=== PATIENT | female | born 2005 | race Caucasian/White ===

== ENCOUNTER 2025-05-24 09:24 | Emergency (ER) | payer MEDICAID, SELFPAY ==
[2025-05-24 09:25] VITALS: BP 146/82; PULSE 80; RESP 16; TEMP 36.7; O2SAT 99; BMI 24.6
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
[2025-05-24 11:02] LABS: Mucous, Urine 0 SEEN /hpf (<or=2+); Red Blood Cells-Urine 0 SEEN /hpf (0-5); Squamous Epithelial Cells - UA 0 SEEN /hpf (5-10)
[2025-05-24 11:07] LABS: Color, Urine Yellow (Yellow); Glucose, Dipstick Normal (Normal); Ketone-Dipstick Negative (Negative); Leukocyte Esterase-Dipstick Negative /ul (Negative); Nitrite-Dipstick Negative (Negative); Occult Blood-Urine 50 /ul (Negative); Protein-Dipstick 15 mg/dl (Negative); Specific Gravity, Urine 1.010 (1.002-1.030); Urine Bilirubin Dipstick Negative (Negative)
[2025-05-24 11:15] LABS: Internal QC Validated? YES +Cl - CLEAR BKGD; Pregnancy, Urine Negative Negative; Record Kit Lot#,Urine Preg 962302
[2025-05-24 11:25] VITALS: BP 124/79; PULSE 71; RESP 16; O2SAT 100
--- NOTE | 2025-05-24 11:39 | US_ITS ---
PROCEDURE: PELVIC (NON ) 05/24/2025 REASON FOR EXAM: PELVIC PAIN TECHNIQUE: PELVIC (NON ) COMPARISON: None FINDINGS: LMP: March 28, 2025. Measurements: Uterus: 6.2 cm x 4 cm x 3.1 cm with a volume of 40.87 mL Endometrial Thickness: 5.1 mm. Right Ovary: 2.8 cm x 2.7 cm x 2.1 cm with a volume of 8.38 mL. Left Ovary: 2.7 cm x 2.7 cm x 2.5 cm with a volume of 9.63 mL. Uterus: Normal size, myometrial echotexture, and contour. Endometrium: Unremarkable. Right ovary: Normal size and echotexture. Left ovary: Normal size and echotexture. Other: No large pelvic mass identified. US/Pelvic (Non ) IMPRESSION: NORMAL TRANSABDOMINAL PELVIC ULTRASOUND. Reading Location: [id number]
[2025-05-24 12:20] LABS: Hematocrit 34.6 % (37-47); Hemoglobin 11.0 g/dL (12.0-15.0); Immature Granulocytes Count 0.010 X10^3/uL (0.0-0.0); Mean Corp Hgb Conc 31.8 g/dL (32-36); Mean Corpuscular Volume 80.5 fL (81-99); Mean Platelet Vol. 8.8 fl (6.2-12.0); NRBC Flagged by Analyzer 0 % (0-5); Platelet Count 321 K/mm3 (150-450); RBC Distribution Width CV 15.6 % (11.6-14.6); RBC Distribution Width SD 45.6 fl (35.1-43.9); Red Blood Count 4.30 M/mm3 (4.2-5.4); White Blood Count 7.0 K/mm3 (4.4-11.0)
[2025-05-24 12:34] LABS: AST(SGOT) 19 U/L (<=31); Alanine Aminotransfer ALT/SGPT 7 U/L (<=34); Albumin, Serum 4.5 g/dL (3.5-5.0); Alkaline Phosphatase 37 U/L (35-104); Anion Gap 13 (5-15); BUN 10 mg/dL (4-19); BUN/Creat Ratio 16.1 RATIO (10-20); Calcium,Total 9.5 mg/dL (7.6-11.0); Carbon Dioxide 23.0 mmol/L (21.0-32.0); Chloride 104 mmol/L (98-108); Estimated Creatinine Clearance 124.07 ml/min (50-250); Globulin 3.7 g/dL (2.2-4.2); Glucose 91 mg/dL (70-99); Lipase 35 U/L (13-75); Potassium 3.3 mmol/L (3.3-5.1)
[2025-05-24 13:00] VITALS: BP 124/76; PULSE 66; RESP 18; O2SAT 97
[2025-05-24 14:10] VITALS: BP 130/82; PULSE 69; RESP 18; TEMP 36.7; O2SAT 98
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
--- NOTE | 2025-05-25 11:06 | CM.ED ---
Social [facility] plan home and needed a phone call to follow up on. Patient reportedly was attending an intake session at [facility] immediately following ED departure. SW called [facility] to clarify if patient attended an intake anywhere in their department. Reportedly, partient did not attend an intake counseling appointment or enter [facility]. SW called patient and spoke with patient (ph: [phone]). Patient stated being okay and being with Iliana, patient's friend currently. Patient stated Iliana is off work as well over the next two days, so patient reports having plenty of support over the next two days. Patient stated not attending the intake appointment at [facility], though states knowing patient needs to go due to wanting to try IOP there. SW reminded patient of need to call Crisis for help or return to ED if symptoms increase. Patient expressed understanding and denied further needs at this time. Leti Morales, COMPUTER SYSTEMS AUDITOR, PLASTIC SURGERY MANAGER
== END 2025-05-24 14:42 | disposition home or self-care (01) ==
PROVIDERS: Emergency Provider Emergency Medicine; Visit Provider Emergency Medicine
DX: R10.9 Unspecified abdominal pain (principal); D50.9 Iron deficiency anemia, unspecified; R10.2 Pelvic and perineal pain; N76.0 Acute vaginitis; N92.6 Irregular menstruation, unspecified; A74.9 Chlamydial infection, unspecified
CPT/HCPCS: 76856; 80053; 81001; 81025; 83690; 85025; 87210; 87491; 87591; 99282

== ENCOUNTER 2025-05-26 00:41 | Emergency (ER) | payer MEDICAID, SELFPAY ==
[2025-05-26 00:45] VITALS: BP 155/93; PULSE 76; RESP 18; TEMP 37.1; O2SAT 99; BMI 25.1
[2025-05-26] MEDS: Lidocaine 2% Viscous15 ML UDC 15 ML PO (01:26)
--- OUTSIDE RECORDS SUMMARY | 2025-05-26 01:31 | XMS RPT_ITS | CCD ---
Author Organization [facility] Inform ion Partnership [facility] Care Team Providers Care Fuel Buyer Name Role Phone Mariama Garcia Primary Care Provider Cassie Casanova Primary Care Provider [phone] Mariama Garcia Primary Care Provider Cassie Casanova Primary Care Provider [phone] Sumit Palacios Primary Care Provider SUMIT PALACIOS Primary Care UnavailWALDO Martin Attending Unavailable PHYSICIAN, NONE Primary Care Unavailable ELIZABETH MIKE DO Attending Unavailable Dr. Shy Lozano DO Emergency Provider Care Physician, No Primary Primary Care Provider Unavailable Shy Lozano Attending Unavailable Care Physician, No Primary Primary Care Unava ilable Allergies Allergy Classification Reported Allergen(s) Allergy Type Date of Onset Reaction(s) Facility (1 source) Latex Allergy to substance 05-24-2025 [facility] (1 source) Latex Drug allergy (disorder) 05-24-2025 [facility] Repository Medications Current Medications Medication Drug Class(es) Dates Sig (Normalized) Sig (Original) amphetamine aspartate 2.5 mg / amphetamine sulfate 2.5 mg / dextroamphetamine saccharate 2.5 mg / dextroamphetamine sulfate 2.5 mg oral tablet (8 sources) Central Nervous System Stimulant Start: 01-22-2022 amphetamine-dext roamphetamine (ADDERALL) 10 MG tablet Take in afternoon 0 01/22/2022 Active Start: 10-30-2021 take 1 capsule by [facility] once daily in the morning amphetamine-dextroamphetamine (ADDERALL XR) 20 MG extended release capsule Take 20 mg by mouth every morning. 0 10/30/2021 Active Start: 06-10-2021 End: 10-23-2021 take 1 tablet by mouth once amphetamine-dextroamphetamine (ADDERALL) 10 MG tablet take 1 tablet by mouth EVERY AFTERNOON 0 06/10/2021 10/23/2021 Discontinued (LIST CLEANUP) 12 hr dextromethorphan hydrobromide 30 mg / guaiFENesin 600 mg extended release oral tablet (1 source) Uncompetitive W-pxeisy-S-aspartate Receptor Antagonist, Sigma-1 Agonist Start: 06-26-2022 End: 07-03-2022 take 1 tablet by mouth twice daily dextromethorphan-guaiFENesin (MUCINEX DM) 30-600 mg per tablet Indications: Viral URI with cough Take 1 tablet by mouth twice daily for 7 days. 14 tablet 0 06/26/2022 07/03/2022 Active Comment on above: Take 1 tablet by hernandez th twice daily for 7 days. doxycycline monohydrate 100 mg oral capsule (1 source) Tetracycline-class Drug Start: 05-24-2025 take 1 capsule by mouth twice daily Doxycycline Monohydrate 100 mg capsule Active 100 mg PO TWICE A DAY 14 0 May 24, 2025 12:00am escitalopram 20 mg oral tablet (5 sources) Serotonin Reuptake Inhibitor Start: 09-26-2021 End: 10-23-2021 take 1 tablet by mouth once daily escitalopram (LEXAPRO) 20 MG tablet Take 1 tablet by mouth daily 30 tablet 0 09/26/2021 10/23/2021 Discontinued (LIST CLEANUP) famotidine 40 mg oral tablet (2 sources) Histamine-2 Receptor Antagonist Start: 02-01-2023 End: 02-21-2023 take 1 tablet by mouth once daily as needed for gastroe sophage al reflux disease famotidine (Pepcid) 40 MG tablet Take 1 tablet (40 mg) by mouth Nightly as needed for heartburn for up to 20 days. 30 tablet 0 02/01/2023 02/21/2023 Active ibuprofen 800 mg oral tablet (4 sources) Nonsteroidal Anti-inflammatory Drug End: 10-23-2021 take 1 tablet by mouth every six hours as needed for pain ibuprofen (ADVIL;MOTRIN) 800 MG tablet Take 800 mg by mouth every 6 hours as needed for Pain 0 10/23/2021 Discontinued (LIST CLEANUP) metroNIDAZOLE 500 mg oral tablet (1 source) Nitroimidazole Antimicrobial Start: 05-24-2025 take 1 tablet by mouth twice daily Metronidazole 500 mg tablet Active 500 mg PO TWICE A DAY 14 7 0 May 24, 2025 12:00am naproxen 500 mg oral tablet (2 sources) Nonsteroidal Anti-inflammatory Drug Start: 05-06-2022 take 1 tablet by mouth twice daily naproxen (NAPROSYN) 500 MG tablet Take 1 tablet by mouth 2 times daily 20 tablet 0 05/06/2022 Active nitrofurantoin, macrocrystals 25 mg / nitrofurantoin, monohydrate 75 mg oral capsule (4 sources) Nitrofuran Antibacterial Start: 05-02-2022 End: 05-07-2022 take 1 capsule by mouth twice daily nitrofurantoin monohydrate and macrocrystal (MACROBID) 100 mg capsule Indications: Nausea , Irregular menses , Leukocytes in urine , Urinary frequency Take 1 capsule by mouth twice daily for 5 days. 10 capsule 0 05/02/2022 05/07/2022 Active Comment on above: Take 1 capsule by [facility] twice daily for 5 days. Completed/Discontinued Medications Medication Drug Class(es) Dates Sig (Normalized) Sig (Original) aluminum hydroxide 40 mg/ml / magnesium hydroxide 40 mg/ml / simethicone 4 mg/ml oral suspension (2 sources) Start: 02-02-20 End: 02-02-20 aluminum & magnesium hydroxide-simethicone (Mylanta) 200-200-20 MG/5ML oral suspension 10 mL brompheniramine maleate 0.4 mg/ml / dextromethorphan hydrobromide 2 mg/ml / pseudoephedrine hydrochloride 6 mg/ml oral solution (1 source) alpha-Adrenergic Agonist, Uncompetitive U-iplzki-Q-aspartat e Receptor Antagonist, Sigma-1 Agonist Start: 06-26-20 End: 06-26-20 take 10 mL by mouth four times daily as needed Brompheniramine-Pseud oeph-DM (BROMFED DM) 2-30-10 mg/5 mL syrup Indications: Viral URI with cough , Pharyngitis, unspecified etiology Take 10 mL by mouth four times daily as needed. 118 mL 0 06/26/2022 06/26/2022 Discontinued (Course of therapy completed) Comment on above: Take 10 mL by mouth four times daily as needed. ergocalciferol 1.25 mg oral capsule (3 sources) Provitamin D2 Compound Start: 05-07-20 take 1 capsule by mouth every week ergocalciferol 50,000 unit capsule (VITAMIN D2, DRISDOL) Indications: vitamin D deficiency Take 1 capsule by mouth one time a week. Use as directed. 12 capsule 3 05/07/2022 Active Comment on above: Take 1 capsule by [facility] one time a week. Use as directed. fluticasone propionate 0.05 mg/actuat metered dose nasal spray (1 source) Corticosteroid Start: 06-26-20 take 1 spray(s) nasal route twice daily fluticasone (FLONASE ALLERGY RELIEF) 50 mcg/actuation nasal spray Indications: Viral URI with cough , Pharyngitis, unspecified etiology Use 1 Golden in each nostril twice daily. 1 Each 0 06/26/2022 Active Comment on above: Use 1 Golden in each nostril twice daily. glucagon (rdna) 1 mg injection (2 sources) Antihypoglycemic Agent Start: 02-01-20 End: 02-02-20 23 glucagon (human recombinant) injection 1 mg lidocaine hydrochloride 20 mg/ml mucous membrane topical solution (2 sources) Antiarrhythmic, Amide Local Anesthetic Start: 02-02-20 End: 02-02-20 23 lidocaine (Xylocaine) 2 % mouth solution 15 mL medroxyPROGESTERone (1 source) Progestin End: 05-02-20 medroxyprogesterone acetate (DEPO-PROVERA INTRAMUSC.) Inject intramuscularly. 0 05/02/2022 Discontinued Comment on above: Inject intramuscular ly. methylPREDNISolone (1 source) Corticosteroid Start: 06-26-20 methylPREDNISolone (MEDROL DOSE-PACK) 4 mg Dose-Pack Indications: Headache, unspecified headache type As Instructed per package 21 tablet 0 06/26/2022 Active Comment on above: As Instructed per pa ckage 1 ml morphine sulfate 4 mg/ml cartridge (1 source) Opioid Agonist Start: 06-16-20 End: 06-16-20 21 morphine injection 4 mg 2 ml ondansetron 2 mg/ml injection (1 source) Serotonin-3 Receptor Antagonist Start: 06-16-20 21 End: 06-16-20 ondansetron (ZOFRAN) injection 4 mg 50 ml sodium chloride 9 mg/ml injection (1 source) Start: 06-16-20 End: 06-16-20 0.9 % sodium chloride bolus Problems Problem Classification Problem Date Documented Da te Episodic/Chronic Abdominal pain (3 sources) Left lower quadrant pain; Translations: [Left lower quadrant pain] Onset: 02-02-2025 Episodic Administrative/social admission (1 source) Patient encounter status; Translations: [Persons encountering health services in other specified circumstances] Episodic Bacterial infection; unspecified site (1 source) Chlamydial infection; Translations: [Chlamydial infection, unspecified] 05-24-2025 Episodic Deficiency and other anemia (1 source) Microcytic anemia; Translations: [Iron deficiency anemia, unspecified] 05-24-2025 Episodic Genitourinary symptoms and ill-defined conditions (2 sources) Leukocytes in urine; Translations: [Other abnormal findings in urine] Episodic Headache; including migraine (1 source) Headache; Translations: [Headache, unspecified headache type] Episodic Inflammatory diseases of female pelvic organs (1 source) Bacterial vaginosis; Translations: [Acute vaginitis] 05-24-2025 Episodic Menstrual disorders (2 sources) Irregular periods; Translations: [Irregular menstruation, unspecified] Chronic Mood disorders (1 source) Depressive disorder; Translations: [Depression, unspecified depression type] Chronic Nausea and vomiting (1 source) Nausea; Translations: [Nausea] Episodic Nutritional deficiencies (1 source) Vitamin D deficiency; Translations: [Vitamin D deficiency, unspecified] Chronic Other injuries and conditions due to external causes (2 sources) Food lodged in esophagus; Translations: [Food in esophagus causing other injury, initial encounter] Episodic Other injuries and conditions due to external causes (2 sources) Food in esophagus causing other injury, initial encounter; Translations: [Food in esophagus causing other injury, initial encounter] Onset: 02-01-2023 Episodic Other non-traumatic joint disorders (2 sources) Mass of joint of right wrist; Translations: [Other specified joint disorders, right wrist] Episodic Other screening for suspected conditions (not mental disorders or infectious disease) (1 source) test negative; Translations: [Encounter for test, result negative] 05-24-2025 Episodic Other upper respiratory infections (2 sources) Viral upper respiratory tract infection; Translations: [Acute upper respiratory infection, unspecified] Episodic Ovarian cyst (1 source) Cyst of left ovary; Translations: [Unspecified ovarian cyst, left side] Episodic Residual codes; unclassified (1 source) Deliberate self-cutting; Translations: [Other problems related to lifestyle] Episodic Sprains and strains (1 source) Strain of neck muscle; Translations: [Strain of muscle, fascia and tendon at neck level, initial encounter] Episodic Suicide and intentional self-inflicted injury (1 source) Suicidal thoughts; Translations: [Suicidal ideations] Episodic Superficial injury; contusion (1 source) Right wrist contusion; Translations: [Contusion of right wrist, initial encounter] Episodic Results Test Name Value Interpretation Reference Range Facility Absolute lymphocyte countOrd ered By: Shy Lozano on 05-24-2025 Lymphocytes Auto (Unsp spec) [#/Vol] 1.72 10*3/uL 0.83-4.51 [facility] Absolute neutrophil countOrd ered By: Shy Lozano on 05-24-2025 Neutrophils (Bld) [#/Vol] 4.6 10*3/uL 2.0-7.7 [facility] Anion gap in Serum or Plasma Ordered By: Shy Lozano on 05-24-2025 Anion gap [Moles/Vol] 13 mmol/L 5-15 [facility] Automated lymphocyte count a s percentage of total leukocytesOrdered By: Shy Lozano on 05-24-2025 Lymphocytes/100 WBC Auto (Unsp spec) 24.5 % 19-41 [facility] BUN/creatinine ratioOrdered By: Shy Lozano on 05-24-2025 Urea nitrogen/Creatinine [Mass ratio] 16.1 mg/mg 10-20 [facility] Basophil percentageOrdered B y: Shy Lozano on 05-24-2025 Basophils/100 WBC (Bld) 0.9 % 0-1 [facility] Bilirubin Test strip Ql (U)O rdered By: Shy Lozano on 05-24-2025 Bilirubin Ql (U) Negative Negative [facility] Bilirubin, totalOrdered By: Shy Lozano on 05-24-2025 Bilirubin [Mass/Vol] 0.73 mg/dL 0.00-1.30 [facility] CBC W/Diff, Automatedon 07-2 Absolute Lymph 1.72 X10 3/uL Normal 0.83-4.51 [facility] Comment on above: Performed By: #### L 100.0100, L500.4050, L501.2450 #### [facility] [address] [place], [address] Absolute Neut 4.6 X10 3/uL Normal 2.0-7.7 [facility] Comment on above: Performed By: #### L 100.0100, L500.4050, L501.2450 #### [facility] [address] [place], [address] Basophils/100 WBC (Bld) 0.9 % Normal 0-1 [facility] Comment on above: Performed By: #### L 100.0100, L500.4050, L501.2450 #### [facility] [address] [place], [address] Eosinophils/100 WBC (Bld) 1.3 % Normal 0-5 [facility] Comment on above: Performed By: #### L 100.0100, L500.4050, L501.2450 #### [facility] [address] [place], [address] Erythrocyte distribution width (RBC) [Ratio] 15.6 % High 11.6-14.6 [facility] Comment on above: Performed By: #### L 100.0100, L500.4050, L501.2450 #### [facility] [address] [place], [address] Hematocrit (Bld) [Volume fraction] 34.6 % Low 37-47 [facility] Comment on above: Performed By: #### L 100.0100, L500.4050, L501.2450 #### [facility] [address] [place], [address] Hemoglobin (Bld) [Mass/Vol] 11.0 g/dL Low 12.0-15.0 [facility] Comment on above: Performed By: #### L 100.0100, L500.4050, L501.2450 #### [facility] [address] [place], [address] IG% 0.100 Normal 0.0-0.9 [facility] Comment on above: Result Comment: IG% - Immature Granulocytes (promyelocytes, myelocytes and metamyelocytes) > 1% indicates that a LEFT SHIFT is Present. Performed By: #### L 100.0100, L500.4050, L501.2450 #### [facility] [address] [place], [address] Lymphocytes/100 WBC (Bld) 24.5 % Normal 19-41 [facility] Comment on above: Performed By: #### L 100.0100, L500.4050, L501.2450 #### [facility] [address] [place], [address] MCH (RBC) [Entitic mass] 25.6 pg Low 27.0-32.0 [facility] Comment on above: Performed By: #### L 100.0100, L500.4050, L501.2450 #### [facility] [address] [place], [address] MCHC (RBC) [Mass/Vol] 31.8 g/dL Low 32-36 [facility] Comment on above: Performed By: #### L 100.0100, L500.4050, L501.2450 #### [facility] [address] [place], [address] MCV (RBC) [Entitic vol] 80.5 fL Low 81-99 [facility] Comment on above: Performed By: #### L 100.0100, L500.4050, L501.2450 #### [facility] [address] [place], [address] Monocytes/100 WBC (Bld) 8.3 % Normal 0-10 [facility] Comment on above: Performed By: #### L 100.0100, L500.4050, L501.2450 #### [facility] [address] [place], [address] Neutrophils/100 WBC (Bld) 64.9 % Normal 47-70 [facility] Comment on above: Performed By: #### L 100.0100, L500.4050, L501.2450 #### [facility] [address] [place], [address] Nucleated RBC (Bld) [#/Vol] 0 10*3/uL Normal 0-5 [facility] Comment on above: Performed By: #### L 100.0100, L500.4050, L501.2450 #### [facility] [address] [place], [address] Platelet mean volume (Bld) [Entitic vol] 8.8 fL Normal 6.2-12.0 [facility] Comment on above: Performed By: #### L 100.0100, L500.4050, L501.2450 #### [facility] [address] [place], [address] Platelets (Bld) [#/Vol] 321 10*3/uL Normal 150-450 [facility] Comment on above: Performed By: #### L 100.0100, L500.4050, L501.2450 #### [facility] [address] [place], [address] RBC (Bld) [#/Vol] 4.30 10*6/uL Normal 4.2-5.4 [facility] Comment on above: Performed By: #### L 100.0100, L500.4050, L501.2450 #### [facility] [address] [place], [address] RDW SD 45.6 fl High 35.1-43.9 [facility] Comment on above: Performed By: #### L 100.0100, L500.4050, L501.2450 #### [facility] [address] [place], [address] WBC (Bld) [#/Vol] 7.0 10*3/uL Normal 4.4-11.0 [facility] Comment on above: Performed By: #### L 100.0100, L500.4050, [id number] #### [facility] [address] [place], [address] Carbon dioxide, total [Moles /volume] in Central venous bloodOrdered By: Shy Lozano on 05-24-2025 CO2 [Moles/Vol] 23.0 mmol/L 21.0-32.0 [facility] Chloride assayOrdered By: Filemon Lozano on 05-24-2025 Chloride [Moles/Vol] 104 mmol/L 98-108 [facility] Comprehensive Metabolic Prof ilon 05-24-2025 Albumin [Mass/Vol] 4.5 g/dL Normal 3.5-5.0 [facility] Comment on above: Performed By: #### L 100.0100, L500.4050, L5.2450 #### [facility] [address] [place], [address] Albumin/Globulin [Mass ratio] 1.2 {ratio} Normal 0.9-2.4 [facility] Comment on above: Performed By: #### L 100.0100, L500.4050, L501.2450 #### [facility] [address] [place], [address] ALK PHOS 37 U/L Normal 35-104 [facility] Comment on above: Performed By: #### L 100.0100, L500.4050, L501.2450 #### [facility] [address] [place], [address] ALT [Catalytic activity/Vol] 7 U/L Normal <=34 [facility] Comment on above: Performed By: #### L 100.0100, L500.4050, L501.2450 #### [facility] [address] [place], [address] AST [Catalytic activity/Vol] 19 U/L Normal <=31 [facility] Comment on above: Performed By: #### L 100.0100, L500.4050, L501.2450 #### [facility] [address] [place], [address] Bilirubin [Mass/Vol] 0.73 mg/dL Normal 0.00-1.30 [facility] Comment on above: Performed By: #### L 100.0100, L500.4050, L501.2450 #### [facility] [address] [place], [address] BUN/CRE 16.1 RATIO Normal 10-20 [facility] Comment on above: Performed By: #### L 100.0100, L500.4050, L501.2450 #### [facility] [address] [place], [address] Calcium [Mass/Vol] 9.5 mg/dL Normal 7.6-11.0 [facility] Comment on above: Performed By: #### L 100.0100, L500.4050, L501.2450 #### [facility] [address] [place], [address] Chloride [Moles/Vol] 104 mmol/L Normal 98-108 [facility] Comment on above: Performed By: #### L 100.0100, L500.4050, L501.2450 #### [facility] [address] [place], [address] CO2 [Moles/Vol] 23.0 mmol/L Normal 21.0-32.0 [facility] Comment on above: Performed By: #### L 100.0100, L500.4050, L501.2450 #### [facility] [address] [place], [address] Creatinine [Mass/Vol] 0.64 mg/dL Low 0.70-1.20 [facility] Comment on above: Performed By: #### L 100.0100, L500.4050, L501.2450 #### [facility] [address] [place], [address] ECRCL 124.07 ml/min Normal 50-250 [facility] Comment on above: Performed By: #### L 100.0100, L500.4050, L501.2450 #### [facility] [address] [place], [address] GAP 13 Normal 5-15 [facility] Comment on above: Performed By: #### L 100.0100, L500.4050, L501.2450 #### [facility] [address] [place], [address] GFR/1.73 sq M.predicted among non-blacks MDRD (S/P/Bld) [Vol rate/Area] 128 mL/min/{1.73_m2} Normal >60 [facility] Comment on above: Result Comment: mL/m in/1.73m2 CKD-EPI Creatinine Equation (2020) Performed By: #### L 100.0100, L500.4050, L501.2450 #### [facility] [address] [place], [address] Globulin (S) [Mass/Vol] 3.7 g/dL Normal 2.2-4.2 [facility] Comment on above: Performed By: #### L 100.0100, L500.4050, L501.2450 #### [facility] [address] [place], [address] Glucose [Mass/Vol] 91 mg/dL Normal 70-99 [facility] Comment on above: Performed By: #### L 100.0100, L500.4050, L501.2450 #### [facility] [address] [place], [address] Potassium [Moles/Vol] 3.3 mmol/L Normal 3.3-5.1 [facility] Comment on above: Performed By: #### L 100.0100, L500.4050, L501.2450 #### [facility] [address] [place], [address] Sodium [Moles/Vol] 140 mmol/L Normal 133-145 [facility] Comment on above: Performed By: #### L 100.0100, L500.4050, L501.2450 #### [facility] [address] [place], [address] T PROT 8.1 g/dL Normal 5.9-8.4 [facility] Comment on above: Performed By: #### L 100.0100, L500.4050, L501.2450 #### [facility] [address] [place], [address] Urea nitrogen [Mass/Vol] 10 mg/dL Normal 4-19 [facility] Comment on above: Performed By: #### L 100.0100, L500.4050, L501.2450 #### [facility] [address] [place], [address] Emergency Department Summary on 05-24-2025 Emergency Department Summary [facility] Medical Records Department [address] [place] [address] Emergency Department Summary 05/24/25 MR#: [id number] Acct: [id number] Name: MATTIE RODRIGUEZ Rep #: [id number] : 2005 20 From: Shy Lozano DO PCP: Care Physician,No Primary Status:DEP ER Location: ED HPI History of Present Illness Chief Complaint: Abd Pain Informant: patient Narrative Narrative: Patient is a 20-year-old female no stated past medical history presenting with lower abdominal pain, vaginal spotting and abnormal menstrual cycle. Patient states her last menstrual period was the beginning of March. She is about 3 weeks late. She notes over the past week she has had intermittent spotting where it feels like her period about to stop and she has had some pink blood with wiping but then she will never actually have a menstrual cycle. Today of the blood was purple in color which alarmed her and prompted her to come to the emergency room. She also notes that she has been having abdominal pain for about a week. She states it is an intermittent lower abdominal twisting pain. It has not been progressing. States it happens a couple times a day. She has had some associated nausea, dizziness and feeling she is going to pass out at work for the past 3 weeks. She did have an episode of vomiting. She denies any fever or chills. She did take 2 home test but no line showed up for them both times (both control and the test line). She is notes she does have a history of ovarian cyst but states this feels differently. She denies any associated diarrhea. Denies any urinary symptoms such as hematuria, dysuria or frequency. Denies any history of abdominal surgeries. No other complaints or concerns at this time. Is not on any control. PFSH [facility] Home Medications ???Medication ???Instructions ???Recorded ???Last Taken ???Type doxycycline monohydrate 100 mg 100 mg PO BID #14 CAPSULES 5 Unknown Rx capsule metronidazole 500 mg tablet 500 mg PO BID 7 days #14 tabs 04/28 06/21 Unknown Rx Allergy/AdvReac Type Severity Reaction Status Date / Time latex Allergy Mild Rash Verified 05/24/25 09:25 Social History Smoking Status: Never smoker ROS ROS ED Constitutional Constitutional ED: Denies chills or fever(s) Gastrointestinal Gastrointestinal: Reports abdominal pain, nausea and vomiting; Denies diarrhea Genitourinary Genitourinary ED: Reports LMP (females 10-50) Details: Comment: (Beginning of March ) and other Details: Abnormal vaginal bleeding, denies abnormal vaginal discharge ; Denies dysuria or hematuria Musculoskeletal Musculoskeletal: Denies arthralgias or myalgias Neurologic Neurologic: Reports other Details: Lightheaded ; Denies weakness Psychiatric Psychiatric: Reports anxiety Hematologic/Lymphatic Hematologic/Lymphatic : Denies easy bleeding or easy bruising EXAM Physical Exam Const Vital Signs: 05/24/25 09:25 05/24/25 11:25 05/24/25 13:00 Temperature 98.1 F Temperature Source Oral Pulse Rate 80 71 66 Respiratory Rate 16 16 18 Blood Pressure 146/82 H 124/79 H 124/76 H Blood Pressure Mean 103 94 92 Pulse Ox 99 100 97 Oxygen Delivery Method Room Air Room Air Room Air Positive well nourished and well developed General Appearance ED: well developed and NAD HEENT Reports moist mucous membranes Neck supple Chest Wall inspection of chest normal and palpation of chest normal Resp normal respiratory effort and clear to auscultation bilaterally Cardio regular rate and regular rhythm GI normal to inspection, nondistended, normoactive bowel sounds Palpation: soft and tender suprapubic; Negative for guarding Narrative: Chaperoned external exam performed. Normal external genitalia. Blood-tinged thick vaginal discharge present. No clots. No cervical motion tenderness. Back/Spine no CVA tenderness General Back: Negative for CVA tenderness Extremity normal to inspection Neuro oriented x3 Sensorium / Orientation: alert Psych mental status grossly normal Mood Affect: anxious Skin no rashes or lesions noted and no wounds MDM MDM MDM Narrative Medical decision making narrative: Patient followed for abnormal menstrual cycle, vaginal spotting and pelvic discomfort. She appears nontoxic in no acute distress. Differential includes , ectopic , dysfunctional uterine bleeding, STI, pelvic inflammatory disease, tubo-ovarian abscess and urinary tract infection. Pelvic exam is not consistent with PID or tubo-ovarian abscess but she does have some abnormal thick blood-tinged discharge present. No cervical motion tenderness. Urine is negative. Urinalysis is not consistent with UTI. Her wet prep is p (more content not included)... Normal [facility] Eosinophil percentageOrdered By: Shy Lozano on 05-24-2025 Eosinophils/100 WBC (Bld) 1.3 % 0-5 [facility] Erythrocyte distribution wid th ratioOrdered By: Shy Lozano on 05-24-2025 Erythrocyte distribution width (RBC) [Ratio] 15.6 % High 11.6-14.6 [facility] Erythrocyte distribution wid th standard deviationOrdered By: Shy Lozano on 05-24-2025 Erythrocyte distribution width (RBC) [Ratio] 45.6 fl High 35.1-43.9 [facility] Glomerular filtration rate ( GFR) estimation/1.73 sq m using serum, plasma, or whole bOrdered By: Shy Lozano on 05-24-2025 GFR/1.73 sq M.predicted among non-blacks MDRD (S/P/Bld) [Vol rate/Area] 128 mL/min/{1.73_m2} >60 [facility] Comment on above: mL/min/1.73m2 CKD-EP I Creatinine Equation (2020) Hematocrit Auto (Bld) [Volum e fraction]Ordered By: Shy Lozano on 05-24-2025 Hematocrit (Bld) [Volume fraction] 34.6 % Low 37-47 [facility] Hemoglobin measurementOrdere d By: Shy Lozano on 05-24-2025 Hemoglobin (Bld) [Mass/Vol] 11.0 g/dL Low 12.0-15.0 [facility] Immature granulocytes/100 WB C Auto (Bld)Ordered By: Shy Lozano on 05-24-2025 Immature granulocytes/100 WBC (Bld) 0.100 % 0.0-0.9 [facility] Comment on above: IG% - Immature Granu locytes (promyelocytes, myelocytes and metamyelocytes) > 1% indicates that a LEFT SHIFT is Present. Ketones Test strip Ql (U)Ord ered By: Shy Lozano on 05-24-2025 Ketones Ql (U) Negative Negative [facility] - Chemistry and C hemistry - challengeOrdered By: Shy Lozano on 05-24-2025 AST [Catalytic activity/Vol] 19 U/L <32 [facility] Lipaseon 05-24-2025 Lipase [Catalytic activity/Vol] 35 U/L Normal 13-75 [facility] Comment on above: Result Comment: Plea se note: LIPASE revised reference range effective 23. New Lipase methodology. Expected to produce lower values than the previous assay method. NEW Reference Range: 13 - 75 U/L Performed By: #### L 100.0100, L500.4050, L501.2450 #### [facility] [address] [place], [place], [address] Lipase measurementOrdered By : Shy Lozano on 05-24-2025 Lipase [Catalytic activity/Vol] 35 U/L 13-75 [facility] Comment on above: Please note:LIPASE r evised reference range effective 23. New Lipase methodology. Expected to produce lower values than the previous assay method. NEW Reference Range: 13 - 75 U/L M8200.2203on 05-24-2025 M8200.2203 Pending Chlamydia Trachomatis PCR POSITIVE for Chlamydia trachomatisA N. gonorrhoeae PCR Negative for N. gonorrhoeae Normal [facility] Comment on above: Performed By: #### M 8200.2203 #### [facility] [address] [place], [address] MCV (mean corpuscular volume ) determinationOrdered By: Shy Lozano on 05-24-2025 MCV (RBC) [Entitic vol] 80.5 fL Low 81-99 [facility] Mean corpuscular hemoglobin (MCH) determinationOrdered By: Shy Lozano on 05-24-2025 MCH (RBC) [Entitic mass] 25.6 pg Low 27.0-32.0 [facility] Mean corpuscular hemoglobin concentration (MCHC) determinationOrdered By: Shy Lozano on 05-24-2025 MCHC (RBC) [Mass/Vol] 31.8 g/dL Low 32-36 [facility] Mean platelet volume determi nationOrdered By: Shy Lozano on 05-24-2025 Platelet mean volume (Bld) [Entitic vol] 8.8 fL 6.2-12.0 [facility] Microscopic analysis of urin e for red blood cells (RBC)Ordered By: Shy Lozano on 05-24-2025 Microscopic analysis of urine for red blood cells (RBC) 0 SEEN /hpf 0-5 [facility] Monocyte percentageOrdered B y: Shy Lozano on 05-24-2025 Monocytes/100 WBC (Bld) 8.3 % 0-10 [facility] Mucus LM Ql (Urine sed)Order ed By: Shy Lozano on 05-24-2025 Mucus Ql (Urine sed) 0 SEEN /hpf [facility] Neutrophil percentageOrdered By: Shy Lozano on 05-24-2025 Neutrophils/100 WBC (Bld) 64.9 % 47-70 [facility] Nitrite Test strip Ql (U)Ord ered By: Shy Lozano on 05-24-2025 Nitrite Ql (U) Negative Negative [facility] Nucleated red blood cell per centageOrdered By: Shy Lozano on 05-24-2025 Nucleated RBC/100 WBC (Bld) [Ratio] 0 % 0-5 [facility] Pelvic (Non )on 04-28 Pelvic (Non ) [facility] Imaging Services [address] [place] [id number] Pelvic (Non ) MR#: [id number] Acct: [id number] Name: MATTIE RODRIGUEZ Rep #: [id number] : 2005 F 20 From: Roamrio jackson MD PCP: Care Physician,No Primary Status: REG ER Study: Pelvic (Non ) Date of Exam: 05/24/25 Exam# [id number] Ordering Dr: Shy Lozano DO PROCEDURE: PELVIC (NON ) 05/24/2025 REASON FOR EXAM: PELVIC PAIN TECHNIQUE: PELVIC (NON ) COMPARISON: None FINDINGS: LMP: March 28, 2025. Measurements: Uterus: 6.2 cm x 4 cm x 3.1 cm with a volume of 40.87 mL Endometrial Thickness: 5.1 mm. Right Ovary: 2.8 cm x 2.7 cm x 2.1 cm with a volume of 8.38 mL. Left Ovary: 2.7 cm x 2.7 cm x 2.5 cm with a volume of 9.63 mL. Uterus: Normal size, myometrial echotexture, and contour. Endometrium: Unremarkable. Right ovary: Normal size and echotexture. Left ovary: Normal size and echotexture. Other: No large pelvic mass identified. US/Pelvic (Non ) IMPRESSION: NORMAL TRANSABDOMINAL PELVIC ULTRASOUND. Reading Location: [id number] CC: Dr. Shy Lozano, DO; No Primary Care Physician Financial Compliance Officer: Signed Normal [facility] Platelet countOrdered By: Filemon Lozano on 05-24-2025 Platelets (Bld) [#/Vol] 321 10*3/uL 150-450 [facility] Potassium measurement (mass/ volume)Ordered By: Shy Lozano on 05-24-2025 Potassium (Unsp spec) [Mass/Vol] 3.3 mmol/L 3.3-5.1 [facility] ,Urineon 05-24-2025 Beta HCG ( test) Ql (U) Negative Normal [facility] Comment on above: Result Comment: Very dilute urine specimens, as indicated by a low specific gravity, may not contain used equipment sales representative levels of hCG. If is still suspected, a first morning urine specimen should be collected 48 hours later and tested. Performed By: #### L 400.0001, L400.7600 #### [facility] [address] [place], [place], [id number] Protein Test strip Ql (U)Ord ered By: Shy Lozano on 05-24-2025 Protein Ql (U) 15 mg/dl High Negative [facility] RBC Auto (Bld) [#/Vol]Ordere d By: Shy Lozano on 05-24-2025 RBC (Bld) [#/Vol] 4.30 10*6/uL 4.2-5.4 [facility] Serum creatinine measurement (mass/volume)Ordered By: Shy Lozano on 05-24-2025 Creatinine [Mass/Vol] 0.64 mg/dL Low 0.70-1.20 [facility] Serum globulin measurementOr dered By: Shy Lozano on 05-24-2025 Globulin (S) [Mass/Vol] 3.7 g/dL 2.2-4.2 [facility] Serum glucose measurement (m ass/volume)Ordered By: Shy Lozano on 05-24-2025 Glucose [Mass/Vol] 91 mg/dL 70-99 [facility] Serum or plasma alanine talamantes otransferase (ALT) measurementOrdered By: Shy Lozano on 05-24-2025 ALT [Catalytic activity/Vol] 7 U/L <35 [facility] Serum or plasma albumin chalo urement (mass/volume)Ordered By: Shy Lozano on 05-24-2025 Albumin [Mass/Vol] 4.5 g/dL 3.5-5.0 [facility] Serum or plasma albumin/glob ulin mass ratioOrdered By: Shy Lozano on 05-24-2025 Albumin/Globulin [Mass ratio] 1.2 {ratio} 0.9-2.4 [facility] Serum or plasma alkaline melanie sphatase measurementOrdered By: Shy Lozano on 05-24-2025 ALP [Catalytic activity/Vol] 37 U/L 35-104 [facility] Serum or plasma calcium chalo urement (mass/volume)Ordered By: Shy Lozano on 05-24-2025 Calcium [Mass/Vol] 9.5 mg/dL 7.6-11.0 [facility] Serum or plasma urea nitroge n measurement (mass/volume)Ordered By: Shy Lozano on 05-24-2025 Urea nitrogen [Mass/Vol] 10 mg/dL 4-19 [facility] Sodium levelOrdered By: Darya Lozano on 05-24-2025 Sodium [Moles/Vol] 140 mmol/L 133-145 [facility] Squamous epithelial cells de tection in urine sediment by light microscopyOrdered By: Shy Lozano on 05-24-2025 Epithelial cells.squamous LM Ql (Urine sed) 0 SEEN /hpf 5-10 [facility] Total proteinOrdered By: Desi Lozano on 05-24-2025 Protein [Mass/Vol] 8.1 g/dL 5.9-8.4 [facility] Trichomonas vaginalis detect ion by wet preparationOrdered By: Shy Lozano on 05-24-2025 T. vaginalis Wet prep Ql (Unsp spec) [facility] Urinalysis, Completeon 05-24 BACTERIA 0 SEEN Normal None Seen [facility] Comment on above: Order Comment: SUNIL CTOR TO SPECIFY Performed By: #### L 400.0001, L400.7600 #### [facility] [address] [place], [address] EPI,SQUAMOUS 0 SEEN Normal 5-10 [facility] Comment on above: Order Comment: SUNIL CTOR TO SPECIFY Performed By: #### L 400.0001, L400.7600 #### [facility] [address] [place], [address] Mucus Ql (Urine sed) 0 SEEN Normal [facility] Comment on above: Order Comment: SUNIL CTOR TO SPECIFY Performed By: #### L 400.0001, L400.7600 #### [facility] [address] [place], [address] RBC 0 SEEN Normal 0-5 [facility] Comment on above: Order Comment: SUNIL CTOR TO SPECIFY Performed By: #### L 400.0001, L400.7600 #### [facility] [address] [place], [address] WBC 0 SEEN Normal 0-5 [facility] Comment on above: Order Comment: SUNIL CTOR TO SPECIFY Performed By: #### L 400.0001, L400.7600 #### [facility] [address] [place], [address] Urine clarityOrdered By: Desi Lozano on 05-24-2025 Clarity (U) Clear Clear [facility] Urine color determinationOrd ered By: Shy Lozano on 05-24-2025 Color (U) Yellow Yellow [facility] Urine glucose detectionOrder ed By: Shy Lozano on 05-24-2025 Glucose Ql (U) Normal mg/dl Normal [facility] Urine leukocyte esterase det ection by dipstickOrdered By: Shy Lozano on 05-24-2025 Leukocyte esterase Test strip Ql (U) Negative Negative [facility] Urine pHOrdered By: Shy baum on 05-24-2025 pH (U) 7.0 [pH] 5.0 - 8.0 [facility] Urine testOrdered By: Shy Lozano on 05-24-2025 HCG ( test) Ql (U) Negative [facility] Comment on above: Very dilute urine sp ecimens, as indicated by a low specificgravity, may not contain used equipment sales representative levels of hCG. If is still suspected, a first morning urinespecimen should be collected 48 hours later and tested. Urine sediment bacteria coun t by microscopy (number/high power field)Ordered By: Shy Lozano on 05-24-2025 Bacteria LM.HPF (Urine sed) [#/Area] 0 /[HPF] None Seen [facility] Urine specific gravity measu rementOrdered By: Shy Lozano on 05-24-2025 Specific gravity (U) [Rel density] 1.010 1.002-1.030 [facility] Urine urobilinogen measureme ntOrdered By: Shy Lozano on 05-24-2025 Urobilinogen Ql (U) Normal mg/dl Normal [facility] Wet Prep Trichamonason 05-24 WP CLUE CELLS NOTED Motile Trichomonas NONE SEEN WBC 5-10 Normal [facility] Comment on above: Performed By: #### M 100.0500 #### [facility] [address] [place] [address], [address] White blood cell (WBC) count Ordered By: Shy Lozano on 05-24-2025 WBC (Bld) [#/Vol] 7.0 10*3/uL 4.4-11.0 [facility] White blood cell countOrdere d By: Shy Lozano on 05-24-2025 White blood cell count 0 SEEN /hpf 0-5 [facility] .Auto Diffon 02-02-2025 Basophil, Absolute 0.1 10 3/mcL Normal 0.0-0.3 [facility] Comment on above: Performed By: #### A SYDNIE, ADIFF, GFR, CBC, BMP, MDW #### [address] [address] Basophils/100 WBC (Bld) 0.7 % Normal 0.0-2.5 [facility] Comment on above: Performed By: #### A SYDNIE, ADIFF, GFR, CBC, BMP, MDW #### [address] [address] Eosinophil, Absolute 0.3 10 3/mcL Normal 0.0-0.7 [facility] Comment on above: Performed By: #### A SYDNIE, ADIFF, GFR, CBC, BMP, MDW #### [address] [address] Eosinophils/100 WBC (Bld) 3.6 % Normal 0.0-6.0 Comment on above: Performed By: #### A SYDNIE, ADIFF, GFR, CBC, BMP, MDW #### [address] [address] Lymphocyte, Absolute 2.8 10 3/mcL Normal 0.9-4.3 [facility] Comment on above: Performed By: #### A SYDNIE, ADIFF, GFR, CBC, BMP, MDW #### [address] [address] Lymphocytes/100 WBC (Bld) 33.0 % Normal 20.0-40.0 Comment on above: Performed By: #### A SYDNIE, ADIFF, GFR, CBC, BMP, MDW #### [address] [address] Monocyte, Absolute 0.6 10 3/mcL Normal 0.1-1.4 [facility] Comment on above: Performed By: #### A SYDNIE, ADIFF, GFR, CBC, BMP, MDW #### [address] [address] Monocytes/100 WBC (Bld) 7.7 % Normal 2.0-13.0 [facility] Comment on above: Performed By: #### A SYDNIE, ADIFF, GFR, CBC, BMP, MDW #### [address] [address] Neutrophils/100 WBC (Bld) 55.0 % Normal 50.0-75.0 Comment on above: Performed By: #### A SYDNIE, ADIFF, GFR, CBC, BMP, MDW #### [address] [address] .GFRon 02-02-2025 Estimated Glomerular Filtration Rate 115 ml/min/1.73sqm Normal Comment on above: Result Comment: Stages of Chronic Kidney Disease (CKD) Stage Description eGFR(ml/min/1.73 sq.m.) CKD 1 Normal kidney function or >=90 normal kindney function with possible kidney damage (ex. Proteinuria) CKD 2 Kidney damage with mild loss 60-89 of kidney function CKD 3a Mild to moderate loss of kidney 45-59 function CKD 3b Moderate to severe loss of 30-44 of kindey function CKD 4 Severe loss of kidney function 15-29 CKD 5 Kidney failure <15 Note: (go live 2024) the eGFR calculation was updated to the 2020 CKD-EPI creatinine equation without a race factor to calculate the eGFR results. Performed By: #### A SYDNIE, ADIFF, GFR, CBC, BMP, MDW #### [address] [address] .MDWon 02-02-2025 Monocyte Distribution Width 15.48 Normal 0.00-20.00 Comment on above: Result Comment: For ED adult patients suspected of sepsis, MDW<=20.0 does not rule out sepsis or risk of sepsis Performed By: #### A SYDNIE, ADIFF, GFR, CBC, BMP, MDW #### [address] [address] .NEUABSon 02-02-2025 Neutrophil, Absolute 4.6 10 3/mcL Normal 2.3-8.1 [facility] Comment on above: Performed By: #### A SYDNIE, ADIFF, GFR, CBC, BMP, MDW #### [address] [place] [address] .Urinalysis Microscopic (AO) on 02-02-2025 UA Bacteria Trace Abnormal Comment on above: Performed By: #### U AMICAO, UA, PREGU #### [address] [address] UA RBC 0-5 Abnormal None Seen Comment on above: Performed By: #### U AMICAO, UA, PREGU #### [address] [address] UA Squam Epithelial 10-15 Abnormal None Seen [facility] Comment on above: Performed By: #### U AMICAO, UA, PREGU #### [address] [address] UA WBC 10-15 Abnormal None Seen Comment on above: Performed By: #### U AMICAO, UA, PREGU #### [address] [address] BMPon 02-02-2025 BUN/Creatinine Ratio 20 ratio Normal 7-27 [facility] Comment on above: Performed By: #### A SYDNIE, ADIFF, GFR, CBC, KALEN MORA #### [address] [address] Calcium [Mass/Vol] 9.0 mg/dL Normal 8.4-10.2 [facility] Comment on above: Performed By: #### A SYDNIE, ADIFF, GFR, CBC, KALEN MORA #### [address] [address] Chloride [Moles/Vol] 101 mmol/L Normal 98-107 [facility] Comment on above: Performed By: #### A SYDNIE, ADIFF, GFR, CBC, KALEN MORA #### [address] [address] CO2 [Moles/Vol] 27 mmol/L Normal 22-29 Comment on above: Performed By: #### A SYDNIE, ADIFF, GFR, CBC, KALEN MORA #### [address] [address] Creatinine [Mass/Vol] 0.75 mg/dL Normal 0.55-1.02 [facility] Comment on above: Result Comment: Test ing performed on Siemens Dimension EXL analyzer using a modified kinetic Rajani technique. Performed By: #### A SYDNIE, ADIFF, GFR, CBC, KALEN MORA #### [address] [address] Electrolyte Balance 9.0 mEq/L Normal 4.0-15.0 [facility] Comment on above: Performed By: #### A SYDNIE, ADIFF, GFR, CBC, KALEN MORA #### [address] [address] Glucose [Mass/Vol] 92 mg/dL Normal 70-105 [facility] Comment on above: Performed By: #### A SYDNIE, ADIFF, GFR, CBC, KALEN MORA #### [address] [address] Potassium [Moles/Vol] 3.4 mmol/L Low 3.5-5.1 [facility] Comment on above: Performed By: #### A SYDNIE, ADIFF, GFR, CBCMORGAN MDW #### [address] [address] Sodium [Moles/Vol] 137 mmol/L Normal 136-145 [facility] Comment on above: Performed By: #### A SYDNIE, ADIFF, GFR, CBC, KALEN MORA #### [address] [address] Urea nitrogen [Mass/Vol] 15 mg/dL Normal 7-18 Comment on above: Performed By: #### A SYDNIE, ADIFF, GFR, CBC, KALEN MORA #### [address] [address] CBCon 02-02-2025 Erythrocyte distribution width (RBC) [Ratio] 17.5 % High 11.5-15.5 Comment on above: Performed By: #### A SYDNIE, ADIFF, GFR, CBC, BMP, KALEN #### [address] [address] Hematocrit (Bld) [Volume fraction] 31.5 % Low 34.0-46.0 Comment on above: Performed By: #### A SYDNIE, ADIFF, GFR, CBC, BMP, KALEN #### [address] [address] Hgb 10.3 G/dL Low 12.0-16.0 Comment on above: Performed By: #### A SYDNIE, ADIFF, GFR, CBC, BMP, KALEN #### [address] [address] MCH (RBC) [Entitic mass] 25.2 pg Low 27.0-33.0 Comment on above: Performed By: #### A SYDNIE, ADIFF, GFR, CBC, MORGAN, KALEN #### [address] [address] MCHC 32.7 G/dL Normal 32.0-36.0 Comment on above: Performed By: #### A SYDNIE, ADIFF, GFR, CBC, BMP, KALEN #### [address] [address] MCV (RBC) [Entitic vol] 77.2 fL Low 80.0-99.0 [facility] Comment on above: Performed By: #### A SYDNIE, ADIFF, GFR, CBC, MORGAN, KALEN #### [address] [address] Platelet 361 10 3/mcL Normal 150-450 Comment on above: Performed By: #### A SYDNIE, ADIFF, GFR, CBC, BMP, KALEN #### [address] [address] Platelet mean volume (Bld) [Entitic vol] 6.4 fL Low 6.6-10.5 Comment on above: Performed By: #### A SYDNIE, ADIFF, GFR, CBC, BMP, MDW #### [facility] [address] [place], [place] [address] RBC 4.08 10 6/mcL Low 4.10-5.30 Comment on above: Performed By: #### A SYDNIE, ADIFF, GFR, CBC, BMP, MDW #### [facility] [address] [place], [place] [address] WBC 8.4 10 3/mcL Normal 4.5-10.8 Comment on above: Performed By: #### A SYDNIE, ADIFF, GFR, CBC, BMP, MDW #### [facility] [address] [place], [place] [address] CT ABD/PELVIS W/ IV CONTRAST ONLYon 02-02-2025 CT ABD/PELVIS W/ IV CONTRAST ONLY ORIGINAL EXAMINATION: CT OF THE ABDOMEN AND PELVIS WITH CONTRAST 02/02/2025 4:38 am TECHNIQUE: CT of the abdomen and pelvis was performed with the administration of intravenous contrast. Multiplanar reformatted images are provided for review. Automated exposure control, iterative reconstruction, and/or weight based adjustment of the mA/kV was utilized to reduce the radiation dose to as low as reasonably achievable. COMPARISON: None. HISTORY: ORDERING SYSTEM PROVIDED HISTORY: Reason for Exam: pain FINDINGS: Lower Chest: No acute findings. Organs: The liver, biliary tree, pancreas, spleen, adrenal glands, and kidneys show no sign of abnormality. GI/Bowel: There is no intestinal obstruction or inflammation. The appendix is normal. There is no free intraperitoneal air or abnormal fluid collection the abdomen. Pelvis: Urinary bladder is partly distended and has a normal appearance. Uterus and adnexal structures are unremarkable. There is small amount of free fluid the pelvic cul-de-sac that is within normal limits. Peritoneum/Retroperit oneum: There is no retroperitoneal lymph node enlargement. Abdominal aorta and inferior vena cava are normal. Bones/Soft Tissues: No acute findings. IMPRESSION: No acute abdominal or pelvic abnormality. Interpreted by: Ash Martines MD Preliminary Report By: Ash Martines MD Electronically signed By Ash Martines MD Dictated Date: 02/02/2025 4:39:46 AM Prelim Date: 02/02/2025 4:43:42 AM Sign Date: 02/02/2025 4:43:42 AM Ordering Provider: ELIZABETH MIKE Normal PREGUon 02-02-2025 HCG ( test) Ql (U) Negative Normal Comment on above: Performed By: #### U AMICAO, UA, PREGU #### [place] [address] test (u) int Not detected Invalid Interpretation Code Comment on above: Performed By: #### U AMICAO, UA, PREGU #### [address] [address] UAon 02-02-2025 Color (U) Yellow Normal Comment on above: Performed By: #### U AMICAO, UA, PREGU #### [place] [address] Glucose (U) [Mass/Vol] Negative Normal Negative [facility] Comment on above: Performed By: #### U AMICAO, UA, PREGU #### [address] [address] Ketones Ql (U) Negative Normal Negative Comment on above: Performed By: #### U AMICAO, UA, PREGU #### [address] [address] UA Appear Clear Normal Clear Comment on above: Performed By: #### U AMICAO, UA, PREGU #### [address] [address] UA Blood Negative Normal Negative Comment on above: Performed By: #### U AMICAO, UA, PREGU #### [address] [address] UA Leuk Est Trace Abnormal Negative Comment on above: Performed By: #### U AMICAO, UA, PREGU #### [place] [address] UA Nitrite Negative Normal Negative Comment on above: Performed By: #### U AMICAO, UA, PREGU #### [place] [address] UA pH 6.0 Normal 5.0 - 8.0 Comment on above: Performed By: #### U AMICAO, UA, PREGU #### [place] [address] UA Protein Trace Normal Negative Comment on above: Performed By: #### U AMICAO, UA, PREGU #### [place] [address] UA Spec Grav >=1.030 Abnormal 1.015-1.025 Comment on above: Performed By: #### U AMICAO, UA, PREGU #### [place] [address] UA Specimen Type Not Given Normal Comment on above: Performed By: #### U AMICAO, UA, PREGU #### [place] [address] UA Urobilinogen 0.2 E.U./dL Normal 0.2-1.0 Comment on above: Performed By: #### U AMICAO, UA, PREGU #### [place] [address] Urobilinogen (U) [Mass/Vol] Negative Normal Negative Comment on above: Performed By: #### U AMICAO, UA, PREGU #### [place] [address] ALLIED HEALTHon 03-09-2024 [facility] HNO ID: [id number] Author: YESSICA HANNON RT(R) Service: ? Author Type: Technologist Type: Allied Health Filed: 03/09/2024 16:24 Note Text: Radiology Service Progress Note PATIENT NAME: Mattie Rodriguez DATE OF SERVICE: March 09, 2024 TIME: 4:23 PM PATIENT IDENTITY VERIFICATION COMPLETED USING TWO (2) IDENTIFIERS: Name and Date of confirmed by patient verbally. FALL SCREENING: Has the patient had 2 falls in the last year or 1 fall with injury or currently using an Ambulatory Assistive Device (Walker, Cane, Wheelchair, Crutches, etc.)? Emergency Room Patient: Screened in ED PATIENT GENDER DATA: Female. status: : No status: NO. PATIENT RELEVANT IMPLANT DATA REVIEWED: Not Applicable PATIENT PRESENTS WITH AN IMPLANTABLE OR ATTACHED SUPERVISOR TRAIN OPERATIONS: No RADIOLOGY DEPARTMENT: General X-ray: Exam(s) Completed: Spine X-Ray(s): Lumbar AP / LAT / L5-S1 PERIPHERAL IV DATA: Not applicable SIGNED BY: RT Kevin(R) March 09, 2024 4:[address] [facility] ED NOTEon 03-09-2024 ED NOTE HNO ID: [id number] Author: CANDIDA LEE RN Service: ? Author Type: Registered Nurse Type: ED Notes Filed: 03/09/2024 17:12 Note Text: Pt given discharge instructions, pt questions answered and pt denies any further questions at time of discharge. Pt ambulates out of dept with a steady gait. 3 rx sent to pharmacy Pt has a ride home Work note given [facility] ED NOTE HNO ID: [id number] Author: CANDIDA LEE RN Service: ? Author Type: Registered Nurse Type: ED Notes Filed: 03/09/2024 14:51 Note Text: Patient informed: the name of medication, why we are giving it, possible side effects, what they may expect to feel, and was offered a chance to ask questions, prior to the administration of toradol Normal [facility] ED NOTE HNO ID: [id number] Author: CANDIDA LEE RN Service: ? Author Type: Registered Nurse Type: ED Notes Filed: 03/09/2024 14:40 Note Text: Dr sands at bedside for exam Normal [facility] ED NOTE HNO ID: [id number] Author: CANDIDA LEE RN Service: ? Author Type: Registered Nurse Type: ED Notes Filed: 03/09/2024 14:35 Note Text: Pt c/o lower back pain, worse on left side. Pain radiates down left leg. No known injury, pt woke up with pain a few days ago Normal [facility] ED PROV NOTEon 03-09-2024 ED PROV NOTE HNO ID: [id number] Author: GRECIA SANDS MD Service: Emergency Medicine Author Type: Physician Type: ED Provider Notes Filed: 03/09/2024 16:47 Note Text: ED Provider Note Patient Name: Mattie Rodriguez : 2005 SERVICE DATE: 03/09/24 History Patient presents with: Back Pain Mattie Rodriguez is a 19 year old female with history of no chronic medical problems who presents with lower back pain no known injury . Patient is without red flags. - Symptoms began 3 days prior to arrival. Onset was gradual. - Severity: moderate - Timing: constant - Quality: dull - Pain is exacerbated by movement. Pain radiates to left thigh. - Pain is not exacerbated by deep breath. - Symptoms are associated with sciatica. - Symptoms are not associated with bowel/bladder incontinence, chills, and fever. - Improved by nothing. 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 Gradual onset pain lumbar back rating down the left leg. History of abnormal UA about a month or 2 ago she said she had white cells and red cells in her urine. Normal menses last period 3 weeks ago. History reviewed. No pertinent past medical history. History reviewed. No pertinent surgical history. No family history on file. Social History Tobacco Use - Smoking status: Every Day Types: Cigarettes - Smokeless tobacco: Never Vaping Use - Vaping Use: current everyday user Substance and Sexual Activity - Alcohol use: Yes Comment: socially - Drug use: Yes Types: Marijuana Comment: daily - Sexual activity: Not on file ALLERGIES No Known Allergies Review of Systems Constitutional: Negative for chills and fever. Gastrointestinal: Positive for nausea. Negative for abdominal pain and vomiting. Genitourinary: Negative for dysuria, flank pain, frequency, menstrual problem, vaginal bleeding and vaginal discharge. Musculoskeletal: Positive for back pain. Negative for myalgias. Allergic/Immunologic: Negative for environmental allergies, food allergies and immunocompromised state. Physical Exam Vitals [03/09/24 1435] BP Pulse Temp Temp src Resp SpO2 Weight Height 134/86 66 (!) 35.9 ?C (96.6 ?F) Temporal Art 18 98 % 68 kg (150 lb) 1.651 m (5' 5) Physical Exam Vitals and nursing note reviewed. Constitutional: General: She is not in acute distress. Appearance: Normal appearance. She is not ill-appearing, toxic-appearing or diaphoretic. HENT: Head: Normocephalic and atraumatic. Pulmonary: Effort: Pulmonary effort is normal. No respiratory distress. Musculoskeletal: General: Tenderness present. No swelling. Comments: Bilateral LS junction tenderness with decreased range of motion secondary to discomfort. Straight leg examination positive on the left side Skin: General: Skin is warm and dry. Capillary Refill: Capillary refill takes less than 2 seconds. Findings: No rash. Neurological: General: No focal deficit present. Mental Status: She is alert and oriented to person, place, and time. Motor: No weakness. Gait: Gait normal. Deep Tendon Reflexes: Reflexes normal. Diagnostic Testing ED Labs Ordered and Reviewed - No data to display Procedures ED Course / Clinical Impression Clinical Impressions as of 03/09/24 1647 Lumbar back pain with radiculopathy affecting left lower extremity MDM / Disposition / Plan No acute abnormalities on urinalysis there is a little bit of contamination but no signs of any pyelonephritis. Patient does not appear clinically ill and pain does seem mostly mechanical she was given Toradol but did not have adequate pain relief so I gave her an additional p.o. Percocet and did check plain film x-ray. No acute abnormalities on x-ray she did develop some nausea with the pain medication so given Zofran. Recommend primary care follow-up she may benefit from physical therapy may need further evaluation. No indication for transfer or admission Differential Diagnoses - Lumbar back pain with radiculitis is more likely for the following reason(s): suggested by HANDP -Herpes Zoster Less likely because:no rash on exam Additional complaint based differentials considered: herpes zoster Management Radiology Reports XR LUMBAR GENERAL 3V AP/LAT/L5-S1 Final Result IMPRESSION: No radiographic evidence of acute osseous abnormalities. If symptom persists and further imaging evaluation is clinically warranted, follow-up MRI lumbar spine may be obtained. Financial Compliance Officer: ERIC Transcribe Date/Time: Mar 09 2024 4:24P Dictated by : JIN HARDWICK MD This examination was interpreted and the report reviewed and electronically signed by: JIN HARDWICK MD on Mar 09 2024 4:27PM EST Meds Given During Visit ED Medication Administration from 03/09/2024 1429 to 03/09/2024 1644 Date/Time Order Dose Route Action 03/09/2024 1450 EDT keTORolac 30 mg injection (Toradol) 30 mg INTRAMUSCULAR Give (more content not included)... Normal [facility] HCG Preg Ur Qlon 03-09-2024 HCG ( test) Ql (U) Negative Normal Negative [facility] Comment on above: Order Comment: Speci krish Type: URINE SPECIMEN Ordering Facility: [facility] Address: [address] [place], [place] [id number] Result Comment: This test is intended to aid in the early detection of . Very dilute urine samples, as indicated by a low specific gravity, may not contain used equipment sales representative levels of hCG. This test detects intact hCG only. This test does not reliably detect hCG degradation products, including free-beta subunit and beta-core fragment. Therefore, this test may show reduced reactivity in urine after 8 weeks gestation. A number of conditions other than , including trophoblastic disease and certain non-trophoblastic neoplasms cause elevated levels of hCG. As with any assay employing mouse antibodies, the possibility exists for interference by human anti-mouse antibodies (HAMA) in the specimen. The test provides a presumptive diagnosis for . Performed By: #### 2 106-3 #### [facility] CLIA [id number] [address] [place] [address] [place] Urinalysis complete panel (U )on 03-09-2024 Bacteria LM.HPF (Urine sed) [#/Area] Few Abnormal None Seen [facility] Comment on above: Order Comment: Sandra rutherford Type: URINE SPECIMEN Ordering Facility: [facility] Address: [address] [place], [place] [id number] Result Comment: Inte rpret results with caution, urine volume is less than optimal. Performed By: #### 2 4356-8 #### [facility] CLIA [id number] [address] [place] [address] [place] Bilirubin Ql (U) Negative Normal Negative [facility] Comment on above: Order Comment: Sandra rutherford Type: URINE SPECIMEN Ordering Facility: [facility] Address: [address] [place] [address] Result Comment: Inte rpret results with caution, urine volume is less than optimal. Performed By: #### 2 4356-8 #### [facility] CLIA [id number] [address] [place] [address] [facility] Clarity (Unsp spec) Slightly Cloudy Abnormal Clear [facility] Comment on above: Order Comment: Speci men Type: URINE SPECIMEN Ordering Facility: [facility] Address: [address] [place] [address] Result Comment: Inte rpret results with caution, urine volume is less than optimal. Performed By: #### 2 4356-8 #### [facility] CLIA [id number] [address] [place] [address] [facility] Color (U) Yellow Normal Yellow [facility] Comment on above: Order Comment: Speci men Type: URINE SPECIMEN Ordering Facility: [facility] Address: [address] [place] [address] Result Comment: Inte rpret results with caution, urine volume is less than optimal. Performed By: #### 2 4356-8 #### [facility] CLIA [id number] [address] [place] [address] [facility] Epithelial cells LM.HPF (Urine sed) [#/Area] Few Normal [facility] Comment on above: Order Comment: Speci men Type: URINE SPECIMEN Ordering Facility: [facility] Address: [address] [place] [address] Result Comment: Inte rpret results with caution, urine volume is less than optimal. Performed By: #### 2 4356-8 #### [facility] CLIA [id number] [address] [place] [address] [place] Glucose Test strip (U) [Mass/Vol] Negative Normal Negative [facility] Comment on above: Order Comment: Speci men Type: URINE SPECIMEN Ordering Facility: [facility] Address: [address] [place] [address] Result Comment: Inte rpret results with caution, urine volume is less than optimal. Performed By: #### 2 4356-8 #### [facility] CLIA [id number] [address] [place] [address] [facility] Hemoglobin Ql (U) Negative Normal Negative [facility] Comment on above: Order Comment: Speci men Type: URINE SPECIMEN Ordering Facility: [facility] Address: [address] [place] [address] Result Comment: Inte rpret results with caution, urine volume is less than optimal. Performed By: #### 2 4356-8 #### [facility] CLIA [id number] [address] [place] [address] [facility] [place] Ketones Ql (U) Negative Normal Negative [facility] Comment on above: Order Comment: Speci men Type: URINE SPECIMEN Ordering Facility: [facility] Address: [address] [place] [address] Result Comment: Inte rpret results with caution, urine volume is less than optimal. Performed By: #### 2 4356-8 #### [facility] CLIA [id number] [address] [place] [address] [facility] Leukocyte esterase Test strip Ql (U) Negative Normal Negative [facility] Comment on above: Order Comment: Speci men Type: URINE SPECIMEN Ordering Facility: [facility] Address: [address] [place] [address] Result Comment: Inte rpret results with caution, urine volume is less than optimal. Performed By: #### 2 4356-8 #### [facility] CLIA [id number] [address] [place] [address] [place] Nitrite Ql (U) Negative Normal Negative [facility] Comment on above: Order Comment: Speci men Type: URINE SPECIMEN Ordering Facility: [facility] Address: [address] [place] [address] Result Comment: Inte rpret results with caution, urine volume is less than optimal. Performed By: #### 2 4356-8 #### [facility] CLIA [id number] [address] [place] [address] [place] pH (U) 7.0 [pH] Normal 5.0-8.0 [facility] Comment on above: Order Comment: Speci men Type: URINE SPECIMEN Ordering Facility: [facility] Address: [address] [place] [address] Result Comment: Inte rpret results with caution, urine volume is less than optimal. Performed By: #### 2 4356-8 #### [facility] CLIA [id number] [address] [place] [address] STATES [facility] Protein (U) [Mass/Vol] Trace Abnormal Negative [facility] Comment on above: Order Comment: Speci men Type: URINE SPECIMEN Ordering [facility]: [facility] Address: [address] [place] [address] Result Comment: Inte rpret results with caution, urine volume is less than optimal. Performed By: #### 2 4356-8 #### [facility] CLIA [id number] [address] [place] [address] [place] [facility] RBC LM.HPF (Urine sed) [#/Area] 0-3 /HPF Normal 0-3 /HPF [facility] Comment on above: Order Comment: Speci men Type: URINE SPECIMEN Ordering [facility]: [facility] Address: [address] [place] [address] Result Comment: Inte rpret results with caution, urine volume is less than optimal. Performed By: #### 2 4356-8 #### [facility] CLIA [id number] [address] [place] [address] STATES [facility] Specific gravity (U) [Rel density] 1.025 Normal 1.005-1.030 [facility] Comment on above: Order Comment: Speci men Type: URINE SPECIMEN Ordering [facility]: [facility] Address: [address] [place] [address] Result Comment: Inte rpret results with caution, urine volume is less than optimal. Performed By: #### 2 4356-8 #### [facility] CLIA [id number] [address] [place] [address] [facility] Urobilinogen Ql (U) 1.0 EU/dL Normal 0.2-1.0 EU/dL [facility] Comment on above: Order Comment: Speci men Type: URINE SPECIMEN Ordering Facility: [facility] Address: [address] [place] [address] Result Comment: Inte rpret results with caution, urine volume is less than optimal. Performed By: #### 2 4356-8 #### [facility] CLIA [id number] [address] [place] [address] WBC LM.HPF (Urine sed) [#/Area] 6-10 /HPF Abnormal 0-5 /HPF [facility] Comment on above: Order Comment: Speci men Type: URINE SPECIMEN Ordering [facility]: [facility] Address: [address] [place] [address] Result Comment: Inte rpret results with caution, urine volume is less than optimal. Performed By: #### 2 4356-8 #### [facility] CLIA [id number] [address] [place] [address] XR LUMBAR 3V AP/LAT/L5-S1on 03-09-2024 XR LUMBAR 3V AP/LAT/L5-S1 * * *Final Report* * * DATE OF EXAM: Mar 09 2024 4:22PM LDX 5228 - XR LUMBAR 3V AP/LAT/L5-S1 / PROCEDURE REASON: Back pain * * * * Physician Interpretation * * * * EXAMINATION: XR LUMBAR 3V AP/LAT/L5-S1 Clinical History: Back pain Comparison: None RESULT: The lumbar vertebral body heights are within normal limits. No evidence of significant spondylolisthesis. Unremarkable radiographic appearance of the sacroiliac joints. IMPRESSION: No radiographic evidence of acute osseous abnormalities. If symptom persists and further imaging evaluation is clinically warranted, follow-up MRI lumbar spine may be obtained. Financial Compliance Officer: PSCB Transcribe Date/Time: Mar 09 2024 4:24P Dictated by : JIN HARDWICK MD This examination was interpreted and the report reviewed and electronically signed by: JIN HARDWICK MD on Mar 09 2024 4:27PM EST [id number] Normal [facility] ED Nursing Noteon 02-01-2023 ED Nursing Note Pt arrived to ED wit h family member. Pt reports having a food bolus of mac and cheese and peterson bits stuck in throat since 2230. Pt vomited one time around 2300 but it did not relieve the symptoms. Pt able to speak in full sentences throughout triage and answer questions appropriately. Normal [facility] ED Provider Noteon ED Provider Note EMERGENCY DEPARTMENT ENCOUNTER Pt Name: Mattie Rodriguez Birthdate 2005 Date of evaluation: 01/31/2023 ED Provider: Waldo Miguel DO CHIEF COMPLAINT Chief Complaint Patient presents with Food Bolus in Throat Food Bolus Stuck in Throat: Pt eating mac and cheese with peterson bits; food bolus stuck around 2230 tonight. HISTORY OF PRESENT ILLNESS (Location/Symptom, Timing/Onset, Context/Setting, Quality, Duration, Modifying Factors, Severity) Note limiting factors. I wore appropriate PPE for the entirety of this encounter. HPI Mattie Rodriguez is a 18 y.o. female who presents to the emergency department concerned that she has macaroni and cheese stuck in her esophagus. States she was eating dinner around 10 PM when she felt sensation of foreign body in her esophagus. States is a upper mid chest discomfort. States she vomited once. Has never had this happen before. No history of gastritis or reflux disease. Nursing Notes were reviewed. REVIEW OF SYSTEMS 14 systems reviewed and otherwise acutely negative except as in the [place]. PAST MEDICAL HISTORY Past Medical History: Diagnosis Date ADHD Anxiety Depression Ovarian cyst SURGICAL HISTORY No past surgical history on file. CURRENT MEDICATIONS Discharge Medication List as of 02/01/2023 2:03 AM ALLERGIES Patient has no known allergies. FAMILY HISTORY No family history on file. SOCIAL HISTORY Social History Socioeconomic History Marital status: Single Tobacco Use Smoking status: Every Day Smokeless tobacco: Never Substance and Sexual Activity Alcohol use: Yes Drug use: Yes Types: Marijuana SCREENINGS Marifer Coma Scale Best Eye Response: Spontaneous Best Verbal Response: Oriented Best Motor Response: Follows commands Blanchard Coma Scale Score: 15 PHYSICAL EXAM ED Triage Vitals [01/31/23 2317] Temp Heart Rate Resp BP 36.8 ?C (98.2 ?F) 79 16 (!) 154/93 SpO2 Temp Source Heart Rate Source Patient Position 100 % Temporal Monitor -- BP Location FiO2 (%) -- -- CONSTITUTIONAL: AOx4, no apparent distress, appears stated age HEAD: normocephalic, atraumatic EYES: PERRL, EOMI ENT: moist mucous membranes, uvula midline NECK: supple, symmetric BACK: symmetric LUNGS: clear to auscultation bilaterally CARDIOVASCULAR: regular rate and rhythm, no murmurs, rubs or gallops ABDOMEN: soft, non-tender, non-distended with normal active bowel sounds : deferred NEUROLOGIC: MAEx4, no focal sensory or motor deficits MUSCULOSKELETAL: no clubbing, cyanosis or edema SKIN: no exposed rash DIAGNOSTIC RESULTS Procedures/EKG: EKG was reviewed by myself. Physician EKG interpretation can be found in [facility] RADIOLOGY (Per Emergency Physician): Interpretation per the Radiologist below, if available at the time of this note: No orders to display ED BEDSIDE ULTRASOUND: Performed by ED Physician - none LABS: Labs Reviewed - No data to display All other labs were within normal range or not returned as of this dictation. EMERGENCY DEPARTMENT COURSE and DIFFERENTIAL DIAGNOSIS/MDM: Vitals: Vitals: 01/31/23 2317 BP: (!) 154/93 Pulse: 79 Resp: 16 Temp: 36.8 ?C (98.2 ?F) TempSrc: Temporal SpO2: 100% Weight: 77.1 kg (170 lb) EMERGENCY DEPARTMENT COURSE and DIFFERENTIAL DIAGNOSIS/MDM: Vitals: Vitals: 01/31/23 2317 BP: (!) 154/93 Pulse: 79 Resp: 16 Temp: 36.8 ?C (98.2 ?F) TempSrc: Temporal SpO2: 100% Weight: 77.1 kg (170 lb) The patient presented with a chief complaint of concern for impacted food bolus, was eating macaroni and cheese prior to arrival. Patient vomited once. The differential diagnosis associated with this patient's presentation includes gastritis, gastroenteritis, impacted food bolus. Our workup consisted of ordering/reviewing IV glucagon was administered. Approximately 30 minutes later, the patient was given a carbonated beverage. Patient is tolerating a carbonated beverage however still has the same discomfort in her upper chest. We will continue to assess.. Patient was able to tolerate the full can of eliezer warner for which she states it feels like she was able to pass the full bolus in her stomach. Has no further sensation of stuck food. Patient has no history of GERD or gastritis or esophagitis. Start the patient on Pepcid. Recommend outpatient PCP and GI follow-up. All questions answered but okay to be discharged. Diagnoses as of 02/01/23 0235 Food impaction of esophagus, initial encounter Diagnostic tests considered but not performed: External records reviewed: Diagnostics interpreted by me: Discussions with other clinicians: Chronic conditions impacting care: Social determinants of health affecting care: ED Medications managed: Medications glucagon (human recombinant) injection 1 mg (1 mg IntraVENous Given 02/01/23 0029) aluminum & magnesium hydroxide-simethicone (Mylanta) 200-200-20 MG/5ML oral suspension 10 mL (10 mL O (more content not included)... [facility] MTATIE RODRIGUEZ ([id number]) 1 F Date Time Provider Department 06/27/22 AMOS WRIGHT During your visit today, we recorded the following information about you: Amos Wright PA-C 06/27/2022 7:23 AM Signed Please call the patient and inform them that- Please be aware that your COVID-19 and influenza test is negative. Please continue the plan of care as discussed at your clinic visit. Follow up with your primary care physician for any new or persisting fever or worsening or changing symptoms. Please refrain from work/school and isolate yourself until - -At least 24 hours have passed since last fever without the use of fever-reducing medications SCARLETT Flores Ma 06/27/2022 7:37 AM Signed Attempted to reach the patient your call did not got through, please try your call again. If patient calls in please read providers message and update contact information. Amos Wright PA-C 06/27/2022 8:01 AM Signed Letter sent. Amos Wright PA-C Allergies As of Date: 06/27/2022 (No Known Allergies) Date Reviewed: 06/26/2022 Reviewed by: Marge Higgins APRN.CNP - Fully Assessed Reason for Visit: Results [95] Prescriptions as of 06/27/2022 - fluticasone (FLONASE ALLERGY RELIEF) 50 mcg/actuation nasal spray Use 1 Golden in each nostril twice daily. - methylPREDNISolone (MEDROL DOSE-PACK) 4 mg Dose-Pack As Instructed per package - dextromethorphan-guai FENesin (MUCINEX DM) 30-600 mg per tablet Take 1 tablet by mouth twice daily for 7 days. - ergocalciferol 50,000 unit capsule (VITAMIN D2, DRISDOL) Take 1 capsule by mouth one time a week. Use as directed. Problem List As Of Date: 06/27/2022 (None) Letter Text Encounter Status:Closed by AMOS WRIGHT on 06/27/22 [facility] Chidi 06-26-2022 [facility] Office Visit (RONNY ) MATTIE RODRIGUEZ ([id number]) 1 F Date Time Provider Department 06/26/22 10:50 AM MARGE HIGGINS During your visit today, we recorded the following information about you: Temperature Pulse Blood pressure Weight 97.4 degrees 68/minute 114/70 83.9 kg Height 1.676 m Marge Higgins APRN.CNP 06/26/2022 11:15 AM Signed This note was created using [employer]. Subjective Mattie Rodriguez is a 17 year old female. HPI by patient: Mattie Rodriguez is a 17 year old female presenting to the office with the complaint of viral symptoms. Started approximately 3 days ago, Saturday. Associated symptoms include sore throat, cough, headache, feeling warm with chills, sinus congestion, fatigue, body aches, and nausea. Denies vomiting, diarrhea, and shortness of breath. Vaccinated for influenza: unsure. Covid Immunization Dates Postponed - COVID-19 VACCINE (1) Postponed until 05/04/2023 05/04/2022 Postponed until 05/04/2023 by Kenneth Salazar PA-C (Declined at this time) Personal history of Covid: unsure. Flu/RSV contacts: none. Strep contacts: none. Sick contacts: none. Covid + contacts: none. Travel in the last 14 days: none. Smoking history/second hand smoke: none. OTC ibuprofen. No antibiotic use in the last 60 days. ALLERGIES No Known Allergies No family history on file. Social History Tobacco Use Smoking status: Never Smokeless tobacco: Never Vaping Use Vaping Use: current everyday user Alcohol use: Yes Comment: socially Drug use: Yes Types: Marijuana Comment: daily Active Ambulatory Problems No Active Ambulatory Problems Resolved Ambulatory Problems No Resolved Ambulatory Problems No Additional Past Medical History Review of Systems Constitutional: Positive for chills and fatigue. Fever: felt warm. HENT: Positive for congestion and sore throat. Negative for ear pain. Eyes: Negative. Respiratory: Positive for cough. Cardiovascular: Negative. Gastrointestinal: Positive for nausea. Negative for diarrhea and vomiting. Endocrine: Negative. Genitourinary: Negative. Musculoskeletal: Negative. Skin: Negative. Neurological: Positive for headaches. Hematological: Negative. Objective BP 114/70 Pulse 68 Temp 36.3 ?C (97.4 ?F) (Temporal) Ht 167.6 cm (5' 5.98) Wt 83.9 kg (185 lb) LMP 05/13/2022 BMI 29.87 kg/m? Physical Exam Vitals reviewed. Constitutional: General: She is not in acute distress. Appearance: She is not ill-appearing, toxic-appearing or diaphoretic. HENT: Head: Normocephalic and atraumatic. Right Ear: Tympanic membrane, ear canal and external ear normal. Left Ear: Tympanic membrane, ear canal and external ear normal. Nose: Rhinorrhea present. Right Sinus: No maxillary sinus tenderness or frontal sinus tenderness. Left Sinus: No maxillary sinus tenderness or frontal sinus tenderness. Mouth/Throat: Mouth: Mucous membranes are moist. Pharynx: Oropharynx is clear. No oropharyngeal exudate or posterior oropharyngeal erythema. Cardiovascular: Rate and Rhythm: Normal rate and regular rhythm. Pulmonary: Effort: Pulmonary effort is normal. Breath sounds: Normal breath sounds. Lymphadenopathy: Head: Right side of head: No submandibular or tonsillar adenopathy. Left side of head: No submandibular or tonsillar adenopathy. Cervical: Cervical adenopathy present. Right cervical: Superficial cervical adenopathy present. Left cervical: Superficial cervical adenopathy present. Psychiatric: Behavior: Behavior is cooperative. Assessment and Plan (J06.9) Viral URI with cough (primary encounter diagnosis) Plan: COVID WITH FLUA+B, ROUTINE, Brompheniramine-Pseud oeph-DM (BROMFED DM) 2-30-10 mg/5 mL syrup, fluticasone (FLONASE ALLERGY RELIEF) 50 mcg/actuation nasal spray (J02.9) Pharyngitis, unspecified etiology Plan: COVID WITH FLUA+B, ROUTINE, Brompheniramine-Pseud oeph-DM (BROMFED DM) 2-30-10 mg/5 mL syrup, fluticasone (FLONASE ALLERGY RELIEF) 50 mcg/actuation nasal spray (R51.9) Headache, unspecified headache type Plan: COVID WITH FLUA+B, ROUTINE, methylPREDNISolone (MEDROL DOSE-PACK) 4 mg Dose-Pack Education on viral vs bacterial infections. Most viral infections will last 10 days, sometimes 14. It is possible to have back to back viral infections. An antibiotic will not treat a virus. -Negative strep culture in office. -Covid test for rule out, results in 48 hours, isolation in the interim. Result to mychart. -Drink lots of fluids and get plenty of rest. Gargle with salt water 3 times/day. -Vaporizers, cool mist humidifiers, warm showers, and warm fluids help open respiratory and sinus passages. Clean humidifiers daily. -OTC tylenol as directed on the bottle. Medrol dose for migraine/headache. No ibuprofen or other nsaids, like Excedrin, while taking steroids. -Saline nasal spray as neede (more content not included)... Normal [facility] Influenza virus A and B RNA and SARS-CoV-2 (COVID-19) N gene panel HYUN+probe (Resp)on 06-26-2022 FLUAV RNA HYUN+probe Ql (Unsp spec) Negative Normal Negative for Influenza A by RT-PCR [facility] Comment on above: Order Comment: Sandra rutherford Type: BLOOD SPECIMEN [facility] Address: [address] [place] [address] Performed By: #### 2 4331-1, 2132-06, 81906-4 #### [facility] CLIA [id number] [address] [place] [address] [place] FLUBV RNA HYUN+probe Ql (Unsp spec) Negative Normal Negative for Influenza B by RT-PCR [facility] Comment on above: Order Comment: Speci krish Type: BLOOD SPECIMEN [facility] Address: [address] [place] [address] Performed By: #### 2 4331-1, 2132-06, #### [facility] CLIA [id number] [address] [place] [address] [place] SARS-CoV-2 (COVID-19) RNA HYUN+probe Ql (Resp) SARS-CoV-2 (Agent of COVID-19) Not Detected by RT-PCR or equivalent method. Normal Not Detected [facility] Comment on above: Order Comment: Sandra rutherford Type: BLOOD SPECIMEN [facility] Address: [address] [place] [address] Result Comment: maylin s [id number] [employer] (AVRIL)_EUA This test was developed and its performance characteristics determined by [facility] [place]. This test has been authorized by FDA under an Emergency Use Authorization (EUA). This test has been validated in accordance with the FDA's Guidance Document Policy for Diagnostics Testing in Laboratories Certified to Perform High Complexity Testing under CLIA prior to Emergency use Authorization for Coronavirus Disease 2019 during the Public Health Emergency issued on December 26, 2019. Test performed by [facility], [facility] [place], [address] [place] [address]. Performed By: #### 2 4331-1, 2132-06, 74214-9 #### [facility] CLIA [id number] [address] [place] [address] [place] [address] [place] STREP A MOLECULAR (POC)on Procedural Control Valid [facility] Strep A (POCT) Negative Negative [facility] Progress Noteon 06-20-2022 [employer] Authentication Interface Message Text Patient ID: Mattie Rodriguez is a 17 y.o. female. Her chief complaint(s) include: ADHD Follow-up Assessment 1. Anxiety 2. Attention deficit hyperactivity disorder (ADHD), predominantly inattentive type Plan Mattie was seen today for adhd follow-up. Diagnoses and all orders for this visit: Anxiety - hydrOXYzine (ATARAX) 10 MG tablet; Take 1 Tablet (10 mg) by mouth every 6 hours as needed for Itching for up to 30 days - escitalopram (LEXAPRO) 20 MG tablet; Take 1 Tablet (20 mg) by mouth daily for 30 days Attention deficit hyperactivity disorder (ADHD), predominantly inattentive type - continue Adderall 20 XR in AM, with Adderall 10 mg (not XR) in the afternoon Discussed substance abuse issues and patient's increased risk based on genetics. Recheck in 4-6 months. Discussed transitioning to adult MD when graduates high school in the spring No follow-ups on file. Subjective HPI Comments: Here for ADD and anxiety recheck. 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 Feels like meds are working well. Went through a stretch of living away from home and drinking alcohol daily for a month. Has moved back home and is staying sober. Pt reports feeling much better now than during her drinking days. Pt aware that her biologic dad is an alcoholic and that substance abuse seems to have a genetic component. She is accompanied by her mother. Independent history obtained from mother. ADHD Follow-upSide effects have included decreased appetite. The patient is in 12th grade. Her school performance includes: adjusting adequately. Primary Care Review of Systems Objective Vital Signs 06/20/22 1802 BP: 124/66 Pulse: 88 Resp: 20 Weight: 75.8 kg There is no height or weight on file to calculate BMI. Physical Exam Constitutional: She appears well. She is active. No distress. HENT: Head: Atraumatic. Ears: Right Ear: Tympanic membrane normal. Left Ear: Tympanic membrane normal. Mouth/Throat: Mucous membranes are moist. Eyes: Conjunctivae are normal. Neck: Neck supple. Thyroid normal. Cardiovascular: Normal rate and regular rhythm. Heart murmur not heard. Pulmonary/Chest: Breath sounds normal. There is normal air entry. Musculoskeletal: Cervical back: Neck supple. Neurological: She is alert. She has normal strength. She exhibits normal muscle tone. Gait normal. Vitals reviewed: Blood pressure 124/66, pulse 88, resp. rate 20, weight 75.8 kg. Normal [facility] 05-10-2022 CNPN Telephone ([place]) MATTIE RODRIGUEZ ([id number]) 1 F Date Time Provider Department 05/10/22 KENNETH SALAZAR During your visit today, we recorded the following information about you: Kenneth Salazar PA-C 05/10/2022 8:11 AM Signed ----- Message from Kenneth Salazar PA-C sent at 05/07/2022 8:03 AM EDT ----- Let patient know: Vitamin D is somewhat low, will send supplement to pharmacy. Hepatitis C antibody was positive, but confirmation test was negative. This means she was exposed to the hepatitis C virus, but must have cleared the virus naturally. She DOES NOT currently have hepatitis C. HIV negative. B12 is fine. A1C (3 month glucose average) is good. CBC/CMP are good. HDL (good cholesterol) is a little low. This can be helped with exercise, smoking cessation, and healthy weight loss. Keep appointment with Dr. Carlson for follow-up. Kayli August 05/10/2022 8:22 AM Signed Left message for patient to return call. Kayli Padron RN 05/10/2022 1:59 PM Signed Patient notified of results and provider's instructions. Patient verbalizes understanding. Anay Padron RN Allergies As of Date: 05/10/2022 (No Known Allergies) Date Reviewed: 05/04/2022 Reviewed by: Kenneth Salazar PA-C - Fully Assessed Reason for Visit: Results [95] Prescriptions as of 05/10/2022 - ergocalciferol 50,000 unit capsule (VITAMIN D2, DRISDOL) Take 1 capsule by mouth one time a week. Use as directed. Problem List As Of Date: 05/10/2022 (None) Encounter Status:Closed by KENNETH SALAZAR on 05/10/22 Normal [facility] CR Spine Cervical 2 or 3 Shirae issa 05-06-2022 CR Spine Cervical 2 or 3 Views Patient Name: MATTIE RODRIGUEZ Diagnostic Radiology ACCESSION EXAM DATE/TIME PROCEDURE ORDERING PROVIDER [id number] 05/06/2022 18:05 EDT CR Spine Cervical 2 or 3 MD GENO, PIETRO Views CPT code 94291 Reason For Exam (CR Spine Cervical 2 or 3 Views) Injury Report CERVICAL SPINE SERIES CLINICAL INDICATION: Neck pain AP, lateral, and odontoid views of the cervical spine were obtained. COMPARISON: None. FINDINGS: The alignment of the cervical spine is normal. Straightening of the normal cervical lordosis is noted. No fractures are seen. There is no prevertebral soft tissue swelling. The dens and lateral masses of the C1 vertebral body appear normal on the odontoid view. IMPRESSION: No evidence of fracture or dislocation of the cervical spine. Report Dictated on Final Dictating Physician: MD FRIEND JONATHAN R Signed Date and Time: 05/06/2022 7:04 pm Signed by: MD FRIEND JONATHAN R Transcribed Date and Time: 05/06/2022 7:05 Normal [facility] CR Wrist Complete 3 Views Ri chica 05-06-2022 CR Wrist Complete 3 Views Right Patient Name: MATTIE RODRIGUEZ Diagnostic Radiology ACCESSION EXAM DATE/TIME PROCEDURE ORDERING PROVIDER [id number] 05/06/2022 18:05 EDT CR Wrist Complete 3 MD OLEARY JESSE Views Right CPT code 33365 Reason For Exam (CR Wrist Complete 3 Views Right) Injury Report RIGHT WRIST CLINICAL INDICATION: Pain AP, lateral, and oblique plain film views of the right wrist were obtained. COMPARISON: 08/29/2017 FINDINGS: No fracture or dislocation of the right wrist is identified. There is no abnormal soft tissue swelling or radiopaque foreign body seen. IMPRESSION: No fracture or dislocation of the right wrist is identified. Report Dictated on Final Dictating Physician: MD FRIEND JONATHAN R Signed Date and Time: 05/06/2022 6:15 pm Signed by: MD FRIEND JONATHAN R Transcribed Date and Time: 05/06/2022 6:17 Normal [facility] No Panel Informationon 05-06 Radiology Study observation (narrative) [facility] Work Phone: XR CERVICAL SPINE (2-3 VIEWS )on 05-06-2022 Patient Name: MATTIE RODRIGUEZ Diagnostic Radiology ACCESSION EXAM DATE/TIME PROCEDURE ORDERING PROVIDER [id number] 05/06/2022 18:05 EDT CR Spine Cervical 2 or 3 MD OLEARY JESSE Views CPT code 28264 Reason For Exam (CR Spine Cervical 2 or 3 Views) Injury Report CERVICAL SPINE SERIES CLINICAL INDICATION: Neck pain AP, lateral, and odontoid views of the cervical spine were obtained. COMPARISON: None. FINDINGS: The alignment of the cervical spine is normal. Straightening of the normal cervical lordosis is noted. No fractures are seen. There is no prevertebral soft tissue swelling. The dens and lateral masses of the C1 vertebral body appear normal on the odontoid view. IMPRESSION: No evidence of fracture or dislocation of the cervical spine. Report Dictated on --- Final --- Dictating Physician: MD FRIEND JONATHAN R Signed Date and Time: 05/06/2022 7:04 pm Signed by: MD FRIEND JONATHAN R Transcribed Date and Time: 05/06/2022 7:05 [facility] Benjamin Friend MD - 05/06/2022 Patient Name: MATTIE RODRIGUEZ Diagnostic Radiology ACCESSION EXAM DATE/TIME PROCEDURE ORDERING PROVIDER [id number] 05/06/2022 18:05 EDT CR Spine Cervical 2 or 3 MD OLEARY JESSE Views CPT code 38744 Reason For Exam (CR Spine Cervical 2 or 3 Views) Injury Report CERVICAL SPINE SERIES CLINICAL INDICATION: Neck pain AP, lateral, and odontoid views of the cervical spine were obtained. COMPARISON: None. FINDINGS: The alignment of the cervical spine is normal. Straightening of the normal cervical lordosis is noted. No fractures are seen. There is no prevertebral soft tissue swelling. The dens and lateral masses of the C1 vertebral body appear normal on the odontoid view. IMPRESSION: No evidence of fracture or dislocation of the cervical spine. Report Dictated on Workstation: [employer] --- Final --- Dictating Physician: MD FRIEND JONATHAN R Signed Date and Time: 05/06/2022 7:04 pm Signed by: MD FRIEND JONATHAN R Transcribed Date and Time: 05/06/2022 7:05 [facility] Work Phone: [facility] Work Phone: XR WRIST RIGHT 3 VWon 2021 Patient Name: MATTIE RODRIGUEZ Diagnostic Radiology ACCESSION EXAM DATE/TIME PROCEDURE ORDERING PROVIDER [id number] 05/06/2022 18:05 EDT CR Wrist Complete 3 MD OLEARY JESSE Views Right CPT code 63746 Reason For Exam (CR Wrist Complete 3 Views Right) Injury Report RIGHT WRIST CLINICAL INDICATION: Pain AP, lateral, and oblique plain film views of the right wrist were obtained. COMPARISON: 08/29/2017 FINDINGS: No fracture or dislocation of the right wrist is identified. There is no abnormal soft tissue swelling or radiopaque foreign body seen. IMPRESSION: No fracture or dislocation of the right wrist is identified. Report Dictated on --- Final --- Dictating Physician: MD FRIEND JONATHAN R Signed Date and Time: 05/06/2022 6:15 pm Signed by: MD FRIEND JONATHAN R Transcribed Date and Time: 05/06/2022 6:17 [facility] Benjamin Friend MD - 05/06/2022 Patient Name: MATTIE RODRIGUEZ Diagnostic Radiology ACCESSION EXAM DATE/TIME PROCEDURE ORDERING PROVIDER [id number] 05/06/2022 18:05 EDT CR Wrist Complete 3 MD GENO, PIETRO Views Right CPT code 57560 Reason For Exam (CR Wrist Complete 3 Views Right) Injury Report RIGHT WRIST CLINICAL INDICATION: Pain AP, lateral, and oblique plain film views of the right wrist were obtained. COMPARISON: 08/29/2017 FINDINGS: No fracture or dislocation of the right wrist is identified. There is no abnormal soft tissue swelling or radiopaque foreign body seen. IMPRESSION: No fracture or dislocation of the right wrist is identified. Report Dictated on --- Final --- Dictating Physician: MD FRIEND JONATHAN R Signed Date and Time: 05/06/2022 6:15 pm Signed by: MD FRIEND JONATHAN R Transcribed Date and Time: 05/06/2022 6:17 [facility] Work Phone: XR WRIST RIGHT 3 VWOrdered B y: Benjamin Friend on 05-06-2022 [facility] Work Phone: 25(OH)D3 [facility] 2021 25-hydroxyvitamin D3 [Mass/Vol] 21.3 ng/mL Low 31.0-80.0 [facility] Comment on above: Order Comment: Speci men Type: BLOOD SPECIMEN [facility] Address: [address] [place] [id number] Result Comment: Clas sification of 25 OH Vitamin D status: Deficiency/Insufficiency: < or = 30 ng/ml. Sufficiency/Optimal Levels: 31-80 ng/mL Toxicity: > 100 ng/mL. Test performed by chemiluminescent immunoassay. Performed By: #### 2 4331-1, 2132-06, #### [facility] CLIA [id number] [address] [place] [address] [place] CBC W Auto Differential pane l (Bld)on 05-04-2022 Basophils (Bld) [#/Vol] 0.04 10*3/uL Normal <0.11 [facility] Comment on above: Order Comment: Speci men Type: BLOOD SPECIMEN [facility] Address: [address] [place] [address] Performed By: #### 2 4331-1, 2132-06, #### [facility] CLIA [id number] [address] [place] [address] [place] Basophils/100 WBC (Bld) 0.5 % Normal [facility] Comment on above: Order Comment: Speci men Type: BLOOD SPECIMEN [facility] Address: [address] [place] [address] Performed By: #### 2 4331-1, 2132-06, #### [facility] CLIA [id number] [address] [place] [address] [place] Differential cell count method Nom (Bld) Auto Normal [facility] Comment on above: Order Comment: Speci men Type: BLOOD SPECIMEN [facility] Address: [address] [place] [address] Performed By: #### 2 4331-1, 2132-06, #### [facility] CLIA [id number] [address] [place] [address] [place] Eosinophils (Bld) [#/Vol] 0.22 10*3/uL Normal <0.46 [facility] Comment on above: Order Comment: Speci men Type: BLOOD SPECIMEN [facility] Address: [address] [place], [place] [address] Performed By: #### 2 4331-1, 2132-06, #### [facility] CLIA [id number] [address] [place] [address] [place] Eosinophils/100 WBC (Bld) 2.8 % Normal [facility] Comment on above: Order Comment: Speci men Type: BLOOD SPECIMEN [facility] Address: [address] [place] [address] Performed By: #### 2 4331-1, 2132-06, #### [facility] CLIA [id number] [address] [place] [address] [place] Erythrocyte distribution width (RBC) [Ratio] 13.8 % Normal 11.5-15.0 [facility] Comment on above: Order Comment: Speci men Type: BLOOD SPECIMEN [facility] Address: [address] [place], [place] [address] Performed By: #### 2 4331-1, 2132-06, #### [facility] CLIA [id number] [address] [place] [address] [place] Hematocrit (Bld) [Volume fraction] 42.3 % Normal 36.0-46.0 [facility] Comment on above: Order Comment: Speci men Type: BLOOD SPECIMEN [facility] Address: [address] [place], [place] [address] Performed By: #### 2 4331-1, 2132-06, #### [facility] CLIA [id number] [address] [place] [address] [place] Hemoglobin (Bld) [Mass/Vol] 13.1 g/dL Normal 11.5-15.5 [facility] Comment on above: Order Comment: Speci men Type: BLOOD SPECIMEN [facility] Address: [address] [place], [place] [address] Performed By: #### 2 4331-1, 2132-06, #### [facility] CLIA [id number] [address] [place] [address] [place] IMMATURE GRAN % 0.3 % Normal [facility] Comment on above: Order Comment: Speci men Type: BLOOD SPECIMEN [facility] Address: [address] [place], [place] [address] Performed By: #### 2 4331-1, 2132-06, #### [facility] CLIA [id number] [address] [place] [address] [place] IMMATURE GRAN ABS <0.03 Normal <0.10 [facility] Comment on above: Order Comment: Speci men Type: BLOOD SPECIMEN [facility] Address: [address] [place] [address] Performed By: #### 2 4331-1, 2132-06, #### [facility] CLIA [id number] [address] [place] [address] [place] Lymphocytes (Bld) [#/Vol] 2.08 10*3/uL Normal 1.00-4.00 [facility] Comment on above: Order Comment: Speci men Type: BLOOD SPECIMEN [facility] Address: [address] [place], [place] [address] Performed By: #### 2 4331-1, 2132-06, #### [facility] CLIA [id number] [address] [place] [address] [place] Lymphocytes/100 WBC (Bld) 26.9 % Normal [facility] Comment on above: Order Comment: Speci men Type: BLOOD SPECIMEN [facility] Address: [address] [place], [place] [address] Performed By: #### 2 4331-1, 2132-06, #### [facility] CLIA [id number] [address] [place] [address] [place] MCH (RBC) [Entitic mass] 27.0 pg Normal 26.0-34.0 [facility] Comment on above: Order Comment: Speci men Type: BLOOD SPECIMEN [facility] Address: [address] [place], [place] [address] Performed By: #### 2 4331-1, 2132-06, #### [facility] CLIA [id number] [address] [place] [address] [place] MCHC (RBC) [Mass/Vol] 31.0 g/dL Normal 30.5-36.0 [facility] Comment on above: Order Comment: Speci men Type: BLOOD SPECIMEN Order[facility] Address: [address] [place], [place] [id number] Performed By: #### 2 433-, 2132-06, #### [facility] CLIA [id number] [address] [place] [address] [place] MCV (RBC) [Entitic vol] 87.2 fL Normal 80.0-100.0 [facility] Comment on above: Order Comment: Speci men Type: BLOOD SPECIMEN [facility] Address: [address] [place], [place] [id number] Performed By: #### 2 4331-1, 2132-06, #### [facility] CLIA [id number] [address] [place] [address] [place] Monocytes (Bld) [#/Vol] 0.78 10*3/uL Normal <0.87 [facility] Comment on above: Order Comment: Speci men Type: BLOOD SPECIMEN [facility] Address: [address] [place], [place] [id number] Performed By: #### 2 4331-1, 2132-06, #### [facility] CLIA [id number] [address] [place] [address] [place] Monocytes/100 WBC (Bld) 10.1 % Normal [facility] Comment on above: Order Comment: Speci men Type: BLOOD SPECIMEN [facility] Address: [address] [place], [place] [address] Performed By: #### 2 4331-1, 2132-06, #### [facility] CLIA [id number] [address] [place] [address] [place] Neutrophils (Bld) [#/Vol] 4.59 10*3/uL Normal 1.45-7.50 [facility] Comment on above: Order Comment: Speci men Type: BLOOD SPECIMEN [facility] Address: [address] [place], [place] [id number] Performed By: #### 2 433-, 2132-06, #### [facility] CLIA [id number] [address] [place] [address] [place] Neutrophils/100 WBC (Bld) 59.4 % Normal [facility] Comment on above: Order Comment: Speci men Type: BLOOD SPECIMEN Order[facility] Address: [address] [place] [address] Performed By: #### 2 433-1, 2132-06, #### [facility] CLIA [id number] [address] [place], [place] [id number] [place] Nucleated RBC (Bld) [#/Vol] 10*3/uL Normal <0.01 [facility] Comment on above: Order Comment: Speci men Type: BLOOD SPECIMEN [facility] Address: [address] [place] [address] Performed By: #### 2 4331-1, 2132-06, #### [facility] CLIA [id number] [address] [place] [address] [place] Nucleated RBC/100 WBC (Bld) [Ratio] 0.0 /100 WBC Normal [facility] Comment on above: Order Comment: Speci men Type: BLOOD SPECIMEN [facility] Address: [address] [place] [address] Performed By: #### 2 4331-1, 2132-06, #### [facility] CLIA [id number] [address] [place] [address] [place] Platelet mean volume (Bld) [Entitic vol] 9.6 fL Normal 9.0-12.7 [facility] Comment on above: Order Comment: Speci men Type: BLOOD SPECIMEN [facility] Address: [address] [place], [place] [phone] Performed By: #### 2 433-, 2132-06, #### [facility] CLIA [id number] [address] [place] [address] [place] Platelets (Bld) [#/Vol] 374 10*3/uL Normal 150-400 [facility] Comment on above: Order Comment: Speci men Type: BLOOD SPECIMEN [facility] Address: [address] [place] [address] Performed By: #### 2 433-1, 2132-06, #### [facility] CLIA [id number] [address] [place], [place] [address] [place] RBC (Bld) [#/Vol] 4.85 10*6/uL Normal 3.90-5.20 [facility] Comment on above: Order Comment: Speci men Type: BLOOD SPECIMEN [facility] Address: [address] [place] [address] Performed By: #### 2 433-1, 2132-06, #### [facility] CLIA [id number] [address] [place] [address] [place] WBC (Bld) [#/Vol] 7.73 10*3/uL Normal 3.70-11.00 [facility] Comment on above: Order Comment: Speci men Type: BLOOD SPECIMEN [facility] Address: [address] [place] [address] [place] [address] Performed By: #### 2 4331-1, 2132-06, #### [facility] CLIA [id number] [address] [place] [address] [place] CNOVon 05-04-2022 CNOV Office Visit ([facility]WADS ) MATTIE RODRIGUEZ ([id number]) 1 F Date Time Provider Department 05/04/22 4:00 PM KENNETH SALAZAR BRAD During your visit today, we recorded the following information about you: Temperature Pulse Blood pressure Weight 97.1 degrees 70/minute 118/68 82 kg Height Last Period 1.676 m 04/15/22 Kenneth Salazar PA-C 05/04/2022 5:01 PM Signed [facility] Mattie Rodriguez is a 17 year old female presents today to [facility]. She was previously seen by [facility]. She is accompanied today by her mother and nephew. Recently seen at [facility] 05/02/22 for urinary frequency and intermittent nausea. Urine dip with glucose, hemoglobin, protein, urobilinogen, and leukocytes. Treated for UTI (did not start antibiotic yet), culture resulted mixed rhianna. FSBS at this visit was 84. HCG negative. She is still having urinary frequency x1 week. No dysuria. No hematuria. No abdominal pain. No constipation or diarrhea. She has intermittent nausea without vomiting. Regularly drinks alcohol at night but doesn't eat or drink much otherwise. Has had some intermittent increased thirst recently. No known family history of DM, but doesn't know history on dad's side. Mattie smokes nicotine (vapes) constantly and smokes marijuana daily. No other drug use. Alcohol daily recently as well with friends as noted above. Mattie reports feeling down about herself for several months. She was previously seeing a counselor in high school and through [facility], but hasn't seen them in a while. She has been prescribed Lexapro and Atarax PRN in the past but doesn't really take them. Denies SI/HI at this time, denies any thoughts of self-harm. She doesn't feel comfortable talking about the issues she has, but would be willing to consider establishing with a new counselor/psychiatris t. Immunizations: - up to date on childhood immunizations per mother, who is at visit - Flu: 08/18/2013 - COVID: no, not interested - HPV: 09/13/15, 02/16/16, 06/12/16 -TDaP: 06/01/2015 Women's Health: - LMP: irregular, unsure of date. Has been off DepoProvera injections x19 months but cycles never regulated. - hx of ovarian cyst with reupture - follows with OBGYN and had recent negative STI testing 06/2021 - Pap: few months ago Diet: Doesn't eat much, especially the last few months. Nothing besides water today (4pm). States she doesn't have much of an appetite typically. Exercise: Active hiking and rock climbing with friends, no formal exercise. Eye Exam: Just there a few months ago. Has glasses but doesn't wear them Dentist: not regularly Review of Systems: Review of Systems Constitutional: Positive for appetite change. Negative for chills, fatigue and fever. HENT: Negative for congestion, rhinorrhea and sore throat. Respiratory: Negative for cough and shortness of breath. Cardiovascular: Negative for chest pain. Gastrointestinal: Positive for nausea. Negative for abdominal pain, blood in stool, constipation, diarrhea and vomiting. Genitourinary: Positive for frequency. Negative for decreased urine volume, difficulty urinating, dysuria, hematuria, pelvic pain, urgency, vaginal bleeding and vaginal discharge. Musculoskeletal: Negative for joint swelling and neck pain. Skin: Negative for rash. Allergic/Immunologic: Negative for immunocompromised state. Neurological: Negative for dizziness, weakness and light-headedness. Hematological: Does not bruise/bleed easily. Psychiatric/Behaviora l: Negative for agitation, behavioral problems and confusion. History Reviewed: No past medical history on file. No past surgical history on file. No family history on file. Social History Tobacco Use - Smoking status: Never Smoker - Smokeless tobacco: Never Used Substance Use Topics - Alcohol use: Not on file - Drug use: Not on file ALLERGIES No Known Allergies Current Outpatient Medications Medication Sig - nitrofurantoin monohydrate and macrocrystal (MACROBID) 100 mg capsule Take 1 capsule by mouth twice daily for 5 days. (Patient not taking: Reported on 05/04/2022 ) Physical Exam: Physical Exam Vitals and nursing note reviewed. Constitutional: General: She is awake. She is not in acute distress. Appearance: Normal appearance. She is well-developed and well-groomed. She is not ill-appearing, toxic-appearing or diaphoretic. HENT: Head: Normocephalic and atraumatic. Right Ear: Tympanic membrane, ear canal and external ear normal. No drainage, swelling or tenderness. No middle ear effusion. There is no impacted cerumen. No foreign body. Tympanic membrane is not injected, scarred, perforated, erythematous, retracted or bulging. Left Ear: Tympanic membrane, ear canal and external ear normal. No drainage, swelling or tenderness. No middle ear effusion. The (more content not included)... [facility]N [facility] (RONNY) MATTIE RODRIGUEZ ([id number]) 1 F Date Time Provider Department 05/04/22 FLORA WHEELER During your visit today, we recorded the following information about you: Flora Wheeler PA-C 05/04/2022 11:08 AM Signed Left message with patient's mother asking patient to return call. If patient's symptoms are improving, she can continue to take antibiotics as prescribed. If symptoms are not improving, please have her come in for a nurse visit to provide another urine sample. Kayli August 05/04/2022 4:17 PM Signed Patient notified of results. Verbalized understanding with no further questions or concerns. Kayli August Allergies As of Date: 05/04/2022 (No Known Allergies) Date Reviewed: 05/04/2022 Reviewed by: Kayli August - Fully Assessed Reason for Visit: Results [95] Prescriptions as of 05/04/2022 - nitrofurantoin monohydrate and macrocrystal (MACROBID) 100 mg capsule Take 1 capsule by mouth twice daily for 5 days. Problem List As Of Date: 05/04/2022 (None) Encounter Status:Closed by FLORA WHEELER on 05/04/22 Normal [facility] Comprehensive metabolic 2000 panelon 05-04-2022 Albumin [Mass/Vol] 4.5 g/dL Normal 3.9-4.[address] [facility] Comment on above: Order Comment: Sandra rutherford Type: BLOOD SPECIMEN [facility] Address: [address] [place] [phone] Performed By: #### 2 433-1, 2132-06, #### [facility] CLIA [id number] [address] [place] [address] [place] ALP [Catalytic activity/Vol] 56 U/L Normal 34-123 [facility] Comment on above: Order Comment: Speci krish Type: BLOOD SPECIMEN [facility] Address: [address] [place] [phone] Performed By: #### 2 4331-1, 2132-06, #### [facility] CLIA [id number] [address] [place] [address] [place] ALT [Catalytic activity/Vol] 15 U/L Normal 7-38 [facility] Comment on above: Order Comment: Speci men Type: BLOOD SPECIMEN [facility] Address: [address] [place] [phone] Performed By: #### 2 4331-1, 2132-06, #### [facility] CLIA [id number] [address] [place] [address] [place] Anion gap [Moles/Vol] 12 mmol/L Normal 9-18 [facility] Comment on above: Order Comment: Speci men Type: BLOOD SPECIMEN [facility] Address: [address] [place], [place] [phone] Performed By: #### 2 4331-1, 2132-06, #### [facility] CLIA [id number] [address] [place] [address] [place] AST [Catalytic activity/Vol] 28 U/L Normal 13-35 [facility] Comment on above: Order Comment: Speci men Type: BLOOD SPECIMEN [facility] Address: [address] [place], [place] [phone] Performed By: #### 2 4331-1, 2132-06, #### [facility] CLIA [id number] [address] [place] [address] [place] Bilirubin [Mass/Vol] 0.5 mg/dL Normal 0.2-1.3 [facility] Comment on above: Order Comment: Speci men Type: BLOOD SPECIMEN [facility] Address: [address] [place] [phone] Performed By: #### 2 4331-1, 2132-06, #### [facility] CLIA [id number] [address] [place], [place] [address] [place] Calcium [Mass/Vol] 9.6 mg/dL Normal 8.5-10.[address] [facility] Comment on above: Order Comment: Speci men Type: BLOOD SPECIMEN [facility] Address: [address] [place] [phone] Performed By: #### 2 4331-1, 2132-06, #### [facility] CLIA [id number] [address] [place] [address] [place] Chloride [Moles/Vol] 102 mmol/L Normal 97-105 [facility] Comment on above: Order Comment: Speci men Type: BLOOD SPECIMEN [facility] Address: [address] [place], [place] [phone] Performed By: #### 2 4331-1, 2132-06, #### [facility] CLIA [id number] [address] [place] [address] [place] CO2 [Moles/Vol] 24 mmol/L Normal 22-30 [facility] Comment on above: Order Comment: Speci men Type: BLOOD SPECIMEN [facility] Address: [address] [place], [place] [phone] Performed By: #### 2 4331-1, 2132-06, #### [facility] CLIA [id number] [address] [place] [address] [place] Creatinine [Mass/Vol] 0.70 mg/dL Normal 0.58-0.96 [facility] Comment on above: Order Comment: Speci men Type: BLOOD SPECIMEN [facility] Address: [address] [place] [phone] Performed By: #### 2 4331-1, 2132-06, #### [facility] CLIA [id number] [address] [place], [place] [address] [place] ESTIMATED GLOMERULAR FILTRATION RATE 128 mL/min/1.73m??? Normal >=60 [facility] Comment on above: Order Comment: Sandra rutherford Type: BLOOD SPECIMEN [facility] Address: [address] [place] [phone] Result Comment: Magdalena mated Glomerular Filtration Rate (eGFR) is calculated using the 2020 CKD-EPI creatinine equation. This equation utilizes serum creatinine, sex, and age as parameters. The creatinine assay has traceable calibration to isotope dilution-mass spectrometry. Refer to KDIGO guidelines for clinical interpretation. In patients with unstable renal function, e.g. those with acute kidney injury, the eGFR may not accurately reflect actual GFR. Performed By: #### 2 4331-1, 2132-06, #### [facility] CLIA [id number] [address] [place] [address] [place] Glucose [Mass/Vol] 79 mg/dL Normal 74-[address] [facility] Comment on above: Order Comment: Sandra rutherford Type: BLOOD SPECIMEN [facility] Address: [address] [place] [phone] Result Comment: The [place] Diabetes Association (ADA) provides guidance for cutoff values for fasting glucose and random glucose. The ADA defines fasting as no caloric intake for at least 8 hours. Fasting plasma glucose results between 100 to 125 mg/dL indicate increased risk for diabetes (prediabetes). Fasting plasma glucose results greater than or equal to 126 mg/dL meet the criteria for diagnosis of diabetes. In the absence of unequivocal hyperglycemia, results should be confirmed by repeat testing. In a patient with classic symptoms of hyperglycemia or hyperglycemic crisis, random plasma glucose results greater than or equal to 200 mg/dL meet the criteria for diagnosis of diabetes. Reference: Standards of Medical Care in Diabetes 2016, [place] Diabetes Association. Diabetes Care. 2016.39(Suppl 1). Performed By: #### 2 4331-1, 2132-06, #### [facility] CLIA [id number] [address] [place] [address] [place] Potassium [Moles/Vol] 4.1 mmol/L Normal 3.7-5.1 [facility] Comment on above: Order Comment: Sandra rutherford Type: BLOOD SPECIMEN [facility] Address: [address] [place], [place] [phone] Performed By: #### 2 4331-1, 2132-06, #### [facility] CLIA [id number] [address] [place] [address] [place] Protein [Mass/Vol] 7.6 g/dL Normal 6.3-8.[address] [facility] Comment on above: Order Comment: Speci men Type: BLOOD SPECIMEN [facility] Address: [address] [place], [place] [phone] Performed By: #### 2 4331-1, 2132-06, #### [facility] CLIA [id number] [address] [place] [address] [place] Sodium [Moles/Vol] 138 mmol/L Normal 136-[address] [facility] Comment on above: Order Comment: Speci men Type: BLOOD SPECIMEN [facility] Address: [address] [place], [place] [phone] Performed By: #### 2 4331-1, 2132-06, #### [facility] CLIA [id number] [address] [place] [address] [place] Urea nitrogen [Mass/Vol] 13 mg/dL Normal 7-21 [facility] Comment on above: Order Comment: Speci men Type: BLOOD SPECIMEN [facility] Address: [address] [place], [place] [phone] Performed By: #### 2 4331-1, 2132-06, #### [facility] CLIA [id number] [address] [place] [address] [place] HCV Ab Ser Qlon 05-04-2022 HCV Ab Ql (S) Positive Abnormal Negative [facility] Comment on above: Order Comment: Speci men Type: BLOOD SPECIMEN [facility] Address: [address] [place] [phone] Result Comment: Conf irmation with Hepatitis C RNA has been ordered and charged. Performed By: #### 1 6128-1, 21501-2 #### [facility] CLIA [id number] [address] [place] [address] [place] HCV RNA SerPl HYUN+probe-[facility] on 05-04-2022 HCV RNA HYUN+probe Qn Not detected Normal HCV RNA not detected by PCR. [facility] Comment on above: Order Comment: Speci men Type: BLOOD SPECIMEN [facility] Address: [address] [place], [place] [phone] Performed By: #### 1 6128-1, 77675-9 #### [facility] CLIA [id number] [address] [place] [address] [place] HIV 1+2 Ab IA Qlon 2 HIV 1 and 2 Ab IA.rapid Nom Normal [facility] Comment on above: Order Comment: Speci men Type: BLOOD SPECIMEN [facility] Address: [address] [place] [address] Result Comment: Test not indicated. Performed By: #### 2 4331-1, 2132-06, #### [facility] CLIA [id number] [address] [place] [address] [place] HIV 1+2 Ab+HIV1 p24 Ag IA Ql Non-Reactive Normal Nonreactive [facility] Comment on above: Order Comment: Speci men Type: BLOOD SPECIMEN [facility] Address: [address] [place] [phone] Performed By: #### 2 4331-1, 2132-06, #### [facility] CLIA [id number] [address] [place] [address] [place] HIVINT Normal [facility] Comment on above: Order Comment: Speci men Type: BLOOD SPECIMEN [facility] Address: [address] [place], [place] [phone] Result Comment: No e vidence of HIV-1 or HIV-2 infection. Should recent infection be suspected, repeat testing may be considered 2-3 weeks after this draw. [place] Rev. Code 3701.243(E): This information has been disclosed to you from confidential records protected from disclosure by state law. ???You shall make no further disclosure of this information without the specific, written, and informed release of the individual to whom it pertains or as otherwise permitted by state law. A general authorization for the release of medical or other information is not sufficient for the purpose of the release of HIV test results or diagnoses. Performed By: #### 2 4331-1, 2132-06, #### [facility] CLIA [id number] [address] [place] [address] [place] [facility] HbA1c (Bld)on 05-04-2022 Average glucose Estimated from glycated hemoglobin (Bld) [Mass/Vol] 100 mg/dL Normal [facility] Comment on above: Order Comment: Sandra rutherford Type: BLOOD SPECIMEN [facility] Address: [address] [place], [place] [phone] Result Comment: eAG: (Estimated average glucose) is a calculated value from HgbA1c and is used equipment sales representative of the average blood glucose level in the last 2-3 month period. Performed By: #### 2 4331-1, 2132-06, 28711-7 #### [facility] CLIA [id number] [address] [place] [address] [place] HbA1c (Bld) [Mass fraction] 5.1 % Normal 4.3-5.6 [facility] Comment on above: Order Comment: Emilyi men Type: BLOOD SPECIMEN [facility] Address: [address] [place] [phone] Result Comment: [place] Diabetes Association guidelines indicate that patients with HgbA1c in the range 5.7-6.4% are at increased risk for development of diabetes, and intervention by lifestyle modification may be beneficial. HgbA1c greater or equal to 6.5% is considered diagnostic of diabetes. Performed By: #### 2 4331-1, 2132-06, #### [facility] CLIA [id number] [address] [place] [address] OF [facility] Lipid 1996 panelon 2 Cholesterol [Mass/Vol] 155 mg/dL Normal <170 [facility] Comment on above: Order Comment: Speci men Type: BLOOD SPECIMEN [facility] Address: [address] [place] [address] Result Comment: <170 mg/dL, Acceptable 170-199 mg/dL, Borderline high >199 mg/dL, High Performed By: #### 2 4331-1, 2132-06, #### [facility] CLIA [id number] [address] [place] [address] Cholesterol in HDL [Mass/Vol] 37 mg/dL Low >45 [facility] Comment on above: Order Comment: Speci men Type: BLOOD SPECIMEN [facility] Address: [address] [place], [place] [phone] Result Comment: >45 mg/dL, Acceptable 40-45 mg/dL, Borderline <40 mg/dL, Low Performed By: #### 2 4331-1, 2132-06, #### [facility] CLIA [id number] [address] [place] [address] [place] Cholesterol in LDL [Mass/Vol] 100 mg/dL Normal <110 [facility] Comment on above: Order Comment: Speci men Type: BLOOD SPECIMEN [facility] Address: [address] [place] [phone] Result Comment: <110 mg/dL, Acceptable 110-129 mg/dL, Borderline high >129 mg/dL, High Performed By: #### 2 4331-1, 2132-06, #### [facility] CLIA [id number] [address] [place] [address] [facility] OF [place] Cholesterol in LDL/Cholesterol in HDL [Mass ratio] 2.70 {ratio} High <2.42 [facility] Comment on above: Order Comment: Sandra rutherford Type: BLOOD SPECIMEN [facility] Address: [address] [place] [address] Result Comment: Refena jorge: 1. Expert Panel on Integrated Guidelines for Cardiovascular Health and Risk Reduction in Children and Adolescents: National Heart, Lung and Blood [place]. Pediatrics. 2011: 128(Suppl 5):K081-469. Performed By: #### 2 4331-1, 2132-06, #### [facility] CLIA [id number] [address] [place] [address] [place] Cholesterol in VLDL [Mass/Vol] 18 mg/dL High <18 [facility] Comment on above: Order Comment: Sandra rutherford Type: BLOOD SPECIMEN [facility] Address: [address] [place] [address] Performed By: #### 2 4331-1, 2132-06, #### [facility] CLIA [id number] [address] [place] [address] [place] Cholesterol non HDL [Mass/Vol] 118 mg/dL Normal <120 [facility] Comment on above: Order Comment: Sandra rutherford Type: BLOOD SPECIMEN [facility] Address: [address] [place], [place] [phone] Result Comment: <120 mg/dL, Acceptable 120-144 mg/dL, Borderline high >144 mg/dL, High Performed By: #### 2 4331-1, 2132-06, #### [facility] CLIA [id number] [address] [place] [address] [place] Cholesterol.total/Daniela sterol in HDL [Mass ratio] 4.19 {ratio} High <3.76 [facility] Comment on above: Order Comment: Sandra rutherford Type: BLOOD SPECIMEN [facility] Address: [address] [place], [place] [phone] Performed By: #### 2 4331-1, 2132-06, #### [facility] CLIA [id number] [address] [place] [address] [place] FASTING TIME 0 hrs Normal [facility] Comment on above: Order Comment: Speci men Type: BLOOD SPECIMEN [facility] Address: [address] [place], [place] [phone] Performed By: #### 2 4331-1, 2132-06, #### [facility] CLIA [id number] [address] [place] [address] [place] Triglyceride [Mass/Vol] 88 mg/dL Normal <90 [facility] Comment on above: Order Comment: Speci men Type: BLOOD SPECIMEN [facility] Address: [address] [place], [place] [phone] Result Comment: <90 mg/dL, Acceptable 90-129 mg/dL, Borderline high >129 mg/dL, High Performed By: #### 2 4331-1, 2132-06, #### [facility] CLIA [id number] [address] [place] [address] [place] Vit B12 [facility] Cobalamin (Vitamin B12) [Mass/Vol] 402 pg/mL Normal 232-1,245 [facility] Comment on above: Order Comment: Speci men Type: BLOOD SPECIMEN [facility]ing [facility] Address: [address] [place], [place] [id number] Performed By: #### 2 4331-1, 2132-06, #### [facility] CLIA [id number] [address] [place] [address] [place] Bacteria Ur Culton 2 Bacteria identified Cx Nom (U) ORGANISM ID: 1 50,000-<100,000 CFU/ml Mixed microbiota No further workup. Mixed microbiota can be due to???urine???contamin ation with skin bacteria at time of collection or presence of a long-term urinary catheter. If a new culture is needed, please consider re-education of the patient on proper midstream collection technique or straight catheterization for???urine???collect ion. Normal [facility] Comment on above: Performed By: #### 2 4331-1, 2132-9, 92631-7 #### [facility] CLIA [id number] [address] [place] [address] OF [facility] CNOVon 05-02-2022 CNOV Office Visit (RILEYWA ) MATTIE RODRIGUEZ ([id number]) 1 F Date Time Provider Department 05/02/22 2:55 PM AMOS WRIGHT During your visit today, we recorded the following information about you: Temperature Pulse Respiration Blood pressure 98 degrees 84/minute 16/minute 125/84 Weight Height 80.2 kg 1.676 m Katherine Perez MA 05/02/2022 3:07 PM Signed Patient presents with: Nausea Work Note Amos Wright PA-C 05/02/2022 7:36 PM Addendum 05/02/2022 Patient presents with: Nausea Work Note SUBJECTIVE: This is a 17 year old female that is here for a return to work letter. She initially stated that she came in for a work excuse letter. She and a friend (whom she works with) missed a day of work 7 days ago, and her work requires her to have a return to work letter. She states she missed work due to nausea, which has resolved. Then she states nausea actually has not resolved, and has been off and on daily x 7 days. She had a negative test at home yesterday. She is not on BC. She has irregular menses, and so, does not know when her LMP was. She then states she has had off and on STACY and urine frequency. I'm urinating constantly. Though she states she eats and drinks little due to decreased appetite. She denies dysuria or other UTI symptoms. No vaginal complaints. No diarrhea, abdominal pain, back pain, fever, chills, sweats, or other sick symptoms. . No sinus symptoms, cough, or rash. Denies fever, chills, sweats, or fatigue. Patient denies wheezing, shortness of breath, increased WOB, or chest pain. No other URI symptoms. No other sick symptoms. Pain on scale of 0-10 with 0 being no pain and 10 being greatest pain: 0 Nothing makes the symptoms better. Nothing makes them worse. Self-treatment:. none The severity is mild and the symptoms are not improving. The patient did not have a similar problem in the last 3 months. The patient did not take any antibiotics in the last 3 months. Barriers to learning: none. Reviewed meds, OTCs, herbals or supplements. Reviewed allergies, medications, social history, and past medical history. No past medical history on file. ALLERGIES Patient has no known allergies. MEDICATIONS No current outpatient medications on file. No current facility-administered medications for this visit. Medications and allergies reviewed by this provider. SOCIAL HISTORY Social History Tobacco Use - Smoking status: Never Smoker - Smokeless tobacco: Never Used Substance Use Topics - Alcohol use: Not on file - Drug use: Not on file REVIEW OF SYSTEMS Review of Systems ROS: constitutional-neg, HENT-neg, Eyes- neg, heart-neg, respiratory-neg, GI- nasuea, -neg, skin-neg, lymph-neg, MSK- neg, All systems neg except as noted above in HPI. OBJECTIVE: BP 125/84 Pulse 84 Temp 36.7 ?C (98 ?F) (Oral) Resp 16 Ht 167.6 cm (5' 6) Wt 80.2 kg (176 lb 12.8 oz) SpO2 99% BMI 28.54 kg/m? . Vital signs reviewed by this provider. Physical Exam Vitals reviewed. Constitutional: General: She is not in acute distress. Appearance: Normal appearance. She is normal weight. She is not ill-appearing, toxic-appearing or diaphoretic. HENT: Head: Normocephalic and atraumatic. No right periorbital erythema or left periorbital erythema. Eyes: General: Lids are normal. Conjunctiva/sclera: Conjunctivae normal. Pupils: Pupils are equal, round, and reactive to light. Cardiovascular: Rate and Rhythm: Normal rate and regular rhythm. Heart sounds: Normal heart sounds. Pulmonary: Effort: Pulmonary effort is normal. Breath sounds: Normal breath sounds and air entry. Abdominal: General: Abdomen is flat. Bowel sounds are normal. Palpations: Abdomen is soft. Tenderness: There is no abdominal tenderness. There is no right CVA tenderness, left CVA tenderness, guarding or rebound. Negative signs include Rowe's sign, McBurney's sign, psoas sign and obturator sign. Lymphadenopathy: Cervical: No cervical adenopathy. Skin: General: Skin is warm. Findings: No rash. Neurological: General: No focal deficit present. Mental Status: She is alert and oriented to person, place, and time. Psychiatric: Behavior: Behavior is cooperative. ASSESSMENT/PLAN: 1. Nausea - ICD9: 787.02, ICD10: R11.0 (primary diagnosis) 2. Irregular menses - ICD9: 626.4, ICD10: N92.6 x1 week No other sick symptoms Unable to urinate here in the clinic for further work up. Sent home with Urine collection supplies and instructed to come back in a sample by 6:30 tonight for testing. She VU - HCG QUAL UR B/O- Not performed. Could not urinate - UA DIP, URINE (POC)- Not performed. Could not urinate - Negative home test yesterday - Advised PCP or CORE MAKER follow up Call your TRAVELING CLERK Encourage fluids, rest. Fallon foods Tylenol and Motrin If you (more content not included)... Normal [facility] HCG QUAL UR B/Oon 05-02-2022 status Negative neg - pos [facility] Quality Check Yes [facility] - Chemistry and C hemistry - challengeon 05-02-2022 Glucose [Mass/Vol] 84 mg/dL 65 - 100 mg/dL [facility] UA DIP, URINE (POC)on 2021 BILIRUBIN UA (POCT) Small Abnormal Negative [facility] CLARITY UA (POCT) Clear [facility] COLOR UA (POCT) Dark yellow [facility] GLUCOSE UA (POCT) 100 mg/dL Abnormal Negative mg/dL [facility] HEMOGLOBIN/BLOOD UA (POCT) Large Abnormal Negative [facility] KETONE UA (POCT) Trace Negative mg/dL [facility] LEUKOCYTES UA (POCT) Trace Abnormal Negative [facility] NITRITE UA (POCT) Negative Negative [facility] PH UA (POCT) 6.0 4.5 - 8.0 [facility] Protein Ql (U) >=300 Abnormal Negative mg/dL [facility] SPECIFIC GRAVITY UA (POCT) >=1.030 1.005 - 1.030 [facility] UROBILINOGEN UA (POCT) 2.0 E.U./dL Abnormal Manuela l E.U./dL [facility] hCG Quantitativeon 2 hCG Quantitative < 2 Normal [facility] Comment on above: Result Comment: Fema les < 5 Values in should double every 2 to 3 days for the first 6 weeks.Elevated concentrations of human chorionic gonadotropin (hCG) measured in the first trimester of are observed in normal , but may serve as an indication of chorionic carcinoma, hydatiform mole, or multiple .Decreasing hCG concentrations indicate threatened or missed , recent termination of , ectopic , gestosis or intrauterine . Amy- and postmenopausal females may have detectable hCG concentrations (< or = to 14 mIU/mL) due to pituitary production of hCG. Serum follicle-stimulating hormone measurement may aid in ruling-out in this population. Cutoffs of greater than 20 to 45 mIU/mL have been suggested and are method dependent. False-elevations (called phantom human chorionic gonadotropin: hCG) may occur with patients who have human antianimal or heterophilic antibodies. Some specimens may not dilute linearly due to abnormal forms of hCG. Elevated hCG concentrations not associated with are found in patients with other diseases such as tumors of the germ cells, ovaries, bladder, pancreas, stomach, lungs, and liver. This test is not intended to detect or monitor tumors or gestational trophoblastic disease. Performed By: #### Q WNT5 #### [facility] [address] [place] [address] Progress Noteon 11-27-2021 [employer]ionics Technician Authentication Interface Message Text Patient ID: Mattie Rodriguez is a 16 y.o. female. Her chief complaint(s) include: 16 YEAR WELL CHILD (Med check also) Assessment 1. Routine general medical examination at a health care facility 2. Depressive disorder 3. Attention deficit disorder, unspecified hyperactivity presence Plan Mattie was seen today for 16 year well child. Diagnoses and all orders for this visit: Routine general medical examination at a health care facility - PHQ9 Assessment With Score Depressive disorder Attention deficit disorder, unspecified hyperactivity presence Return in about 1 year (around 11/27/2022) for well check. Mattie Rodriguez is a 16 y.o. female patient. PHQ9 Assessment With Score Performed by: Mariama Garcia APRN-CNP Authorized by: Mariama Garcia APRN-CNP PHQ-9 See PHQ9 Flowsheet Feeling down, depressed, irritable or hopeless: Several days Little interest or pleasure in doing things: Several days Trouble falling or staying sleep, or sleeping too much: Several days Poor appetite, weight loss, or overeating: Several days Feeling tired or having little energy: Several days Feeling bad about yourself - or feeling that you are a failure, or have let yourself or your family down: Several days Trouble concentrating on things, like school work, reading or watching TV: Several days Moving or speaking so slowly that other people could have noticed. Or the opposite - being so fidgety or restless that you were moving around a lot more than usual: Not at all Thoughts that you would be better off , or of hurting yourself in some way: Not at all In the past year have you felt depressed or sad most days, even if you felt OK sometimes?: Yes If you are experiencing any of the problems on this form, how difficult have these problems made it for you to do your work, take care of things at home or get along with other people?: Somewhat difficult Has there been a time in the past month when you have had serious thoughts about ending your life?: No Have you ever, in your whole life, tried to kill yourself or made a suicide attempt?: No PHQ-9 Total Score: 7 Electronically signed by: CHELITA Haque Subjective HPI Comments: Here for well exam and med check. Is on adderall 20mg xr and lexapro 20mg daily, both are working well. 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 Sees CORE MAKER for cysts. Is going back to get her graduation degree. She is unaccompanied. No ct tech was used. 16 YEAR WELL CHILD Home: Mattie eats meals with family and has an adult to turn to for help. Education: Mattie is in the work force. Eating: Mattie eats regular meals including fruits and vegetables. Activities & Sports: Mattie has friends and has a job. Drugs: Mattie does vape. Safety: Mattie uses seat belt. Sex: The patient has a sexual partner. The patient is interested in males. The patient has had sex. Typically, the patient uses condoms as current contraceptive method. Menstruation Last Menstrual period: cannot remember Menstruation: irregular periods Output Urine and Stool Pattern: Urine and Stool Pattern: Normal stool pattern, normal urine pattern. Stool Consistency: soft Sleep Hours of sleep at a time: 6 Screenings Previous Vaccine Reactions: No. Life events information was reviewed-no referral needed Hearing Vision Concerns: Patient wears glasses or contact lenses. The caregiver has no concerns about the patient's hearing. The caregiver has no concerns about the patient's vision. Primary Care Review of Systems Objective Vital Signs 11/27/21 1037 BP: 130/74 Pulse: 88 Resp: 16 Weight: 86.1 kg Height: 165 cm HC: 20 cm (7.87) Body mass index is 31.62 kg/m . Physical Exam Nursing note reviewed. Constitutional: She appears well. She is active. No distress. HENT: Head: Atraumatic. Ears: Right Ear: Tympanic membrane and external ear normal. Left Ear: Tympanic membrane and external ear normal. Nose: Nose normal. Mouth/Throat: Mucous membranes are moist. Dentition is normal. Oropharynx is clear. Eyes: Conjunctivae and EOM are normal. No strabismus. Pupils are equal, round, and reactive to light. Neck: Neck supple. Thyroid normal. Cardiovascular: Normal rate, regular rhythm, S1 normal and S2 normal. Pulses are palpable. Heart murmur not heard. Pulmonary/Chest: Breath sounds normal. No respiratory distress. Exhibits no deformity. Robert stage (breast) is 5. Abdominal: Soft. Bowel sounds are normal. She exhibits no distension and no mass. There is no hepatosplenomegaly. There is no abdominal tenderness. Genitourinary: Robert stage (genital) is 5. Musculoskeletal: Cervical back: Normal range of motion and neck supple. Lumbar back: No scoliosis. General: Normal range of motion. Neurological: She is alert. She has normal strength. She exhibits normal muscle tone. Gait normal. Skin: Skin is warm. Skin is not pale. F (more content not included)... Normal [facility] CULTURE URINEon 10-24-2021 CULTURE URINE CULTURE URINE --> Status: F Normal urogenital rhianna present. Normal [facility] [employer] [facility] Comment on above: Performed By: #### C /UR ####[employer] [address] [place] [address] Add On Lab Teston 10-23-2021 Add On Accepted [facility] Comment on above: Specimen available & acceptable for analysis. Test Performed by [facility], [address] , [address] LAB [facility] Add on test from HISon 10-23 Add on test from HIS Accepted Normal [facility] [employer] [facility] Comment on above: Result Comment: Spec imen available & acceptable for analysis. Performed By: #### A DDON #### [facility] [employer] [facility] [address] [place] [address] Complete Urinalysison 2020 Appearance (U) Clear Normal Clear [facility] Comment on above: Result Comment: . Performed By: #### C UA2, HCGUR ####[facility] [employer] [address] [place] [address] Bilirubin,Urine Negative Normal Negative [facility] Comment on above: Result Comment: . Performed By: #### C UA2, HCGUR ####[facility] [employer] [place] [address] Color (U) LIGHT YELLOW Normal Lt. Yellow [facility] Comment on above: Result Comment: . Performed By: #### C UA2, HCGUR ####[facility] [employer] [address] [place] [address] Glucose Ql (U) Normal Normal Normal (<70) [facility] Comment on above: Result Comment: . Performed By: #### C UA2, HCGUR ####[facility] [place] [address] Ketone,Urine Negative Normal Negative [facility] Comment on above: Result Comment: . Performed By: #### C UA2, HCGUR ####[facility] [place] [address] Leukocytes,Urine Negative Normal Negative [facility] Comment on above: Result Comment: . Performed By: #### C UA2, HCGUR ####[place] [address] [place] [address] Nitrites,Urine Negative Normal Negative [facility] Comment on above: Result Comment: . Performed By: #### C UA2, HCGUR ####[facility] [place] [address] Occult Blood,Urine Negative Normal Negative [facility] Comment on above: Result Comment: . Performed By: #### C UA2, HCGUR ####[address] [address] pH,Urine 6.0 Normal 5.0-8.0 [facility] Comment on above: Result Comment: . Performed By: #### C UA2, HCGUR ####[facility] [place] [address] Specific [place],Urine 1.022 Normal 1.005 - 1.030 [facility] Comment on above: Result Comment: . Performed By: #### C UA2, HCGUR ####[place] [address] [place] [address] Total Protein,Urine Negative Normal Negative [facility] Comment on above: Result Comment: . Performed By: #### C UA2, HCGUR ####[place] [address] [place] [address] Urobilinogen,Urine Normal Normal Normal (0-1) [facility] Comment on above: Result Comment: . Performed By: #### C UA2, HCGUR ####[place] [address] [place] [address] HCG,Urine Qualon 10-23-2021 Beta HCG ( test) Ql (U) Negative Normal Negative [facility] Comment on above: Result Comment: Plea se note: Very dilute urine specimens, as indicated by a low specific gravity, may not contain used equipment sales representative levels of hCG. If is still suspected, a first morning urine specimen should be collected 48 hours later and tested. is the most common reason for HCG in urine, although choriocarcinoma, hydatidiform mole, and certain nontropho- blastic malignancies also result in detectable urinary HCG levels. Sensitivity = 20mIU/mL. Performed By: #### C UA2, HCGUR ####[facility] [place] [address] , Urineon Beta HCG ( test) Ql (U) Negative Negative NA [facility] Comment on above: Please note: Very di lute urine specimens, as indicated by a low specific gravity, may not contain used equipment sales representative levels of hCG. If is still suspected, a first morning urine specimen should be collected 48 hours later and tested. is the most common reason for HCG in urine, although choriocarcinoma, hydatidiform mole, and certain nontropho- blastic malignancies also result in detectable urinary HCG levels. Sensitivity = 20mIU/mL. Test Performed by [facility], [address] , [place], [place] [id number] [place] [address] LAB [facility] Urinalysison 10-23-2021 Appearance (U) Clear Clear NA [facility] Comment on above: . Bilirubin Urine Negative Negative mg/dL [facility] Comment on above: . Color (U) LIGHT YELLOW Lt. Yellow NA [facility] Comment on above: . Glucose, Ur Normal Normal (<70) mg/dL [facility] Comment on above: . Ketones Ql (U) Negative Negative mg/dL [facility] Comment on above: . LEUKOCYTES, UA Negative Negative Ivan/uL [facility] Comment on above: . Nitrite, Urine Negative Negative NA [facility] Comment on above: . Occult Blood,Urine Negative Negative mg/dL [facility] Comment on above: . pH (U) 6.0 [pH] [facility] Comment on above: . Specific [place], Urine 1.022 S [facility] Comment on above: . Total Protein, Urine Negative Negativ e mg/dL [facility] Comment on above: . Urobilinogen, Urine Normal Normal ( 0-1) mg/dL [facility] Comment on above: . Test Performed by [facility], [address] , [place], [place] [address] [facility] ED Provider Noteon ED Provider Note - Attestation signed by Denzel Garcia DO at 09/27/2021 8:15 AM This patient was seen independently by the advanced practice provider. I was available during the visit for consultation if needed, however, I was not directly involved in the care of this patient and did not evaluate them. [facility] ED eMERGENCY dEPARTMENT eNCOUnter Pt Name: Mattie Rodriguez Birthdate 2005 Date of evaluation: 09/26/2021 Provider: NIKI Block CNP I have evaluated this patient on my own, per my scope of practice with an attending physician available for consultation. CHIEF COMPLAINT Chief Complaint Patient presents with ? Suicidal has not been eating, making herself throw up, 3-4 weeks, feels very depressed - grandfather , has been cutting herself on her thighs. has been cutting herself for a while. states she is supposed to take lexapro. denies specific plan in place to harm herself. HISTORY OF PRESENT ILLNESS (Location/Symptom, Timing/Onset,Context/ Setting, Quality, Duration, Modifying Factors, Severity) Note limiting factors. HPI Mattie Rodriguez is a 16 y.o. female who presents to the emergency department with depression. Patient has a history of anxiety she supposed be taking Lexapro her grandfather on the fourth of this month, since then she has been not eating, when she eats she is been forcing herself to throw up allegedly. She states she is been doing this because she does not like her body image but had no history of this prior to her grandfather passing away. She also cut her thigh yesterday with a knife, she states frankly she does not know why she did it but she adamantly denies that she is suicidal or wants to kill her self. Nursing Notes were reviewed. REVIEW OF SYSTEMS (2+ for4; 10+ for level 5) Review of Systems Constitutional: Negative for activity change, appetite change, chills and fever. HENT: Negative for congestion, ear discharge, ear pain, hearing loss, postnasal drip, rhinorrhea and sore throat. Eyes: Negative for discharge and redness. Respiratory: Negative for chest tightness and shortness of breath. Cardiovascular: Negative for chest pain and palpitations. Gastrointestinal: Negative for abdominal pain, blood in stool, diarrhea, nausea and vomiting. Genitourinary: Negative for dysuria. Musculoskeletal: Negative for arthralgias and myalgias. Skin: Negative for color change. Neurological: Negative for dizziness, light-headedness and headaches. Psychiatric/Behaviora l: Positive for self-injury and suicidal ideas. Negative for agitation, confusion, decreased concentration and hallucinations. All other systems reviewed and are negative. PAST MEDICAL HISTORY Past Medical History: Diagnosis Date ? ADHD ? Anxiety ? Depression ? Ovarian cyst SURGICALHISTORY History reviewed. No pertinent surgical history. CURRENT MEDICATIONS Previous Medications AMPHETAMINE-DEXTROAMP HETAMINE (ADDERALL) 10 MG TABLET take 1 tablet by mouth EVERY AFTERNOON ESCITALOPRAM (LEXAPRO) 20 MG TABLET Take 20 mg by mouth daily IBUPROFEN (ADVIL;MOTRIN) 800 MG TABLET Take 800 mg by mouth every 6 hours as needed for Pain Patient has no known allergies. FAMILY HISTORY History reviewed. No pertinent family history. SOCIAL HISTORY Social History Socioeconomic History ? Marital status: Single Spouse name: None ? Number of children: None ? Years of education: None ? Highest education level: None Occupational History ? None Tobacco Use ? Smoking status: Current Every Day Smoker ? Smokeless tobacco: Never Used Vaping Use ? Vaping Use: Every day Substance and Sexual Activity ? Alcohol use: Not Currently ? Drug use: Yes Types: Marijuana (Justice) ? Sexual activity: None Other Topics Concern ? None Social History Narrative ? None Social Determinants of Health Financial Resource Strain: ? Difficulty of Paying Living Expenses: Not on file Food Insecurity: ? Worried About Running Out of Food in the Last Year: Not on file ? Ran Out of Food in the Last Year: Not on file Transportation Needs: ? Lack of Transportation (Medical): Not on file ? Lack of Transportation (Non-Medical): Not on file Physical Activity: ? Days of Exercise per Week: Not on file ? Minutes of Exercise per Session: Not on file Stress: ? Feeling of Stress : Not on file Social Connections: ? Frequency of Communication with Friends and Family: Not on file ? Frequency of Social Gatherings with Friends and Family: Not on file ? Attends Pentecostal Services: Not on file ? Active Member of Clubs or Organizations: Not on file ? Attends Club or Organization Meetings: Not on file ? Marital Status: Not on file Intimate Partner Violence: ? Fear of Current or Ex-Partner: Not on (more content not included)... Normal [facility] MRI UPPER EXTREMITY RIGHT W JT WO CONTRASTOrdered By: Richard Jimenez on 08-07-2021 Patient Name: MATTIE RODRIGUEZ Magnetic Resonance Imaging ACCESSION EXAM DATE/TIME PROCEDURE ORDERING PROVIDER [id number] 08/07/2021 09:20 EDT MRI Up Ext Joint w/o MD JIMENEZ MICHAEL Contrast Right JOY CPT code 71165 Reason For Exam (MRI Up Ext Joint w/o Contrast Right) mass of joint right wrist Report Examination: MRI right wrist Clinical Indication: mass of joint right wrist Comparison: Ultrasound 07/11/2021 Findings: Multiplanar multisequence MRI images were obtained through the right wrist without intravenous gadolinium contrast. Cutaneous markers were placed proximal and distal to the area of perceived palpable abnormality along the volar aspect of the wrist. There is no suspicious soft tissue or osseous mass in the region of interest. There is small but normal-appearing subcutaneous vessel. There is some slight lobular subcutaneous fat also present but normal in signal. There is no discrete lipoma. No definite pulmonary is longus tendon thickening or nodularity in the region of interest. Two slight nodularities noted on comparison ultrasound are not grossly visualized by noncontrast MRI. Visualized ligaments and tendons appear intact. Small perforating vessel noted along the dorsal aspect of the capitate. No wrist joint effusion. No ligament/tendon tear or significant arthropathy. No tendon tenosynovitis. Median nerve and carpal tunnel demonstrate no abnormality. No gross abnormality seen along Guyon's canal. There is no subcutaneous inflammation. Impression: No suspicious soft tissue or osseous lesions in the region of interest. The questionable soft tissue nodularities noted on ultrasound are not visualized by noncontrast MRI. Magnetic Resonance Imaging Report Report Dictated on --- Final --- Dictating Physician: MD FLORES ANTHONY J Signed Date and Time: 08/07/2021 10:39 am Signed by: MD FLORES ANTHONY J Transcribed Date and Time: 08/07/2021 10:40 [facility] Work Phone: Nicolas, [facility] Incoming Radiology Results From [facility] - 08/07/2021 10:40 AM EDT Patient Name: MATTIE RODRIGUEZ Magnetic Resonance Imaging ACCESSION EXAM DATE/TIME PROCEDURE ORDERING PROVIDER [id number] 08/07/2021 09:20 EDT MRI Up Ext Joint w/o MD JIMENEZ MICHAEL Contrast Right JOY CPT code 03272 Reason For Exam (MRI Up Ext Joint w/o Contrast Right) mass of joint right wrist Report Examination: MRI right wrist Clinical Indication: mass of joint right wrist Comparison: Ultrasound 07/11/2021 Findings: Multiplanar multisequence MRI images were obtained through the right wrist without intravenous gadolinium contrast. Cutaneous markers were placed proximal and distal to the area of perceived palpable abnormality along the volar aspect of the wrist. There is no suspicious soft tissue or osseous mass in the region of interest. There is small but normal-appearing subcutaneous vessel. There is some slight lobular subcutaneous fat also present but normal in signal. There is no discrete lipoma. No definite pulmonary is longus tendon thickening or nodularity in the region of interest. Two slight nodularities noted on comparison ultrasound are not grossly visualized by noncontrast MRI. Visualized ligaments and tendons appear intact. Small perforating vessel noted along the dorsal aspect of the capitate. No wrist joint effusion. No ligament/tendon tear or significant arthropathy. No tendon tenosynovitis. Median nerve and carpal tunnel demonstrate no abnormality. No gross abnormality seen along Guyon's canal. There is no subcutaneous inflammation. Impression: No suspicious soft tissue or osseous lesions in the region of interest. The questionable soft tissue nodularities noted on ultrasound are not visualized by noncontrast MRI. Magnetic Resonance Imaging Report Report Dictated on --- Final --- Dictating Physician: MD FLORES ANTHONY J Signed Date and Time: 08/07/2021 10:39 am Signed by: MD FLORES ANTHONY J Transcribed Date and Time: 08/07/2021 10:40 [facility] Work Phone: [facility] Work Phone: MRI Up Ext Joint w/o Contras t [place] 08-07-2021 MRI Up Ext Joint w/o Contrast Right Patient Name: MATTIE RODRIGUEZ Magnetic Resonance Imaging ACCESSION EXAM DATE/TIME PROCEDURE ORDERING PROVIDER [id number] 08/07/2021 09:20 EDT MRI Up Ext Joint w/o MD JIMENEZ MICHAEL Contrast Right JOY CPT code 93047 Reason For Exam (MRI Up Ext Joint w/o Contrast Right) mass of joint right wrist Report Examination: MRI right wrist Clinical Indication: mass of joint right wrist Comparison: Ultrasound 07/11/2021 Findings: Multiplanar multisequence MRI images were obtained through the right wrist without intravenous gadolinium contrast. Cutaneous markers were placed proximal and distal to the area of perceived palpable abnormality along the volar aspect of the wrist. There is no suspicious soft tissue or osseous mass in the region of interest. There is small but normal-appearing subcutaneous vessel. There is some slight lobular subcutaneous fat also present but normal in signal. There is no discrete lipoma. No definite pulmonary is longus tendon thickening or nodularity in the region of interest. Two slight nodularities noted on comparison ultrasound are not grossly visualized by noncontrast MRI. Visualized ligaments and tendons appear intact. Small perforating vessel noted along the dorsal aspect of the capitate. No wrist joint effusion. No ligament/tendon tear or significant arthropathy. No tendon tenosynovitis. Median nerve and carpal tunnel demonstrate no abnormality. No gross abnormality seen along Guyon's canal. There is no subcutaneous inflammation. Impression: No suspicious soft tissue or osseous lesions in the region of interest. The questionable soft tissue nodularities noted on ultrasound are not visualized by noncontrast MRI. Magnetic Resonance Imaging Report Report Dictated on Final Dictating Physician: MD FLORES ANTHONY J Signed Date and Time: 08/07/2021 10:39 am Signed by: MD FLORES ANTHONY J Transcribed Date and Time: 08/07/2021 10:40 Normal [facility] US EXTREMITY NON VASCULAR CO MPLETEOrdered By: Richard Jimenez on 07-11-2021 Patient Name: MATTIE RODRIGUEZ Ultrasound ACCESSION EXAM DATE/TIME PROCEDURE ORDERING PROVIDER [id number] 07/11/2021 11:29 EDT US Extremity Katerina JIMENEZ MD, MICHAEL Vascular Complete JOY CPT code 67319 Reason For Exam (US Extremity Non Vascular Complete) MULTIPLE MASSES ON RIGHT UPPER EXT Report Indication: Multiple masses associated with right wrist. No comparison. FINDINGS: Focused ultrasound in the region of patient's symptoms was performed. There are two hypoechoic lesions, probably arising within deep subcutaneous tissues or adjacent structures, 4 mm x 5 mm x 3 mm and 3 mm x 3 mm x 2 mm, approximately in line with the ring finger. No associated calcification or fluid collection. IMPRESSION: There are two subcentimeter soft tissue masses on the volar side of the right wrist corresponding to the patient's symptoms. The etiology is uncertain; the broad differential includes tumor or tumor-like conditions. Consider follow-up or further evaluation depending on the clinical symptoms. Report Dictated on --- Final --- Dictating Physician: MD ABEL JOHN Signed Date and Time: 07/11/2021 11:36 am Signed by: MD ABEL JOHN Transcribed Date and Time: 07/11/2021 11:37 [facility] Work Phone: Nicolas, [facility] Incoming Radiology Results From [facility] - 07/11/2021 11:37 AM EDT Patient Name: MATTIE RODRIGUEZ Ultrasound ACCESSION EXAM DATE/TIME PROCEDURE ORDERING PROVIDER [id number] 07/11/2021 11:29 EDT US Extremity Katerina JIMENEZ MD, MICHAEL Vascular Complete JOY CPT code 47720 Reason For Exam (US Extremity Non Vascular Complete) MULTIPLE MASSES ON RIGHT UPPER EXT Report Indication: Multiple masses associated with right wrist. No comparison. FINDINGS: Focused ultrasound in the region of patient's symptoms was performed. There are two hypoechoic lesions, probably arising within deep subcutaneous tissues or adjacent structures, 4 mm x 5 mm x 3 mm and 3 mm x 3 mm x 2 mm, approximately in line with the ring finger. No associated calcification or fluid collection. IMPRESSION: There are two subcentimeter soft tissue masses on the volar side of the right wrist corresponding to the patient's symptoms. The etiology is uncertain; the broad differential includes tumor or tumor-like conditions. Consider follow-up or further evaluation depending on the clinical symptoms. Report Dictated on --- Final --- Dictating Physician: MD ABEL JOHN Signed Date and Time: 07/11/2021 11:36 am Signed by: MD ABEL JOHN Transcribed Date and Time: 07/11/2021 11:37 [facility] Work Phone: US Extremity Non Vascular Co mpleteon 07-11-2021 US Extremity Non Vascular Complete Patient Name: MATTIE RODRIGUEZ Ultrasound ACCESSION EXAM DATE/TIME PROCEDURE ORDERING PROVIDER [id number] 07/11/2021 11:29 EDT US Extremity Katerina JIMENEZ MD, MICHAEL Vascular Bere JOY CPT code 55793 Reason For Exam (US Extremity Non Vascular Complete) MULTIPLE MASSES ON RIGHT UPPER EXT Report Indication: Multiple masses associated with right wrist. No comparison. FINDINGS: Focused ultrasound in the region of patient's symptoms was performed. There are two hypoechoic lesions, probably arising within deep subcutaneous tissues or adjacent structures, 4 mm x 5 mm x 3 mm and 3 mm x 3 mm x 2 mm, approximately in line with the ring finger. No associated calcification or fluid collection. IMPRESSION: There are two subcentimeter soft tissue masses on the volar side of the right wrist corresponding to the patient's symptoms. The etiology is uncertain; the broad differential includes tumor or tumor-like conditions. Consider follow-up or further evaluation depending on the clinical symptoms. Report Dictated on Final Dictating Physician: MD ABEL JOHN Signed Date and Time: 07/11/2021 11:36 am Signed by: MD ABEL JOHN Transcribed Date and Time: 07/11/2021 11:37 [address] [facility] [address] Abdomen and Pelvis W cont rast IVOrdered By: Cassie Stewart on 06-16-2021 Patient Name: MATTIE RODRIGUEZ Computed Tomography ACCESSION EXAM DATE/TIME PROCEDURE ORDERING PROVIDER [id number] 06/16/2021 07:[address] Abdomen/Pelvis w/ IV MD STEWART KIMBERLY Contrast (IV Onl CPT code 41153 Q9967 Reason For Exam (CT Abdomen/Pelvis w/ IV Contrast (IV Onl) LUQ pain Report CLINICAL INFORMATION: Left lower quadrant abdominal and pelvic pain. Vomiting. CT ABDOMEN AND PELVIS WITH INTRAVENOUS CONTRAST: Contrast: Isovue-370, [address] ABDOMEN: Volume acquisition CT images are obtained from diaphragm to iliac crests following intravenous contrast only with axial, coronal and sagittal 2-D reconstructions. Oral contrast was withheld by request of the ordering physician. The absence of oral contrast reduces the sensitivity of the examination. Images through the upper abdomen which included the lower chest demonstrate no significant abnormal pleural or parenchymal densities. The liver, spleen, pancreas and kidneys are unremarkable in size, configuration and density. There is no hydronephrosis. There is no abnormality of the gallbladder. There is no adrenal gland mass or enlargement. No ascites or retroperitoneal lymphadenopathy is seen. No focal mass, fluid collection or inflammatory changes are identified. There is a moderate to large amount of fecal residue in normal caliber ascending colon. There is no abnormality of the abdominal aorta. CT PELVIS: Volume acquisition CT images were obtained from the iliac crests to the symphysis pubis following intravenous contrast only with axial, coronal and sagittal 2-D reconstructions. There is an incompletely distended unopacified urinary bladder without calcified calculus. There is mild circumferential urinary bladder wall thickening which is nonspecific and may be related to incomplete distention. There is an enlarged left ovary containing a nearly spherical 4.7 cm cyst. There is no other abnormality of the uterus or adnexa. There is a small amount of free fluid posterior to the cyst and lateral to the left side of the uterus. No focal mass or fluid collection is seen. There is no iliac or inguinal lymphadenopathy. The cecum is located in the near midline pelvis. There is a Computed Tomography Report normal-appearing appendix in the mid pelvis. No other ascites or inflammatory changes are identified. IMPRESSION: 1. Enlarged left ovary containing a nearly spherical 4.7 cm cyst. This could be the source of the patient's pain. Correlate with clinical parameters. 2. Small amount of nonspecific posterior adjacent free fluid. 3. No evidence of other mass, fluid collection, lymphadenopathy or inflammatory process. Report Dictated on --- Final --- Dictating Physician: MD MICHELLE HARLAN Signed Date and Time: 06/16/2021 7:43 am Signed by: MD MICHELLE HARLAN Transcribed Date and Time: 06/16/2021 7:44 [facility] Work Phone: [facility], [facility] Incoming Radiology Results From [facility] - 06/16/2021 7:44 AM EDT Patient Name: MATTIE RODRIGUEZ Computed Tomography ACCESSION EXAM DATE/TIME PROCEDURE ORDERING PROVIDER [id number] 06/16/2021 07:[address] Abdomen/Pelvis w/ IV MD STEWART KIMBERLY Contrast (IV Onl CPT code 95754 Q9967 Reason For Exam (CT Abdomen/Pelvis w/ IV Contrast (IV Onl) LUQ pain Report CLINICAL INFORMATION: Left lower quadrant abdominal and pelvic pain. Vomiting. CT ABDOMEN AND PELVIS WITH INTRAVENOUS CONTRAST: Contrast: Isovue-370, [address] ABDOMEN: Volume acquisition CT images are obtained from diaphragm to iliac crests following intravenous contrast only with axial, coronal and sagittal 2-D reconstructions. Oral contrast was withheld by request of the ordering physician. The absence of oral contrast reduces the sensitivity of the examination. Images through the upper abdomen which included the lower chest demonstrate no significant abnormal pleural or parenchymal densities. The liver, spleen, pancreas and kidneys are unremarkable in size, configuration and density. There is no hydronephrosis. There is no abnormality of the gallbladder. There is no adrenal gland mass or enlargement. No ascites or retroperitoneal lymphadenopathy is seen. No focal mass, fluid collection or inflammatory changes are identified. There is a moderate to large amount of fecal residue in normal caliber ascending colon. There is no abnormality of the abdominal aorta. CT PELVIS: Volume acquisition CT images were obtained from the iliac crests to the symphysis pubis following intravenous contrast only with axial, coronal and sagittal 2-D reconstructions. There is an incompletely distended unopacified urinary bladder without calcified calculus. There is mild circumferential urinary bladder wall thickening which is nonspecific and may be related to incomplete distention. There is an enlarged left ovary containing a nearly spherical 4.7 cm cyst. There is no other abnormality of the uterus or adnexa. There is a small amount of free fluid posterior to the cyst and lateral to the left side of the uterus. No focal mass or fluid collection is seen. There is no iliac or inguinal lymphadenopathy. The cecum is located in the near midline pelvis. There is a Computed Tomography Report normal-appearing appendix in the mid pelvis. No other ascites or inflammatory changes are identified. IMPRESSION: 1. Enlarged left ovary containing a nearly spherical 4.7 cm cyst. This could be the source of the patient's pain. Correlate with clinical parameters. 2. Small amount of nonspecific posterior adjacent free fluid. 3. No evidence of other mass, fluid collection, lymphadenopathy or inflammatory process. Report Dictated on --- Final --- Dictating Physician: MD MICHELLE HARLAN Signed Date and Time: 06/16/2021 7:43 am Signed by: MD MICHELLE HARLAN Transcribed Date and Time: 06/16/2021 7:44 [facility] Work Phone: [facility] Work Phone: CT Abdomen/Pelvis w/ Contras ton 06-16-2021 CT Abdomen/Pelvis w/ Contrast Patient Name: MATTIE RODRIGUEZ Computed Tomography ACCESSION EXAM DATE/TIME PROCEDURE ORDERING PROVIDER [id number] 06/16/2021 07:[address] Abdomen/Pelvis w/ IV MD RONDA, CASSIE Contrast (IV Onl CPT code 35742 Q9967 Reason For Exam (CT Abdomen/Pelvis w/ IV Contrast (IV Onl) LUQ pain Report CLINICAL INFORMATION: Left lower quadrant abdominal and pelvic pain. Vomiting. CT ABDOMEN AND PELVIS WITH INTRAVENOUS CONTRAST: Contrast: Isovue-370, [address] ABDOMEN: Volume acquisition CT images are obtained from diaphragm to iliac crests following intravenous contrast only with axial, coronal and sagittal 2-D reconstructions. Oral contrast was withheld by request of the ordering physician. The absence of oral contrast reduces the sensitivity of the examination. Images through the upper abdomen which included the lower chest demonstrate no significant abnormal pleural or parenchymal densities. The liver, spleen, pancreas and kidneys are unremarkable in size, configuration and density. There is no hydronephrosis. There is no abnormality of the gallbladder. There is no adrenal gland mass or enlargement. No ascites or retroperitoneal lymphadenopathy is seen. No focal mass, fluid collection or inflammatory changes are identified. There is a moderate to large amount of fecal residue in normal caliber ascending colon. There is no abnormality of the abdominal aorta. CT PELVIS: Volume acquisition CT images were obtained from the iliac crests to the symphysis pubis following intravenous contrast only with axial, coronal and sagittal 2-D reconstructions. There is an incompletely distended unopacified urinary bladder without calcified calculus. There is mild circumferential urinary bladder wall thickening which is nonspecific and may be related to incomplete distention. There is an enlarged left ovary containing a nearly spherical 4.7 cm cyst. There is no other abnormality of the uterus or adnexa. There is a small amount of free fluid posterior to the cyst and lateral to the left side of the uterus. No focal mass or fluid collection is seen. There is no iliac or inguinal lymphadenopathy. The cecum is located in the near midline pelvis. There is a Computed Tomography Report normal-appearing appendix in the mid pelvis. No other ascites or inflammatory changes are identified. IMPRESSION: 1. Enlarged left ovary containing a nearly spherical 4.7 cm cyst. This could be the source of the patient's pain. Correlate with clinical parameters. 2. Small amount of nonspecific posterior adjacent free fluid. 3. No evidence of other mass, fluid collection, lymphadenopathy or inflammatory process. Report Dictated on Final Dictating Physician: MD MICHELLE HARLAN Signed Date and Time: 06/16/2021 7:43 am Signed by: MD MICHELLE HARLAN Transcribed Date and Time: 06/16/2021 7:44 Normal [facility] Comp Metabolic Panelon 06-16 ALT [Catalytic activity/Vol] 16 U/L Normal 0-34 [facility] Comment on above: Result Comment: The ALT test is performed by an updated assay method. Please note that the reference intervals have been changed and are now sex specific. Performed By: #### C MP3, LIPA4, QWAL2, HEMDF #### [facility] [address] [place] [address] Calcium [Mass/Vol] 9.8 mg/dL Normal 8.4-10.4 [facility] Comment on above: Performed By: #### C MP3, LIPA4, QWAL2, HEMDF #### [facility] [address] [place] [address] Glucose [Mass/Vol] 96 mg/dL Normal 70-100 [facility] Comment on above: Performed By: #### C MP3, LIPA4, QWAL2, HEMDF #### [facility] [address] [place] [address] ALP [Catalytic activity/Vol] 93 U/L Normal 38-126 [facility] Comment on above: Performed By: #### C MP3, LIPA4, QWAL2, HEMDF #### [facility] [address] [place] [address] Anion gap [Moles/Vol] 10 mmol/L Normal 3-13 [facility] Comment on above: Performed By: #### C MP3, LIPA4, QWAL2, HEMDF #### [facility] [address] [place] [address] AST [Catalytic activity/Vol] 41 U/L Normal 15-46 [facility] Comment on above: Performed By: #### C MP3, LIPA4, QWAL2, HEMDF #### [facility] [address] [place] [address] Bilirubin [Mass/Vol] 0.8 mg/dL Normal 0.2-1.3 [facility] Comment on above: Performed By: #### C MP3, LIPA4, QWAL2, HEMDF #### [facility] [address] [place] [address] CO2 [Moles/Vol] 22 mmol/L Normal 22-30 [facility] Comment on above: Performed By: #### C MP3, LIPA4, QWAL2, HEMDF #### [facility] [address] [place] [address] Creatinine [Mass/Vol] 0.55 mg/dL Normal 0.52-1.25 [facility] Comment on above: Performed By: #### C MP3, LIPA4, QWAL2, HEMDF #### [facility] [address] [place] [address] eGFR OTHER > 90.0 Normal >60 [facility] Comment on above: Result Comment: KDIG O guidelines provide the following GFR categories: Stage GFR(ml/min/1.73 m2) Terms G1 >=90 Normal or high G2 60-89 Mildly decreased* G3a 45-59 Mildly to moderately decreased G3b 30-44 Moderately to severely decreased G4 15-29 Severely decreased G5 <15 Kidney failure *Relative to young adult level. In the absence of evidence of kidney damage, neither GFR category G1 nor G2 fulfill the criteria for CKD. The CKD-EPI equation is validated in individuals 18 years of age and older. Currently the best equation for estimating glomerular filtration rate (GFR) from serum creatinine in children is the Bedside Sesay equation. It is less accurate in patients with extremes of muscle mass, restriction of dietary protein, ingestion of creatine, extra-renal metabolism of creatinine, or treatment with medications that affect renal tubular creatinine secretion. Performed By: #### C MP3, LIPA4, QWAL2, HEMDF #### [facility] [address] [place] [address] GFR/1.73 sq M.predicted among blacks MDRD (S/P/Bld) [Vol rate/Area] mL/min/{1.73_m2} Normal >60 [facility] Comment on above: Performed By: #### C MP3, LIPA4, QWAL2, HEMDF #### [facility] [address] [place] [address] Protein [Mass/Vol] 8.8 g/dL High 6.3-8.2 [facility] Comment on above: Performed By: #### C MP3, LIPA4, QWAL2, HEMDF #### [facility] [address] [place] [address] Urea nitrogen [Mass/Vol] 10 mg/dL Normal 7-20 [facility] Comment on above: Performed By: #### C MP3, LIPA4, QWAL2, HEMDF #### [facility] [address] [place] [address] Potassium [Moles/Vol] 4.2 mmol/L Normal 3.5-5.1 [facility] Comment on above: Performed By: #### C MP3, LIPA4, QWAL2, HEMDF #### [facility] [address] [place] [address] Sodium [Moles/Vol] 139 mmol/L Normal 135-145 [facility] Comment on above: Performed By: #### C MP3, LIPA4, QWAL2, HEMDF #### [facility] [address] [place] [address] Albumin [Mass/Vol] 4.6 g/dL Normal 3.5-5.0 [facility] Comment on above: Performed By: #### C MP3, LIPA4, QWAL2, HEMDF #### [facility] [address] [place] [address] Chloride [Moles/Vol] 107 mmol/L Normal 98-107 [facility] Comment on above: Performed By: #### C MP3, LIPA4, QWAL2, HEMDF #### [facility] [address] [place] [address] Complete Urinalysison 2020 Appearance (U) Turbid Abnormal Clear [facility] Comment on above: Result Comment: . Performed By: #### C UA2 #### [facility] [address] [place] [address] Bilirubin,Urine Negative Normal Negative [facility] Comment on above: Result Comment: . Performed By: #### C UA2 #### [facility] [address] [place] [address] Color (U) Light-Yellow Normal Lt. Yellow [facility] Comment on above: Result Comment: . Performed By: #### C UA2 #### [facility] [address] [place] [address] Glucose Ql (U) Normal Normal Normal (<70) [facility] Comment on above: Result Comment: . Performed By: #### C UA2 #### [facility] [address] [place] [address] Ketone,Urine Negative Normal Negative [facility] Comment on above: Result Comment: . Performed By: #### C UA2 #### [facility] [address] [place] [address] Leukocytes,Urine Negative Normal Negative [facility] Comment on above: Result Comment: . Performed By: #### C UA2 #### [place] [address] [place] [address] Nitrites,Urine Negative Normal Negative [facility] Comment on above: Result Comment: . Performed By: #### C UA2 #### [facility] [address] [place] [address] Occult Blood,Urine Negative Normal Negative [facility] Comment on above: Result Comment: . Performed By: #### C UA2 #### [facility] [address] [place] [address] pH,Urine 6.0 Normal 5.0-8.0 [facility] Comment on above: Result Comment: . Performed By: #### C UA2 #### [facility] [address] [place] [address] Specific [place],Urine 1.016 Normal 1.005 - 1.030 [facility] Comment on above: Result Comment: . Performed By: #### C UA2 #### [facility] [address] [place] [address] Total Protein,Urine Negative Normal Negative [facility] Comment on above: Result Comment: . Performed By: #### C UA2 #### [place] [address] [place] [address] Urobilinogen,Urine Normal Normal Normal (0-1) [facility] Comment on above: Result Comment: . Performed By: #### C UA2 #### [facility] [address] [place] [address] Comprehensive Metabolic Pane lOrdered By: Cassie Stewart on 06-16-2021 Albumin [Mass/Vol] 4.6 g/dL 3.5 - 5.0 g/dL [facility] Work Phone: 1 ALP (Bld) [Catalytic activity/Vol] 93 U/L 38 - 126 U/L [facility] Work Phone: [phone] ALT [Catalytic activity/Vol] 16 U/L 0 - 34 U/L [facility] Work Phone: Comment on above: The ALT test is perf ormed by an updated assay method. Please note that the reference intervals have been changed and are now sex specific. Anion gap [Moles/Vol] 10 mmol/L 3 - 13 mmol/L [facility] Work Phone: [phone] AST [Catalytic activity/Vol] 41 U/L 15 - 46 U/L [facility] Work Phone: ) [phone] Bilirubin [Mass/Vol] 0.8 mg/dL 0.2 - 1 .3 mg/dL [facility] Work Phone: ) [phone] Calcium [Mass/Vol] 9.8 mg/dL 8.4 - 10. 4 mg/dL [facility] Work Phone: [phone] Chloride [Moles/Vol] 107 mmol/L 98 - 10 7 mmol/L [facility] Work Phone: ) [phone] CO2 [Moles/Vol] 22 mmol/L 22 - 30 mmol/L [facility] Work Phone: [phone] Creatinine [Mass/Vol] 0.55 mg/dL 0.52 - 1.25 mg/dL [facility] Work Phone: [phone] EGFR IF NonAfrican Ukrainian >90.0 >60 mL/min [facility] Work Phone: [phone] Comment on above: KDIGO guidelines pro vide the following GFR categories: Stage GFR(ml/min/1.73 m2) Terms G1 >=90 Normal or high G2 60-89 Mildly decreased* G3a 45-59 Mildly to moderately decreased G3b 30-44 Moderately to severely decreased G4 15-29 Severely decreased G5 <15 Kidney failure *Relative to young adult level. In the absence of evidence of kidney damage, neither GFR category G1 nor G2 fulfill the criteria for CKD. The CKD-EPI equation is validated in individuals 18 years of age and older. Currently the best equation for estimating glomerular filtration rate (GFR) from serum creatinine in children is the Bedside Sesay equation. It is less accurate in patients with extremes of muscle mass, restriction of dietary protein, ingestion of creatine, extra-renal metabolism of creatinine, or treatment with medications that affect renal tubular creatinine secretion. Free PSA/Total PSA [Mass fraction] 8.8 g/dL High 6.3 - 8.2 g/dL [facility] Work Phone: GFR/1.73 sq M.predicted among blacks MDRD (S/P/Bld) [Vol rate/Area] mL/min/{1.73_m2} >60 mL/min [facility] Work Phone: Glucose [Mass/Vol] 96 mg/dL 70 - 100 mg/dL [facility] Work Phone: Interpretation and review of laboratory results Abnormal [facility] Work Phone: Potassium [Moles/Vol] 4.2 mmol/L 3.5 - 5.1 mmol/L [facility] Work Phone: Sodium [Moles/Vol] 139 mmol/L 135 - 145 mmol/L [facility] Work Phone: Urea nitrogen (BldV) [Mass/Vol] 10 mg/dL 7 - 20 mg/dL [facility] Work Phone: ED Provider Noteon 1 ED Provider Note Patient endorsed to me by Dr. David. Patient presents with abdominal pain left mid to lower abdomen. On exam she does have left lower pelvic tenderness. No rebound or guarding. No vaginal bleeding. She has had vomiting. Labs reviewed. No UTI. 14,000 white blood cell count. She is not . She does have enlarged left ovary. Ultrasound showed ovarian cyst that needs follow-up to make sure that it is not malignancy versus other etiology. Pain is controlled. Patient be discharged home. 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 Certainly return here if any problems or concerns. No evidence of torsion. No evidence of acute surgical abdominal process. Comment: Please note this report has been produced using speech recognition software and may contain errors related to that system including errors in grammar, punctuation, and spelling, as well as words and phrases that may be inappropriate. If there is any questions or concerns please feel free to contact the dictating provider for clarification. Ziggy Salazar MD 06/16/21 1036 [facility] ED Provider Note Emergency Department Encounter [facility] ED Patient: Mattie Rodriguez : 2005 Date of Evaluation: 06/16/2021 ED Provider: Cassie Stewart MD Chief Complaint Chief Complaint Patient presents with ? Abdominal Pain ? Emesis GORDY Rodriguez is a 16 y.o. female who presents to the emergency department due to abdominal pain. The patient explains that her pain began 1.5 hours ago with associated nausea and an episode of vomiting. Her pain is located in the left upper quadrant region, with no associated fevers or chills, patient denies any direct trauma to her back or abdomen. She denies any vaginal bleeding or discharge. She said that she had not been feeling well all day since this morning she had been dealing with swollen nipples. She says that the swelling is significantly improved but they feel tender to the touch. Currently her pain is 7 out of 10 in severity with no aggravating or alleviating factors, no radiation of her pain. ROS: Review of Systems Constitutional: Negative for activity change, chills and fever. HENT: Negative for congestion, ear pain and sore throat. Eyes: Negative for pain and redness. Respiratory: Negative for cough, chest tightness and shortness of breath. Cardiovascular: Negative for chest pain and palpitations. Gastrointestinal: + Abdominal pain, nausea and vomiting Genitourinary: Negative for dysuria, flank pain and urgency. Musculoskeletal: Negative for arthralgias and myalgias. Skin: Negative for rash. Neurological: Negative for dizziness. Psychiatric/Behaviora l: Denying sodenies SI/HI, and hallucinations Past History History reviewed. No pertinent past medical history. History reviewed. No pertinent surgical history. Social History Socioeconomic History ? Marital status: Single Spouse name: None ? Number of children: None ? Years of education: None ? Highest education level: None Occupational History ? None Tobacco Use ? Smoking status: Current Every Day Smoker ? Smokeless tobacco: Never Used Vaping Use ? Vaping Use: Every day Substance and Sexual Activity ? Alcohol use: Not Currently ? Drug use: Yes Types: Marijuana ? Sexual activity: None Other Topics Concern ? None Social History Narrative ? None Social Determinants of Health Financial Resource Strain: ? Difficulty of Paying Living Expenses: Food Insecurity: ? Worried About Running Out of Food in the Last Year: ? Ran Out of Food in the Last Year: Transportation Needs: ? Lack of Transportation (Medical): ? Lack of Transportation (Non-Medical): Physical Activity: ? Days of Exercise per Week: ? Minutes of Exercise per Session: Stress: ? Feeling of Stress : Social Connections: ? Frequency of Communication with Friends and Family: ? Frequency of Social Gatherings with Friends and Family: ? Attends [employer] Services: ? Active Member of Clubs or Organizations: ? Attends Club or Organization Meetings: ? Marital Status: Intimate Partner Violence: ? Fear of Current or Ex-Partner: ? Emotionally Abused: ? Physically Abused: ? Sexually Abused: Medications/Allergies Previous Medications No medications on file No Known Allergies Physical Exam ED Triage Vitals [06/16/21 0511] BP Temp Temp Source Heart Rate Resp SpO2 Height Weight (!) 154/102 97.3 ?F (36.3 ?C) Temporal (!) 111 16 100 % -- -- GENERAL APPEARANCE: Awake and alert. Cooperative. No acute distress. But uncomfortable due to pain HEAD: Normocephalic. Atraumatic. EYES: Sclera anicteric. ENT: Tolerates saliva. No trismus. NECK: Supple. Trachea midline. CARDIO: RRR. Radial pulse 2+. LUNGS: Respirations unlabored. CTAB. ABDOMEN: Soft. Non-distended. Left upper quadrant tenderness to palpation, no guarding, no rebound tenderness EXTREMITIES: No acute deformities. SKIN: Warm and dry. NEUROLOGICAL: No gross facial drooping. Moves all 4 extremities spontaneously. PSYCHIATRIC: Normal mood. Diagnostics Labs: Results for orders placed or performed during the hospital encounter of 06/16/21 Hemogram (CBC) w/Auto Diff Result Value Ref Range WBC 14.9 (H) 3.6 - 10.7 10*3/uL RBC 4.77 3.80 - 5.20 10*6/uL Hemoglobin 13.1 11.7 - 16.0 g/dL Hematocrit 38.7 35.0 - 47.0 % MCV 81.1 79.0 - 98.0 fL MCH 27.4 26.0 - 34.0 pg MCHC 33.8 32.0 - 36.0 % RDW 15.1 (H) 11.5 - 14.5 % Platelets 369 140 - 440 10*3/uL MPV 7.0 (L) 7.4 - 10.4 fL Granulocytes % 71.8 40.0 - 80.0 % Lymphocyte % 16.3 (L) 20.0 - 40.0 % Monocytes 9.6 2.0 - 10.0 % Eosinophils 2.0 1.0 - 6.0 % Basophils 0.3 0.0 - 2.0 % Absolute Neut # 10.7 (H) 1.8 - 7.0 10*3/uL Absolute Lymph # 2.4 1.0 - 4.3 10*3/uL Absolute Pierce # 1.4 (H) 0.0 - 0.8 10*3/uL Absolute Eos # 0.3 0.0 - 0.5 10*3/uL Absolute Baso # 0.1 0.0 - 0.2 10*3/uL Comprehensive Metabolic Panel Result Value Ref Range Sodium 139 135 - 145 mmol/L Potassium 4.2 3.5 - 5.1 mmol/L Chloride 107 98 - 107 mmol/L CO2 (more content not included)... Normal [facility] HCG Qualitative, SerumOrdere d By: Cassie Stewart on 06-16-2021 hCG Qual Negative [facility] Work Phone: Comment on above: Reference Range: NEG ATIVE Effective 01/08/2020, the reference interval for the qualitative test has been updated. This test detects hCG at concentrations of 10 mIU/L or greater in serum. Test Performed by [facility], [address] [place], [place] [address] [facility] Work Phone: [employer] Work Phone: Hemogram (CBC) w/Auto DiffOr dered By: Cassie Stewart on 06-16-2021 Absolute Baso # 0.1 10*3/uL 0.0 - 0.2 10*3/uL [facility] Work Phone: [phone] Absolute Neut # 10.7 10*3/uL High 1.8 - 7.0 10*3/uL [facility] Work Phone: [phone] Basophils/100 WBC (Bld) 0.3 % 0.0 - 2.0 % [facility] Work Phone: [phone] Eosinophils (Bld) [#/Vol] 0.3 10*3/uL 0.0 - 0.5 10*3/uL [facility] Work Phone: [phone] Eosinophils/100 WBC (Bld) 2.0 % 1.0 - 6.0 % [facility] Work Phone: [phone] Granulocytes/100 WBC (Bld) 71.8 % 40.0 - 80.0 % [employer] Work Phone: [phone] Hematocrit (Bld) [Volume fraction] 38.7 % 35.0 - 47.0 % [employer] Work Phone: [phone] Hemoglobin.gastrointest inal spec 1 Ql (Stl) 13.1 g/dL 11.7 - 16.0 g/dL [employer] Work Phone: [phone] Interpretation and review of laboratory results Abnormal [facility] Work Phone: [phone] Lymphocytes (Bld) [#/Vol] 2.4 10*3/uL 1.0 - 4.3 10*3/uL [facility] Work Phone: [phone] Lymphocytes/100 WBC (Bld) 16.3 % Low 20.0 - 40.0 % [facility] Work Phone: [phone] MCH (RBC) [Entitic mass] 27.4 pg 26.0 - 34.0 pg [facility] Work Phone: [phone] MCHC (RBC) [Mass/Vol] 33.8 % 32.0 - 36.0 % [facility] Work Phone: [phone] MCV (RBC) [Entitic vol] 81.1 fL 79.0 - 98.0 fL [facility] Work Phone: [phone] Monocytes (Bld) [#/Vol] 1.4 10*3/uL High 0.0 - 0.8 10*3/uL [facility] Work Phone: [phone] Monocytes/100 WBC (Bld) 9.6 % 2.0 - 10.0 % [facility] Work Phone: [phone] Platelet distribution width (Bld) [Ratio] 15.1 % High 11.5 - 14.5 % [facility] Work Phone: [phone] Platelet mean volume (Bld) [Entitic vol] 7.0 fL Low 7.4 - 10.4 fL [facility] Work Phone: [phone] Platelets (Bld) [#/Vol] 369 10*3/uL 140 - 440 10*3/uL [facility] Work Phone: [phone] RBC (Bld) [#/Vol] 4.77 10*6/uL 3.80 - 5.2 0 10*6/uL [facility] Work Phone: [phone] WBC (Bld) [#/Vol] 14.9 10*3/uL High 3.6 - 10.7 10*3/uL [facility] Work Phone: [phone] Test Performed by [facility], [address] [place], [place] [address] [facility] Work Phone: [phone] [facility] Work Phone: [phone] Hemogram w/ Autodiffon 06-16 Abs Baso Cnt 0.1 10*3/uL Normal 0.0-0.2 [facility] [employer] Comment on above: Performed By: #### C MP3, LIPA4, QWAL2, HEMDF #### [facility] [address] [place] [address] Abs Neutrophile Cnt 10.7 10*3/uL High 1.8-7.0 [facility] Comment on above: Performed By: #### C MP3, LIPA4, QWAL2, HEMDF #### [facility] [address] [place] [address] Basophils/100 WBC (Bld) 0.3 % Normal 0.0-2.0 S [facility] Comment on above: Performed By: #### C MP3, LIPA4, QWAL2, HEMDF #### [facility] [address] [place] [address] Eosinophils (Bld) [#/Vol] 0.3 10*3/uL Normal 0.0-0.5 [facility] Comment on above: Performed By: #### C MP3, LIPA4, QWAL2, HEMDF #### [facility] [address] [place] [address] Eosinophils/100 WBC (Bld) 2.0 % Normal 1.0-6.0 [facility] Comment on above: Performed By: #### C MP3, LIPA4, QWAL2, HEMDF #### [facility] [address] [place] [address] Erythrocyte distribution width (RBC) [Ratio] 15.1 % High 11.5-14.5 [facility] Comment on above: Performed By: #### C MP3, LIPA4, QWAL2, HEMDF #### [facility] [address] [place] [address] Granulocytes/100 WBC (Bld) 71.8 % Normal 40.0-80.0 [facility] Comment on above: Performed By: #### C MP3, LIPA4, QWAL2, HEMDF #### [facility] [address] [place] [address] Hematocrit (Bld) [Volume fraction] 38.7 % Normal 35.0-47.0 [facility] Comment on above: Performed By: #### C MP3, LIPA4, QWAL2, HEMDF #### [facility] [address] [place] [address] Hemoglobin (Bld) [Mass/Vol] 13.1 g/dL Normal 11.7-16.0 [facility] Comment on above: Performed By: #### C MP3, LIPA4, QWAL2, HEMDF #### [facility] [address] [place] [address] Lymphocytes (Bld) [#/Vol] 2.4 10*3/uL Normal 1.0-4.3 [facility] Comment on above: Performed By: #### C MP3, LIPA4, QWAL2, HEMDF #### [facility] [address] [place] [address] Lymphocytes/100 WBC (Bld) 16.3 % Low 20.0-40.0 [facility] Comment on above: Performed By: #### C MP3, LIPA4, QWAL2, HEMDF #### [facility] [address] [place] [address] MCH (RBC) [Entitic mass] 27.4 pg Normal 26.0-34.0 [facility] Comment on above: Performed By: #### C MP3, LIPA4, QWAL2, HEMDF #### [facility] [address] [place] [address] MCHC 33.8 % Normal 32.0-36.0 [facility] Comment on above: Performed By: #### C MP3, LIPA4, QWAL2, HEMDF #### [facility] [address] [place] [address] MCV (RBC) [Entitic vol] 81.1 fL Normal 79.0-98.0 S [facility] Comment on above: Performed By: #### C MP3, LIPA4, QWAL2, HEMDF #### [facility] [address] [place] [address] Monocytes (Bld) [#/Vol] 1.4 10*3/uL High 0.0-0.8 [facility] Comment on above: Performed By: #### C MP3, LIPA4, QWAL2, HEMDF #### [facility] [address] [place] [address] Monocytes/100 WBC (Bld) 9.6 % Normal 2.0-10.0 S [facility] Comment on above: Performed By: #### C MP3, LIPA4, QWAL2, HEMDF #### [facility] [address] [place] [address] Platelet mean volume (Bld) [Entitic vol] 7.0 fL Low 7.4-10.4 [facility] Comment on above: Performed By: #### C MP3, LIPA4, QWAL2, HEMDF #### [facility] [address] [place] [address] Platelets (Bld) [#/Vol] 369 10*3/uL Normal 140-440 [facility] Comment on above: Performed By: #### C MP3, LIPA4, QWAL2, HEMDF #### [facility] [address] [place] [address] RBC (Bld) [#/Vol] 4.77 10*6/uL Normal 3.80-5.20 [facility] Comment on above: Performed By: #### C MP3, LIPA4, QWAL2, HEMDF #### [facility] [address] [place] [address] WBC (Bld) [#/Vol] 14.9 10*3/uL High 3.6-10.7 [facility] Comment on above: Performed By: #### C MP3, LIPA4, QWAL2, HEMDF #### [facility] [address] [place] [address] Lipaseon 06-16-2021 Lipase [Catalytic activity/Vol] 82 U/L Normal 23-300 [facility] Comment on above: Performed By: #### C MP3, LIPA4, QWAL2, HEMDF #### [facility] [address] [place] [address] LipaseOrdered By: Cassie garcia on 06-16-2021 Lipase [Catalytic activity/Vol] 82 U/L 23 - 300 U/L [facility] Work Phone: No Panel InformationOrdered By: Cassie Stewart on 06-16-2021 Test Performed by [facility], [address] [place] [address] [facility] Work Phone: [facility] Work Phone: US NON OB TRANSVAGINALOrdere d By: Ziggy Salazar on 06-16-2021 Patient Name: MATTIE RODRIGUEZ Ultrasound ACCESSION EXAM DATE/TIME PROCEDURE ORDERING PROVIDER [id number] 06/16/2021 09:23 EDT US Transvaginal MD KATIE, ZIGGY Batista CPT code 84636 Reason For Exam (US Transvaginal) Lower abdominal pain left lower quadrant. CT shows enlarged ovarian cyst, please evaluate cyst evaluate flow Report CLINICAL INFORMATION: Left pelvic pain. Enlarged left ovary with cyst on CT pelvis examination. Transvaginal pelvic ultrasound with spectral color Doppler: The uterus is within normal limits in size and echogenicity measuring 6.4 x 4.3 x 3.2 cm (length, AP, width). The endometrial stripe measures 10 mm which is within normal limits. The left ovary is enlarged measuring 4.6 x 4.6 x 5.1 cm and contains a mixed echogenicity 4.2 x 3.8 x 3 cm lesion possibly a hemorrhagic or other debris-containing cyst. A cystic ovarian neoplasm is not excluded on the basis of this examination. The right ovary is normal in size and echogenicity measuring 3.7 x 2.5 x 2.3 cm. Normal spectral color blood flow is demonstrated to both ovaries. No other cystic, solid or complex adnexal masses are identified. There is a small amount nonspecific free fluid about the left ovary. IMPRESSION: 1. Enlarged left ovary containing a complex mixed echogenicity 4.2 cm lesion possibly a hemorrhagic or debris-containing cyst. A cystic ovarian neoplasm is not excluded on the basis of this examination. This could be the etiology of the patient's pain. A repeat examination following two or three menstrual cycles is suggested. 2. Small amount nonspecific free fluid adjacent to the left ovary. 3. No other significant sonographic abnormality. Report Dictated on --- Final --- Dictating Physician: MD MICHELLE HARLAN Signed Date and Time: 06/16/2021 9:09 am Signed by: MD MICHELLE HARLAN Transcribed Date and Time: 06/16/2021 9:23 [facility] Work Phone: Nicolas, [facility] Incoming Radiology Results From [facility] - 06/16/2021 9:24 AM EDT Patient Name: MATTIE RODRIGUEZ Ultrasound ACCESSION EXAM DATE/TIME PROCEDURE ORDERING PROVIDER [id number] 06/16/2021 09:23 EDT US Transvaginal MD KATIE, ZIGGY Batista CPT code 21901 Reason For Exam (US Transvaginal) Lower abdominal pain left lower quadrant. CT shows enlarged ovarian cyst, please evaluate cyst evaluate flow Report CLINICAL INFORMATION: Left pelvic pain. Enlarged left ovary with cyst on CT pelvis examination. Transvaginal pelvic ultrasound with spectral color Doppler: The uterus is within normal limits in size and echogenicity measuring 6.4 x 4.3 x 3.2 cm (length, AP, width). The endometrial stripe measures 10 mm which is within normal limits. The left ovary is enlarged measuring 4.6 x 4.6 x 5.1 cm and contains a mixed echogenicity 4.2 x 3.8 x 3 cm lesion possibly a hemorrhagic or other debris-containing cyst. A cystic ovarian neoplasm is not excluded on the basis of this examination. The right ovary is normal in size and echogenicity measuring 3.7 x 2.5 x 2.3 cm. Normal spectral color blood flow is demonstrated to both ovaries. No other cystic, solid or complex adnexal masses are identified. There is a small amount nonspecific free fluid about the left ovary. IMPRESSION: 1. Enlarged left ovary containing a complex mixed echogenicity 4.2 cm lesion possibly a hemorrhagic or debris-containing cyst. A cystic ovarian neoplasm is not excluded on the basis of this examination. This could be the etiology of the patient's pain. A repeat examination following two or three menstrual cycles is suggested. 2. Small amount nonspecific free fluid adjacent to the left ovary. 3. No other significant sonographic abnormality. Report Dictated on --- Final --- Dictating Physician: MD MICHELLE HARLAN Signed Date and Time: 06/16/2021 9:09 am Signed by: MD MICHELLE HARLAN Transcribed Date and Time: 06/16/2021 9:23 [facility] Work Phone: [facility] Work Phone: US Transvaginalon 06-16-2021 US Transvaginal Patient Name: MATTIE RODRIGUEZ Ultrasound ACCESSION EXAM DATE/TIME PROCEDURE ORDERING PROVIDER [id number] 06/16/2021 09:23 EDT US Transvaginal MD SALAZAR GREGORY M CPT code 74629 Reason For Exam (US Transvaginal) Lower abdominal pain left lower quadrant. CT shows enlarged ovarian cyst, please evaluate cyst evaluate flow Report CLINICAL INFORMATION: Left pelvic pain. Enlarged left ovary with cyst on CT pelvis examination. Transvaginal pelvic ultrasound with spectral color Doppler: The uterus is within normal limits in size and echogenicity measuring 6.4 x 4.3 x 3.2 cm (length, AP, width). The endometrial stripe measures 10 mm which is within normal limits. The left ovary is enlarged measuring 4.6 x 4.6 x 5.1 cm and contains a mixed echogenicity 4.2 x 3.8 x 3 cm lesion possibly a hemorrhagic or other debris-containing cyst. A cystic ovarian neoplasm is not excluded on the basis of this examination. The right ovary is normal in size and echogenicity measuring 3.7 x 2.5 x 2.3 cm. Normal spectral color blood flow is demonstrated to both ovaries. No other cystic, solid or complex adnexal masses are identified. There is a small amount nonspecific free fluid about the left ovary. IMPRESSION: 1. Enlarged left ovary containing a complex mixed echogenicity 4.2 cm lesion possibly a hemorrhagic or debris-containing cyst. A cystic ovarian neoplasm is not excluded on the basis of this examination. This could be the etiology of the patient's pain. A repeat examination following two or three menstrual cycles is suggested. 2. Small amount nonspecific free fluid adjacent to the left ovary. 3. No other significant sonographic abnormality. Report Dictated on Final Dictating Physician: MD MICHELLE HARLAN Signed Date and Time: 06/16/2021 9:09 am Signed by: MD MICHELLE HARLAN Transcribed Date and Time: 06/16/2021 9:23 Normal [facility] UrinalysisOrdered By: Veronica Stewart on 06-16-2021 Appearance (U) Turbid Abnormal Clear [facility] Work Phone: Comment on above: . Bilirubin Urine Negative Negative mg/dL [employer] Work Phone: Comment on above: . Color (U) Light-Yellow Lt. Yellow NA [facility] Work Phone: Comment on above: . Glucose, Ur Normal Normal (<70) mg/dL [facility] Work Phone: Comment on above: . Interpretation and review of laboratory results Abnormal [facility] Work Phone: Ketones Ql (U) Negative Negative mg/dL [facility] Work Phone: [phone] Comment on above: . LEUKOCYTES, UA Negative Negative Ivan/uL [facility] Work Phone: [phone] Comment on above: . Nitrite, Urine Negative Negative NA [facility] Work Phone: [phone] Comment on above: . Occult Blood,Urine Negative Negative mg/dL [facility] Work Phone: [phone] Comment on above: . pH (U) 6.0 [pH] [facility] Work Phone: [phone] Comment on above: . Specific [place], Urine [address] [facility] [facility] Work Phone: [phone] Comment on above: . Total Protein, Urine Negative Negativ e mg/dL [facility] Work Phone: Comment on above: . Urobilinogen, Urine Normal Normal ( 0-1) mg/dL [facility] Work Phone: Comment on above: . Test Performed by [facility] [employer], [address] [place], [place] [address] [facility] Work Phone: [phone] [facility] Work Phone: hCG Qual [place] 06-16-2021 hCG Qual Preg Negative Normal [facility] [employer] Comment on above: Result Comment: Refe rence Range: NEGATIVE Effective 01/08/2020, the reference interval for the qualitative test has been updated. This test detects hCG at concentrations of 10 mIU/L or greater in serum. Performed By: #### C MP3, LIPA4, QWAL2, HEMDF #### [facility] [employer] [address] [place] [address] Vital Signs Date Time Vital Sign Value Performing Clinician Facility 05-24-2025 14:10-0400 Body temperature 98.1 [degF] Dr. Shy Lozano DO Work Phone: [facility] 05-24-2025 14:10-0400 Diastolic blood pressure 82 mm[Hg] Dr. Shy Lozano DO Work Phone: [facility] 05-24-2025 14:10-0400 Heart rate 69 /min Dr. Shy Lozano DO Work Phone: [facility] 05-24-2025 14:10-0400 Respiratory rate 18 /min Dr. Shy Lozano DO Work Phone: [phone] [place] [address] 05-24-2025 14:10-0400 SaO2% (BldA) [Mass fraction] 98 % Dr. Shy Lozano DO Work Phone: [phone] [place] [address] 05-24-2025 14:10-0400 Systolic blood pressure 130 mm[Hg] Dr. Shy Lozano DO Work Phone: [phone] [place] [address] 05-24-2025 09:25-0400 Body height 165.[address] Shy Lozano DO Work Phone: [phone] [place] [address] 05-24-2025 09:25-0400 Body mass index (BMI) [Ratio] 24.6 kg/m2 Dr. Shy Lozano DO Work Phone: [phone] [place] [address] 05-24-2025 09:25-0400 Body weight 67.[address] Shy Lozano DO Work Phone: [facility] 01-31-2023 23:17-0400 Body mass index (BMI) [Ratio] 27.44 kg/m2 Waldo Gombash DO Work Phone: [facility] [employer] 01-31-2023 23:17-0400 Body temperature 98.2 [degF] Waldo Gombash DO Work Phone: [facility] [employer] 01-31-2023 23:17-0400 Body weight 77.11 kg Waldo Gombash DO Work Phone: [facility] [employer] 01-31-2023 23:17-0400 Diastolic blood pressure 93 mm[Hg] Waldo Gombash DO Work Phone: [facility] [employer] 01-31-2023 23:17-0400 Heart rate 79 /min Awldo Gombash DO Work Phone: [facility] [employer] 01-31-2023 23:17-0400 Respiratory rate 16 /min Waldo Gombash DO Work Phone: [facility] [employer] 01-31-2023 23:17-0400 SaO2% (BldA) [Mass fraction] 100 % Waldo Gombash DO Work Phone: [facility] [employer] 01-31-2023 23:17-0400 Systolic blood pressure 154 mm[Hg] Waldo Gombash DO Work Phone: [facility] 06-26-2022 10:51-0400 Body height 167.6 cm Marge Higgins SPECIAL NEEDS TUTOR.SLASH TRIMMER Work Phone: [facility] 06-26-2022 10:51-0400 Body temperature 97.39 [degF] Marge Higgins SPECIAL NEEDS TUTOR.SLASH TRIMMER Work Phone: [facility] 06-26-2022 10:51-0400 Body weight 83.92 kg Marge Higgins SPECIAL NEEDS TUTOR.SLASH TRIMMER Work Phone: [facility] 06-26-2022 10:51-0400 Diastolic blood pressure 70 mm[Hg] Marge Higgins SPECIAL NEEDS TUTOR.SLASH TRIMMER Work Phone: [facility] 06-26-2022 10:51-0400 Heart rate 68 /min Marge Higgins SPECIAL NEEDS TUTOR.SLASH TRIMMER Work Phone: [facility] 06-26-2022 10:51-0400 Systolic blood pressure 114 mm[Hg] Marge Higgins SPECIAL NEEDS TUTOR.SLASH TRIMMER Work Phone: [facility] 05-19-2022 14:16-0400 Body height 167.6 cm Lucas Fraire MD Work Phone: [facility] 05-19-2022 14:16-0400 Body mass index (BMI) [Ratio] 23.4 kg/m2 Lucas Fraire MD Work Phone: [facility] 05-19-2022 14:16-0400 Body temperature 98.8 [degF] Lucas Fraire MD Work Phone: [facility] 05-19-2022 14:16-0400 Body weight 65.77 kg Lucas Fraire MD Work Phone: [facility] 05-19-2022 14:16-0400 Diastolic blood pressure 75 mm[Hg] Lucas Fraire MD Work Phone: [facility] 05-19-2022 14:16-0400 Heart rate 76 /min Lucas Fraire MD Work Phone: [facility] 05-19-2022 14:16-0400 Respiratory rate 16 /min Lucas Fraire MD Work Phone: [facility] 05-19-2022 14:16-0400 SaO2% (BldA) [Mass fraction] 100 % Lucas Fraire MD Work Phone: [facility] 05-19-2022 14:16-0400 Systolic blood pressure 138 mm[Hg] Lucas Fraire MD Work Phone: [facility] 05-06-2022 17:45-0400 Body height 167.6 cm Pietro Oleary MD Work Phone: [facility] 05-06-2022 17:45-0400 Body mass index (BMI) [Percentile] Per age and sex 83.5 % Pietro Oleary MD Work Phone: [facility] 05-06-2022 17:45-0400 Body mass index (BMI) [Ratio] 25.82 kg/m2 Pietro Oleary MD Work Phone: [facility] 05-06-2022 17:45-0400 Body temperature 98.01 [degF] Pietro Oleary MD Work Phone: [facility] 05-06-2022 17:45-0400 Body weight 72.58 kg Pietro Oleary MD Work Phone: [facility] 05-06-2022 17:45-0400 Diastolic blood pressure 91 mm[Hg] Pietro Oleary MD Work Phone: [facility] 05-06-2022 17:45-0400 Heart rate 70 /min Pietro Oleary MD Work Phone: [facility] 05-06-2022 17:45-0400 Respiratory rate 16 /min Pietro Oleary MD Work Phone: [facility] 05-06-2022 17:45-0400 SaO2% (BldA) [Mass fraction] 100 % Pietro Oleary MD Work Phone: [facility] 05-06-2022 17:45-0400 Systolic blood pressure 122 mm[Hg] Pietro Oleary MD Work Phone: [facility] 05-02-2022 15:04-0400 Body height 167.6 cm Amos Slabaugh PA-C Work Phone: [facility] 05-02-2022 15:04-0400 Body mass index (BMI) [Percentile] Per age and sex 91.42 % Amos Slabaugh PA-C Work Phone: [facility] 05-02-2022 15:04-0400 Body temperature 98.01 [degF] Amos Slabaugh PA-C Work Phone: [facility] 05-02-2022 15:04-0400 Body weight 80.2 kg Amos Slabaugh PA-C Work Phone: [facility] 05-02-2022 15:04-0400 Diastolic blood pressure 84 mm[Hg] Amos Slabaugh PA-C Work Phone: [facility] 05-02-2022 15:04-0400 Heart rate 84 /min Amos Slabaugh PA-C Work Phone: [facility] 05-02-2022 15:04-0400 Respiratory rate 16 /min Amos Slabaugh PA-C Work Phone: [facility] 05-02-2022 15:04-0400 SaO2% (BldA) [Mass fraction] 99 % Amos Slabaugh PA-C Work Phone: [facility] 05-02-2022 15:04-0400 Systolic blood pressure 125 mm[Hg] Amos Wright PA-C Work Phone: [facility] 10-23-2021 08:54-0500 Body height 165.1 cm Denzel Nesheim DO Work Phone: [facility] 10-23-2021 08:54-0500 Body mass index (BMI) [Percentile] Per age and sex 91.48 % Denzel Nesheim DO Work Phone: [facility] 10-23-2021 08:54-0500 Body mass index (BMI) [Ratio] 28.29 kg/m2 Denzel Nesheim DO Work Phone: [facility] 10-23-2021 08:54-0500 Body temperature 98.2 [degF] Denzel Nesheim DO Work Phone: [facility] 10-23-2021 08:54-0500 Body weight 77.11 kg Denzel Nesheim DO Work Phone: [facility] 10-23-2021 08:54-0500 Diastolic blood pressure 93 mm[Hg] Denzel Nesheim DO Work Phone: [facility] 10-23-2021 08:54-0500 Heart rate 87 /min Denzel Nesheim DO Work Phone: [facility] 10-23-2021 08:54-0500 Respiratory rate 14 /min Denzel Nesheim DO Work Phone: [facility] 10-23-2021 08:54-0500 SaO2% (BldA) [Mass fraction] 100 % Denzel Nesheim DO Work Phone: [facility] 10-23-2021 08:54-0500 Systolic blood pressure 145 mm[Hg] Denzel Nesheim DO Work Phone: [facility] 09-26-2021 21:52-0500 Diastolic blood pressure 73 mm[Hg] Mariama Jose Work Phone: [facility] 09-26-2021 21:52-0500 Heart rate 79 /min Mariama Jose Work Phone: [facility] 09-26-2021 21:52-0500 Respiratory rate 16 /min Mariama Jose Work Phone: [employer] 09-26-2021 21:52-0500 SaO2% (BldA) [Mass fraction] 100 % Mariama Jose Work Phone: [employer] 09-26-2021 21:52-0500 Systolic blood pressure 132 mm[Hg] Mari[facility] Jose [facility] 09-26-2021 20:27-0500 Body temperature 98.4 [degF] Mariama Jose Work Phone: [employer] 06-16-2021 10:49-0400 Diastolic blood pressure 84 mm[Hg] Cassie Stewart MD Work Phone: [facility] Work Phone: 06-16-2021 10:49-0400 Heart rate 80 /min Cassie Stewart MD Work Phone: [facility] Work Phone: 06-16-2021 10:49-0400 Respiratory rate 16 /min Cassie Stewart MD Work Phone: [facility] Work Phone: 06-16-2021 10:49-0400 SaO2% (BldA) [Mass fraction] 100 % Cassie Stewart MD Work Phone: [facility] Work Phone: 06-16-2021 10:49-0400 Systolic blood pressure 126 mm[Hg] Cassie Stewart MD Work Phone: [facility] Work Phone: 06-16-2021 05:11-0400 Body temperature 97.3 [degF] Cassie Stewart MD Work Phone: [facility] Work Phone: Encounters Encounter Date Encounter Type Care Provider Facility Start: 05-24-2025 End: 05-24-2025 Emergency department patient visit Dr. Shy Lozano DO Work Phone: -Emergency Department Work Phone: Start: 02-02-2025 End: 02-02-2025 Emergency department patient visit NONE PHYSICIAN Facility:[facility] Start: 03-09-2024 Emergency department patient visit Facility:[facility] Start: 02-01-2023 End: 02-01-2023 [facility] Start: 01-31-2023 End: 02-01-2023 Emergency department patient visit Waldo Miguel Work Phone: [facility] Comment on above: Food impaction of es ophagus, initial encounter (Primary Dx) Start: 06-26-2022 End: 06-26-2022 Patient encounter procedure Marge Higgins APRN.CNP Work Phone: [facility] Comment on above: Viral URI with cough (Primary Dx); Pharyngitis, unspecified etiology; Headache, unspecified headache type Start: 05-19-2022 End: 05-19-2022 Emergency department patient visit Lucas Fraire MD Work Phone: [facility] Start: 05-10-2022 Telephone encounter Kenneth Salazar PA-C Work Phone: [facility] Comment on above: Results Start: 05-07-2022 Orders Only Kenneth montoya PA-C Work Phone: [facility] Comment on above: Vitamin D deficiency (Primary Dx) Start: 05-06-2022 End: 05-06-2022 Emergency department patient visit Pietro Oleary MD Work Phone: [facility] Comment on above: Contusion of right w rist, initial encounter (Primary Dx); Strain of neck muscle, initial encounter Start: 05-04-2022 Telephone encounter Flora lópez PA-C Work Phone: [facility] Comment on above: Results Start: 05-02-2022 End: 05-02-2022 Patient encounter procedure Amos Wright PA-C Work Phone: [facility] Comment on above: Nausea (Primary Dx); Irregular menses; Leukocytes in urine; Urinary frequency; Encounter to establish care Start: 10-23-2021 End: 10-23-2021 Emergency department patient visit Denzel Garcia DO Work Phone: [facility] Comment on above: Abdominal pain, left lower quadrant (Primary Dx) Start: 09-26-2021 End: 09-26-2021 Emergency department patient visit Mariama Garcia Work Phone: [facility] Comment on above: Depression, unspecif ied depression type (Primary Dx); Suicidal thoughts; Deliberate self-cutting Start: 08-07-2021 End: 08-07-2021 Subsequent hospital visit by physician Richard Jimenez MD Work Phone: [facility] Comment on above: Mass of joint of rig ht wrist Start: 07-11-2021 End: 07-11-2021 Subsequent hospital visit by physician [facility] Comment on above: Mass of joint of rig ht wrist Start: 06-16-2021 End: 06-16-2021 Emergency department patient visit Cassie Stewart MD Work Phone: [facility] Comment on above: Cyst of left ovary ( Primary Dx) Procedures Date Procedure Procedure Detail Performing Clinician Start: 05-24-2025 End: 05-24-2025 Polymer[address] chain reaction analysis Dr. Shy Lozano DO Work Phone: Start: 05-24-2025 [address]omonas [address] s detection Dr. Shy Lozano DO Work Phone: Start: 05-24-[address] Shy Lozano DO Work Phone: Start: 05-24-[address] Leander Lozano DO Work Phone: Start: 05-24-2025 Urnls dip stick/tabl et reagent auto microscopy Dr. Shy Lozano DO Work Phone: Start: 06-26-2022 STREP A MOLECULAR (POC) [facility] Provider Start: 05-06-2022 Radex spine cervical 2 or 3 views Pietro Oleary MD Work Phone: Start: 05-02-2022 End: 05-02-2022 Gluc bld gluc mntr dev cleared fda spec home use Amos Richardsonkarlosrenetta PA-Bridg Work Phone: Start: 05-02-2022 End: 05-02-2022 Urnls dip stick/tablet rgnt auto w/o microscopy Amos Richardsonrosa PA-Bridg Work Phone: Start: 10-23-2021 ADD ON LAB TEST Denzel G Nesheim DO Work Phone: Start: 10-23-2021 Urnls dip stick/tabl et rgnt auto w/o microscopy Denzel G Nesheim DO Work Phone: Start: 08-07-2021 Mri any jt upper ext remity w/o contrast matrl Richard Jimenez MD Work Phone: Start: 07-11-2021 Us compl joint r-t w /image documentation Richard Jimenez MD Work Phone: Start: 06-16-2021 Us transvaginal Ziggy Salazar MD Work Phone: Start: 06-16-2021 Computed tomography of abdomen and pelvis with contrast Cassie Stewart MD Work Phone: Start: 06-16-2021 Urnls dip stick/tabl et rgnt auto w/o microscopy Cassie Stewart MD Work Phone: Start: 06-16-2021 Comprehensive metabo lic panel Cassie Stewart MD Work Phone: Plan of Treatment Date Care Activity Detail Author Start: 2053 Zoster Vaccines (1 of 2) Zoste r Vaccines (1 of 2) [employer] [facility] Start: 06-01-2025 DTaP/Tdap/Td vaccine (7 - Td or Tdap) DTaP/Tdap/Td vaccine (7 - Td or Tdap) [facility] Start: 06-01-2025 DTaP/Tdap/Td Vaccine s (7 - Td or Tdap) DTaP/Tdap/Td Vaccines (7 - Td or Tdap) [facility] Start: 06-01-2025 Urine microalbumin profile DTAP,TDAP,TD (7 - Td or Tdap) [facility] Start: 05-24-2025 [facility] Start: 06-28-2023 Influenza vaccination Influenz a Vaccine (Season Ended) [facility] Start: 05-04-2023 COVID-19 VACCINE (#1) COVID-19 VACCI NE (#1) [facility] Comment on above: Postponed from 07/27 (Declined at this time) Start: 07-19-2022 CHLAMYDIA SCREENING (18-24) CHLAMYDIA SCREENING (18-24) [facility] Start: 07-19-2022 GC (GONORRHEA) SCREE AMIRA (18-24) GC (GONORRHEA) SCREENING (18-24) [facility] Start: 07-19-2022 Screening for Chlamy terrie trachomatis Chlamydia screen [facility] Start: 06-28-2022 Influenza vaccination [facility] Start: 2022 Urine microalbumin profile DTAP,TDAP,TD (1 - Tdap) [facility] Start: 07-19-2021 End: 07-19-2021 Patient encounter procedure [facility] [employer] Start: 06-28-2021 Influenza vaccination Flu vaccine (# 1) [facility] Start: 06-22-2021 End: 06-22-2021 Patient encounter procedure 06/22/2021 Office Visit Plastic Surgery Richard Jimenez MD [address] [place] [address] [phone] [facility] [place] Start: 2021 CHLAMYDIA SCREENING (18-24) CHLAMYDIA SCREENING (18-24) [facility] Start: 2021 GC (GONORRHEA) SCREE AMIRA (18-24) GC (GONORRHEA) SCREENING (18-24) [facility] Start: 2021 HEPATITIS C [facility]CRE[facility] Start: 2021 Hepatitis C screening Hepatitis C Sc reening [facility] Start: 2021 HIV SCREENING HIV SCREENING [facility] Start: 2019 Meningococcal (ACWY) vaccine (1 - 2-dose series) Meningococcal (ACWY) vaccine (1 - 2-dose series) [facility] Start: 2019 Screening for Chlamy terrie trachomatis Chlamydia screen [facility] Work Phone: Start: 2018 HIV screening HIV screen [facility] Start: 2017 PEDS TO ADULT TRANSI TION ANNUAL ASSESSMENT PEDS TO ADULT TRANSITION ANNUAL ASSESSMENT [facility] Start: 2015 Adult depression screening assessment DEPRESSION SCREENING [facility] Start: 2015 COVID-19 Vaccine (1) COVID-19 Vaccin e (1) [facility] Work Phone: Start: 2015 Depression Screen Depression Screen [facility] Start: 2015 PEDS TO ADULT TRANSI TION INITIAL DISCUSSION PEDS TO ADULT TRANSITION INITIAL DISCUSSION [facility] Start: 2014 HPV vaccine (1 - 2-d ose series) HPV vaccine (1 - 2-dose series) [facility] Start: 2013 MENINGOCOCCAL B: Consider based on risk (1 of 2 - Risk Bexsero 2-dose series) MENINGOCOCCAL B: Consider based on risk (1 of 2 - Risk Bexsero 2-dose series) [facility] Start: 2010 DTaP/Tdap/Td vaccine (1 - Tdap) DTaP/Tdap/Td vaccine (1 - Tdap) [facility] Start: 2009 PNEUMOCOCCAL (1 - PCV) PNEUMOCOCCAL (1 - PCV) [facility] Start: 2009 Pneumococcal 0-64 ye ars Vaccine (1 - PCV) Pneumococcal 0-64 years Vaccine (1 - PCV) [facility] Start: 2009 Pneumococcal Vaccine : Pediatrics (0 to 5 Years) and At-Risk Patients (6 to 64 Years) (1 - PCV) Pneumococcal Vaccine: Pediatrics (0 to 5 Years) and At-Risk Patients (6 to 64 Years) (1 - PCV) [facility] Start: 01-26-2008 COVID-19 Vaccine (1) COVID-19 Vaccin e (1) [facility] Start: 08-17-2004 Hepatitis B vaccine (3 of 3 - 3-dose primary series) Hepatitis B vaccine (3 of 3 - 3-dose primary series) [facility] Start: 01-26-2004 Hepatitis A vaccine (1 of 2 - 2-dose series) Hepatitis A vaccine (1 of 2 - 2-dose series) [facility] Start: 01-26-2004 Measles,Mumps,Rubell a (MMR) vaccine (1 of 2 - Standard series) Measles,Mumps,Rubella (MMR) vaccine (1 of 2 - Standard series) [facility] Start: 01-26-2004 Varicella vaccine (1 of 2 - 2-dose childhood series) Varicella vaccine (1 of 2 - 2-dose childhood series) [facility] Start: 2003 COVID-19 VACCINE (#1) COVID-19 VACCI NE (#1) [facility] Start: 2003 Hepatitis B vaccine (1 of 3 - 3-dose primary series) Hepatitis B vaccine (1 of 3 - 3-dose primary series) [facility] Start: 2003 Hepatitis C screening Hepatitis C sc reen [facility] Start: 2003 HIV screening [facility] Screening [facility] Start: 2003 Lipid panel Lipid Panel [facility] Bacteria identified in Urine by Culture URINE CULTURE Microbiology Today Nausea Ordered: 05/02/2022 [facility] Work Phone: Comment on above: Ordered: 05/02/2022 End: 05-19-2022 C. Trachomatis / N. Gonorrhoeae, DNA Probe C. Trachomatis / N. Gonorrhoeae, DNA Probe Microbiology STAT One Time for 1 Occurrences starting 05/19/2022 until 05/19/2022 [facility] Work Phone: Comment on above: One Time for 1 Occur rences starting 05/19/2022 until 05/19/2022 End: 10-23-2021 Culture, Urine [facility] Work Phone: Comment on above: One Time for 1 Occur rences starting 10/23/2021 until 10/23/2021 End: 05-19-2022 [facility] Urine Qual Preg [facility] Urine Qual Preg Lab STAT One Time for 1 Occurrences starting 05/19/2022 until 05/19/2022 [facility] Work Phone: Comment on above: One Time for 1 Nahomi gr starting 05/19/2022 until 05/19/2022 Influenza virus A an d B RNA and SARS-CoV-2 (COVID-19) N gene panel - Respiratory specimen by HYUN with probe detection COVID WITH FLUA+B, ROUTINE Microbiology Routine Viral URI with cough Pharyngitis, unspecified etiology Headache, unspecified headache type Ordered: 06/26/2022 [facility] Work Phone: Comment on above: Ordered: 06/26/2022 Patient Education ED Anemia, Typ e Not Specified (Adult) ED Chlamydia, Treated (Female) ED Bacterial Vaginosis (BV) [facility] Work Phone: [facility] Immunizations Immunization Date Immunization Notes Care Provider Jyoti an 09-29-2019 meningococcal polysaccharide (groups A, C, Y and W-135) diphtheria toxoid conjugate vaccine (MCV4P) Kenneth Salazar PA-C Work Phone: [facility] 06-12-2016 Human Papillomavirus 9-valent vaccine Kenneth Salazar PA-C Work Phone: [facility] 02-16-2016 Human Papillomavirus 9-valent vaccine Kenneth Salazar PA-C Work Phone: [facility] 09-13-2015 human papilloma viru s vaccine, quadrivalent Kenneth Salazar PA-C Work Phone: [facility] 06-01-2015 meningococcal oligosaccharide (groups A, C, Y and W-135) diphtheria toxoid conjugate vaccine (MCV4O) Kenneth Salazar PA-C Work Phone: [facility] 06-01-2015 tetanus toxoid, redu ed diphtheria toxoid, and acellular pertussis vaccine, adsorbed Kenneth Salazar PA-C Work Phone: [facility] 08-18-2013 influenza virus vacc ine, live, attenuated, for intranasal use Kenneth Salazar PA-C Work Phone: [facility] 08-18-2013 influenza virus vacc ine, unspecified formulation Waldo Miguel DO Work Phone: [facility] 05-14-2013 varicella virus vaccine Shad Salazar PA-C Work Phone: [facility] 11-03-2009 novel influenza-H1N1 -09, preservative-free, injectable Kenneth Salazar PA-C Work Phone: [facility] 09-14-2009 novel influenza-H1N1 -09, preservative-free, injectable Kenneth Salazar PA-C Work Phone: [facility] 07-15-2008 diphtheria, tetanus toxoids and acellular pertussis vaccine, unspecified formulation Kenneth Salazar PA-C Work Phone: [facility] 07-15-2008 hepatitis A vaccine, unspecified formulation Kenneth Salazar PA-C Work Phone: [facility] 07-15-2008 measles, mumps and rubella virus vaccine Kenneth Salazar PA-C Work Phone: [facility] 07-15-2008 poliovirus vaccine, inactivated Kenneth Salazar PA-C Work Phone: [facility] 07-12-2006 diphtheria, tetanus toxoids and acellular pertussis vaccine, unspecified formulation Kenneth Martin PA-C Work Phone: [facility] 07-12-2006 hepatitis A vaccine, unspecified formulation Kenneth Martin PA-C Work Phone: [facility] 08-01-2005 diphtheria, tetanus toxoids and acellular pertussis vaccine, unspecified formulation Kenneth Salazar PA-C Work Phone: [facility] 08-01-2005 hepatitis B vaccine, pediatric or pediatric/adolescent dosage Kenneth Salazar PA-C Work Phone: [facility] 08-01-2005 poliovirus vaccine, inactivated Kenneth Salazar PA-C Work Phone: [facility] 08-01-2005 varicella virus vaccine Shad Salazar PA-C Work Phone: [facility] 06-22-2004 DTaP-hepatitis B and poliovirus vaccine Kenneth Salazar PA-C Work Phone: [facility] 06-22-2004 haemophilus influenz ae type b vaccine, conjugate unspecified formulation Kenneth Salazar PA-C Work Phone: [facility] 06-22-2004 measles, mumps and rubella virus vaccine Kenneth Salazar PA-C Work Phone: [facility] 06-22-2004 pneumococcal conjuga te vaccine, 7 valent Kenneth Salazar PA-C Work Phone: [facility] 2003 DTaP-hepatitis B and poliovirus vaccine Kenneth Salazar PA-C Work Phone: [facility] 2003 pneumococcal conjuga te vaccine, 7 valent Kenneth Salazar PA-C Work Phone: [facility] 2003 hepatitis B vaccine, pediatric or pediatric/adolescent dosage Kenneth Salazar PA-C Work Phone: [facility] Payers Date Payer Category Payer Self-pay 2025 Private Health Insurance [id number] 2021 Unknown [id number] 2019 Medicaid [employer] [id number] 2019-Present [phone] [address] [place] [address] Medicaid [id number] 2019 Medicaid [id number] 2003 Unknown [id number] Unknown [id number] Social History Date Type Detail Facility Start: 06-16-2021 End: 06-26-2022 Tobacco smoking status MTIS Current every day smoker [facility] Work Phone: Start: 06-16-2021 End: 06-26-2022 Tobacco use and exposure Never used [facility] Start: 06-16-2021 End: 10-23-2021 Alcohol intake Ex-drinker (finding) [employer] Work Phone: Start: 2005 Sex Assigned At Not on file [facility] [employer] Work Phone: Start: 04-22-2022 End: 02-01-2023 Exposure to SARS-CoV-2 (event) Not sure [facility] Start: 2005 Sex Assigned At Female [facility] Work Phone: Start: 09-15-2019 End: 05-24-2025 Tobacco smoking status NHIS Never smoked tobacco [facility] Start: 05-06-2022 End: 06-26-2022 Alcohol intake Current drinker of alcohol (finding) [employer] Work Phone: Start: 05-06-2022 History SDOH Alcohol Comment weekly [facility] Work Phone: History of tobacco use Cigarette Smoker [facility] Start: 05-19-2022 History SDOH Alcohol Comment socially [facility] Clinical Notes 09-26-2021 to 05-24-2025 Waldo Miguel, - 01/31/2023 11:15 PM Parish Odom RN - 01/31/2023 11:15 PM Parish Odom RN - 01/31/2023 11:15 PM Sandrine Miguel DO - 01/31/2023 11:15 PM EDTPatient Instructions Note Date & Type Note Facility 05-24-2025 Radiology Diagnostic study note [facility] Imaging Services [address], [place] [address] Pelvic (Non ) MR#: [id number] Acct: [id number] Name: MATTIE RODRIGUEZ Rep #: [id number] : 2005 F 20 From: Swapnil Manjarrez MD PCP: Care Physician,No Primary Status: REG ER Study:Pelvic (Non ) Date of Exam: 05/24/25 Exam# [id number] Ordering Dr: Leander Lozano DO PROCEDURE: PELVIC (NON ) 05/24/2025 REASON FOR EXAM: PELVIC PAIN TECHNIQUE: PELVIC (NON ) COMPARISON: None FINDINGS: LMP: March 28, 2025. Measurements: Uterus: 6.2 cm x 4 cm x 3.1 cm with a volume of 40.87 mL Endometrial Thickness: 5.1 mm. Right Ovary: 2.8 cm x 2.7 cm x 2.1 cm with a volume of 8.38 mL. Left Ovary: 2.7 cm x 2.7 cm x 2.5 cm with a volume of 9.63 mL. Uterus: Normal size, myometrial echotexture, and contour. Endometrium: Unremarkable. Right ovary: Normal size and echotexture. Left ovary: Normal size and echotexture. Other: No large pelvic mass identified. US/Pelvic (Non ) IMPRESSION: NORMAL TRANSABDOMINAL PELVIC ULTRASOUND. Reading Location: [id number] CC: Dr. Shy Lozano DO; No Primary Care Physician ~ Financial Compliance Officer: Signed [facility] 02-04-2025 Note . MICRO - Microbiology PROCEDURE: Urine Culture [O1 *1] SOURCE: Urine BODY SITE: COLLECTED DATE/TIME: 02/02/2025 04:01 EDT RECEIVED DATE/TIME: 02/02/2025 15:31 EDT START DATE/TIME: 02/02/2025 15:32 EDT FREE TEXT SOURCE: FINAL REPORTS Final Report [] Verified Date/Time/Personnel: 02/04/2025 07:29 EDT No growth at 48 hours. PRELIMINARY REPORTS Preliminary Report [] Verified Date/Time/Personnel: 02/03/2025 08:46 EDT No growth to date Preliminary Report [] Verified Date/Time/Personnel: 02/02/2025 16:59 EDT Specimen received in lab. Order Comments O1: Urine Culture Added by Discern Performing Locations *1: This test was performed at: [facility], [address] [place] [address], [facility] , [facility] 01-31-2023 Emergency department Note EMERGENCY DEPARTMENT ENCOUNTER Pt Name: Mattie Rodriguez Birthdate 2005 Date of evaluation: 01/31/2023 ED Provider: Waldo Miguel DO CHIEF COMPLAINT Chief Complaint Patient presents with Food Bolus in Throat Food Bolus Stuck in Throat: Pt eating mac and cheese with peterson bits; food bolus stuck around 2230 tonight. HISTORY OF PRESENT ILLNESS (Location/Symptom, Timing/Onset, Context/Setting, Quality, Duration, Modifying Factors, Severity) Note limiting factors. I wore appropriate PPE for the entirety of this encounter. HPI Mattie Rodriguez is a 18 y.o. female who presents to the emergency department concerned that she has macaroni and cheese stuck in her esophagus. States she was eating dinner around 10 PM when she felt sensation of foreign body in her esophagus. States is a upper mid chest discomfort. States she vomited once. Has never had this happen before. No history of gastritis or reflux disease. Nursing Notes were reviewed. REVIEW OF SYSTEMS 14 systems reviewed and otherwise acutely negative except as in the [place]. PAST MEDICAL HISTORY Past Medical History: Diagnosis Date ADHD Anxiety Depression Ovarian cyst SURGICAL HISTORY No past surgical history on file. CURRENT MEDICATIONS Discharge Medication List as of 02/01/2023 2:03 AM ALLERGIES Patient has no known allergies. FAMILY HISTORY No family history on file. SOCIAL HISTORY Social History Socioeconomic History Marital status: Single Tobacco Use Smoking status: Every Day Smokeless tobacco: Never Substance and Sexual Activity Alcohol use: Yes Drug use: Yes Types: Marijuana SCREENINGS Blanchard Coma Scale Best Eye Response: Spontaneous Best Verbal Response: Oriented Best Motor Response: Follows commands Blanchard Coma Scale Score: 15 PHYSICAL EXAM ED Triage Vitals [01/31/23 2317] Temp Heart Rate Resp BP 36.8 C (98.2 F) 79 16 (!) 154/93 SpO2 Temp Source Heart Rate Source Patient Position 100 % Temporal Monitor -- BP Location FiO2 (%) -- -- CONSTITUTIONAL: AOx4, no apparent distress, appears stated age HEAD: normocephalic, atraumatic EYES: PERRL, EOMI ENT: moist mucous membranes, uvula midline NECK: supple, symmetric BACK: symmetric LUNGS: clear to auscultation bilaterally CARDIOVASCULAR: regular rate and rhythm, no murmurs, rubs or gallops ABDOMEN: soft, non-tender, non-distended with normal active bowel sounds : deferred NEUROLOGIC: MAEx4, no focal sensory or motor deficits MUSCULOSKELETAL: no clubbing, cyanosis or edema SKIN: no exposed rash DIAGNOSTIC RESULTS Procedures/EKG: EKG was reviewed by myself. Physician EKG interpretation can be found in [facility] RADIOLOGY (Per Emergency Physician): Interpretation per the Radiologist below, if available at the time of this note: No orders to display ED BEDSIDE ULTRASOUND: Performed by ED Physician - none LABS: Labs Reviewed - No data to display All other labs were within normal range or not returned as of this dictation. EMERGENCY DEPARTMENT COURSE and DIFFERENTIAL DIAGNOSIS/MDM: Vitals: Vitals: 01/31/23 2317 BP: (!) 154/93 Pulse: 79 Resp: 16 Temp: 36.8 C (98.2 F) TempSrc: Temporal SpO2: 100% Weight: 77.1 kg (170 lb) EMERGENCY DEPARTMENT COURSE and DIFFERENTIAL DIAGNOSIS/MDM: Vitals: Vitals: 01/31/23 2317 BP: (!) 154/93 Pulse: 79 Resp: 16 Temp: 36.8 C (98.2 F) TempSrc: Temporal SpO2: 100% Weight: 77.1 kg (170 lb) The patient presented with a chief complaint of concern for impacted food bolus, was eating macaroni and cheese prior to arrival. Patient vomited once. The differential diagnosis associated with this patient's presentation includes gastritis, gastroenteritis, impacted food bolus. Our workup consisted of ordering/reviewing IV glucagon was administered. Approximately 30 minutes later, the patient was given a carbonated beverage. Patient is tolerating a carbonated beverage however still has the same discomfort in her upper chest. We will continue to assess.. Patient was able to tolerate the full can of eliezer warner for which she states it feels like she was able to pass the full bolus in her stomach. Has no further sensation of stuck food. Patient has no history of GERD or gastritis or esophagitis. Start the patient on Pepcid. Recommend outpatient PCP and GI follow-up. All questions answered but okay to be discharged. Diagnoses as of 02/01/23 0235 Food impaction of esophagus, initial encounter Diagnostic tests considered but not performed: External records reviewed: Diagnostics interpreted by me: Discussions with other clinicians: Chronic conditions impacting care: Social determinants of health affecting care: ED Medications managed: Medications glucagon (human recombinant) injection 1 mg (1 mg IntraVENous Given 02/01/23 0029) aluminum & magnesium hydroxide-simethicone (Mylanta) 200-200-20 MG/5ML oral suspension 10 mL (10 mL Oral Given 02/01/23 0143) lidocaine (Xylocaine) 2 % mouth solution 15 mL (15 mL Mouth/Throat Given 02/01/23 014) CONSULTS: None PROCEDURES: Unless otherwise noted below, none Procedures Patients symptoms are consistent with sepsis, severe sepsis, or septic shock (If yes use .sepsiscoremeasure): FINAL IMPRESSION 1. Food impaction of esophagus, initial encounter DISPOSITION/PLAN dc PATIENT REFERRED TO: Sumit Palacios [address] [id number] Schedule an appointment as soon as possible for a visit DISCHARGE MEDICATIONS: Discharge Medication List as of 02/01/2023 2:03 AM START taking these medications Details famotidine (Pepcid) 40 MG tablet Take 1 tablet (40 mg) by mouth Nightly as needed for heartburn for up to 20 days., Starting Sat02/01/2023, Until Jessica 02/21/2023 at 2359, Normal (Comment: Please note this report has been produced using speech recognition software and may contain errors related to that system including errors in grammar, punctuation, and spelling, as well as words and phrases that may be inappropriate. If there are any questions or concerns please feel free to contact the dictating provider for clarification.) Waldo Miguel DO (electronically signed) Emergency Medicine Provider Waldo Miguel DO 02/01/23 0235 Pt arrived to ED with family member. Pt reports having a food bolus of mac and cheese and peterson bits stuck in throat since 2229. Pt vomited one time around 2299 but it did not relieve the symptoms. Pt able to speak in full sentences throughout triage and answer questions appropriately. documented in this encounter [facility] 01-31-2023 Emergency department Triage note Pt arrived to ED with family member. Pt reports having a food bolus of mac and cheese and peterson bits stuck in throat since 2230. Pt vomited one time around 2300 but it did not relieve the symptoms. Pt able to speak in full sentences throughout triage and answer questions appropriately. [facility] 01-31-2023 Physician Emergency department Note EMERGENCY DEPARTMENT ENCOUNTER Pt Name: Mattie Rodriguez Birthdate 2005 Date of evaluation: 01/31/2023 ED Provider: Waldo Miguel DO CHIEF COMPLAINT Chief Complaint Patient presents with Food Bolus in Throat Food Bolus Stuck in Throat: Pt eating mac and cheese with peterson bits; food bolus stuck around 2230 tonight. HISTORY OF PRESENT ILLNESS (Location/Symptom, Timing/Onset, Context/Setting, Quality, Duration, Modifying Factors, Severity) Note limiting factors. I wore appropriate PPE for the entirety of this encounter. HPI Mattie Rodriguez is a 18 y.o. female who presents to the emergency department concerned that she has macaroni and cheese stuck in her esophagus. States she was eating dinner around 10 PM when she felt sensation of foreign body in her esophagus. States is a upper mid chest discomfort. States she vomited once. Has never had this happen before. No history of gastritis or reflux disease. Nursing Notes were reviewed. REVIEW OF SYSTEMS 14 systems reviewed and otherwise acutely negative except as in the [place]. PAST MEDICAL HISTORY Past Medical History: Diagnosis Date ADHD Anxiety Depression Ovarian cyst SURGICAL HISTORY No past surgical history on file. CURRENT MEDICATIONS Discharge Medication List as of 02/01/2023 2:03 AM ALLERGIES Patient has no known allergies. FAMILY HISTORY No family history on file. SOCIAL HISTORY Social History Socioeconomic History Marital status: Single Tobacco Use Smoking status: Every Day Smokeless tobacco: Never Substance and Sexual Activity Alcohol use: Yes Drug use: Yes Types: Marijuana SCREENINGS Mar[place] Coma Scale Best Eye Response: Spontaneous Best Verbal Response: Oriented Best Motor Response: Follows commands Marifer Coma Scale Score: 15 PHYSICAL EXAM ED Triage Vitals [01/31/23 2317] Temp Heart Rate Resp BP 36.8 C (98.2 F) 79 16 (!) 154/93 SpO2 Temp Source Heart Rate Source Patient Position 100 % Temporal Monitor -- BP Location FiO2 (%) -- -- CONSTITUTIONAL: AOx4, no apparent distress, appears stated age HEAD: normocephalic, atraumatic EYES: PERRL, EOMI ENT: moist mucous membranes, uvula midline NECK: supple, symmetric BACK: symmetric LUNGS: clear to auscultation bilaterally CARDIOVASCULAR: regular rate and rhythm, no murmurs, rubs or gallops ABDOMEN: soft, non-tender, non-distended with normal active bowel sounds : deferred NEUROLOGIC: MAEx4, no focal sensory or motor deficits MUSCULOSKELETAL: no clubbing, cyanosis or edema SKIN: no exposed rash DIAGNOSTIC RESULTS Procedures/EKG: EKG was reviewed by myself. Physician EKG interpretation can be found in [facility] RADIOLOGY (Per Emergency Physician): Interpretation per the Radiologist below, if available at the time of this note: No orders to display ED BEDSIDE ULTRASOUND: Performed by ED Physician - none LABS: Labs Reviewed - No data to display All other labs were within normal range or not returned as of this dictation. EMERGENCY DEPARTMENT COURSE and DIFFERENTIAL DIAGNOSIS/MDM: Vitals: Vitals: 01/31/23 2317 BP: (!) 154/93 Pulse: 79 Resp: 16 Temp: 36.8 C (98.2 F) TempSrc: Temporal SpO2: 100% Weight: 77.1 kg (170 lb) EMERGENCY DEPARTMENT COURSE and DIFFERENTIAL DIAGNOSIS/MDM: Vitals: Vitals: 01/31/23 2317 BP: (!) 154/93 Pulse: 79 Resp: 16 Temp: 36.8 C (98.2 F) TempSrc: Temporal SpO2: 100% Weight: 77.1 kg (170 lb) The patient presented with a chief complaint of concern for impacted food bolus, was eating macaroni and cheese prior to arrival. Patient vomited once. The differential diagnosis associated with this patient's presentation includes gastritis, gastroenteritis, impacted food bolus. Our workup consisted of ordering/reviewing IV glucagon was administered. Approximately 30 minutes later, the patient was given a carbonated beverage. Patient is tolerating a carbonated beverage however still has the same discomfort in her upper chest. We will continue to assess.. Patient was able to tolerate the full can of eliezer warner for which she states it feels like she was able to pass the full bolus in her stomach. Has no further sensation of stuck food. Patient has no history of GERD or gastritis or esophagitis. Start the patient on Pepcid. Recommend outpatient PCP and GI follow-up. All questions answered but okay to be discharged. Diagnoses as of 02/01/23234 Food impaction of esophagus, initial encounter Diagnostic tests considered but not performed: External records reviewed: Diagnostics interpreted by me: Discussions with other clinicians: Chronic conditions impacting care: Social determinants of health affecting care: ED Medications managed: Medications glucagon (human recombinant) injection 1 mg (1 mg IntraVENous Given 02/01/23 0029) aluminum & magnesium hydroxide-simethicone (Mylanta) 200-200-20 MG/5ML oral suspension 10 mL (10 mL Oral Given 02/01/23142) lidocaine (Xylocaine) 2 % mouth solution 15 mL (15 mL Mouth/Throat Given 02/01/23142) CONSULTS: None PROCEDURES: Unless otherwise noted below, none Procedures Patients symptoms are consistent with sepsis, severe sepsis, or septic shock (If yes use .sepsiscoremeasure): FINAL IMPRESSION 1. Food impaction of esophagus, initial encounter DISPOSITION/PLAN dc PATIENT REFERRED TO: Sumit Palacios [address] [place] [address] Schedule an appointment as soon as possible for a visit DISCHARGE MEDICATIONS: Discharge Medication List as of 02/01/2023 2:03 AM START taking these medications Details famotidine (Pepcid) 40 MG tablet Take 1 tablet (40 mg) by mouth Nightly as needed for heartburn for up to 20 days., Starting Sat02/01/2023, Until Jessica 02/21/2023 at 2359, Normal (Comment: Please note this report has been produced using speech recognition software and may contain errors related to that system including errors in grammar, punctuation, and spelling, as well as words and phrases that may be inappropriate. If there are any questions or concerns please feel free to contact the dictating provider for clarification.) Waldo Miguel DO (electronically signed) Emergency Medicine Provider Waldo Miguel DO 02/01/23234 [facility] 06-26-2022 Note HNO ID: [id number] Author: Marge Higgins APRN.[employer] Service: ? Author Type: Nurse Practitioner Type: Progress Notes Filed: 06/26/2022 11:15 AM Note Text: This note was created using NoteWriter. Subjective Mattie Rodriguez is a 17 year old female. HPI by patient: Mattie Rodriguez is a 17 year old female presenting to the office with the complaint of viral symptoms. Started approximately 3 days ago, Saturday. Associated symptoms include sore throat, cough, headache, feeling warm with chills, sinus congestion, fatigue, body aches, and nausea. Denies vomiting, diarrhea, and shortness of breath. Vaccinated for influenza: unsure. Covid Immunization Dates Postponed - COVID-19 VACCINE (1) Postponed until 05/04/2023 05/04/2022 Postponed until 05/04/2023 by Kenneth Salazar PA-C (Declined at this time) Personal history of Covid: unsure. Flu/RSV contacts: none. Strep contacts: none. Sick contacts: none. Covid + contacts: none. Travel in the last 14 days: none. Smoking history/second hand smoke: none. OTC ibuprofen. No antibiotic use in the last 60 days. ALLERGIES No Known Allergies No family history on file. Social History Tobacco Use Smoking status: Never Smokeless tobacco: Never Vaping Use Vaping Use: current everyday user Alcohol use: Yes Comment: socially Drug use: Yes Types: Marijuana Comment: daily Active Ambulatory Problems No Active Ambulatory Problems Resolved Ambulatory Problems No Resolved Ambulatory Problems No Additional Past Medical History Review of Systems Constitutional: Positive for chills and fatigue. Fever: felt warm. HENT: Positive for congestion and sore throat. Negative for ear pain. Eyes: Negative. Respiratory: Positive for cough. Cardiovascular: Negative. Gastrointestinal: Positive for nausea. Negative for diarrhea and vomiting. Endocrine: Negative. Genitourinary: Negative. Musculoskeletal: Negative. Skin: Negative. Neurological: Positive for headaches. Hematological: Negative. Objective BP 114/70 Pulse 68 Temp 36.3 ?C (97.4 ?F) (Temporal) Ht 167.6 cm (5' 5.98) Wt 83.9 kg (185 lb) LMP 05/13/2022 BMI 29.87 kg/m? Physical Exam Vitals reviewed. Constitutional: General: She is not in acute distress. Appearance: She is not ill-appearing, toxic-appearing or diaphoretic. HENT: Head: Normocephalic and atraumatic. Right Ear: Tympanic membrane, ear canal and external ear normal. Left Ear: Tympanic membrane, ear canal and external ear normal. Nose: Rhinorrhea present. Right Sinus: No maxillary sinus tenderness or frontal sinus tenderness. Left Sinus: No maxillary sinus tenderness or frontal sinus tenderness. Mouth/Throat: Mouth: Mucous membranes are moist. Pharynx: Oropharynx is clear. No oropharyngeal exudate or posterior oropharyngeal erythema. Cardiovascular: Rate and Rhythm: Normal rate and regular rhythm. Pulmonary: Effort: Pulmonary effort is normal. Breath sounds: Normal breath sounds. Lymphadenopathy: Head: Right side of head: No submandibular or tonsillar adenopathy. Left side of head: No submandibular or tonsillar adenopathy. Cervical: Cervical adenopathy present. Right cervical: Superficial cervical adenopathy present. Left cervical: Superficial cervical adenopathy present. Psychiatric: Behavior: Behavior is cooperative. Assessment and Plan (J06.9) Viral URI with cough (primary encounter diagnosis) Plan: COVID WITH FLUA+B, ROUTINE, Sktgvraemheoqse-Rfxaisduy-UT (BROMFED DM) 2-30-10 mg/5 mL syrup, fluticasone (FLONASE ALLERGY RELIEF) 50 mcg/actuation nasal spray (J02.9) Pharyngitis, unspecified etiology Plan: COVID WITH FLUA+B, ROUTINE, Znikpnfpqbvlhta-Iaeejtoid-OJ (BROMFED DM) 2-30-10 mg/5 mL syrup, fluticasone (FLONASE ALLERGY RELIEF) 50 mcg/actuation nasal spray (R51.9) Headache, unspecified headache type Plan: COVID WITH FLUA+B, ROUTINE, methylPREDNISolone (MEDROL DOSE-PACK) 4 mg Dose-Pack Education on viral vs bacterial infections. Most viral infections will last 10 days, sometimes 14. It is possible to have back to back viral infections. An antibiotic will not treat a virus. -Negative strep culture in office. -Covid test for rule out, results in 48 hours, isolation in the interim. Result to mychart. -Drink lots of fluids and get plenty of rest. Gargle with salt water 3 times/day. -Vaporizers, cool mist humidifiers, warm showers, and warm fluids help open respiratory and sinus passages. Clean humidifiers daily. -OTC tylenol as directed on the bottle. Medrol dose for migraine/headache. No ibuprofen or other nsaids, like Excedrin, while taking steroids. -Saline nasal spray as needed. Flonase twice daily can help reduce inflammation through the sinus cavities. -Bromfed for cough/congestion- changed to mucinex dm. -Cough/deep breathing education, promote clearing of the airways and good lung expansion. -Make follow up with primary care for m (more content not included)... [facility] 06-26-2022 Instructions Marge Higgins APRN.[facility] - 06/26/2022 11:07 AM EDT (J06.9) Viral URI with cough (primary encounter diagnosis) Plan: COVID WITH FLUA+B, ROUTINE, Udafllgakmhhfsz-Qvcezaigx-BN (BROMFED DM) 2-30-10 mg/5 mL syrup, fluticasone (FLONASE ALLERGY RELIEF) 50 mcg/actuation nasal spray (J02.9) Pharyngitis, unspecified etiology Plan: COVID WITH FLUA+B, ROUTINE, Hmnamlagypyaifh-Nmlgcqnnv-IV (BROMFED DM) 2-30-10 mg/5 mL syrup, fluticasone (FLONASE ALLERGY RELIEF) 50 mcg/actuation nasal spray (R51.9) Headache, unspecified headache type Plan: COVID WITH FLUA+B, ROUTINE, methylPREDNISolone (MEDROL DOSE-PACK) 4 mg Dose-Pack Education on viral vs bacterial infections. Most viral infections will last 10 days, sometimes 14. It is possible to have back to back viral infections. An antibiotic will not treat a virus. -Negative strep culture in office. -Covid test for rule out, results in 48 hours, isolation in the interim. Result to mychart. -Drink lots of fluids and get plenty of rest. Gargle with salt water 3 times/day. -Vaporizers, cool mist humidifiers, warm showers, and warm fluids help open respiratory and sinus passages. Clean humidifiers daily. -OTC tylenol as directed on the bottle. Medrol dose for migraine/headache. No ibuprofen or other nsaids, like Excedrin, while taking steroids. -Saline nasal spray as needed. Flonase twice daily can help reduce inflammation through the sinus cavities. -Bromfed for cough/congstion. -Cough/deep breathing education, promote clearing of the airways and good lung expansion. -Make follow up with primary care for monitoring and resolution in symptoms. -Signs that warrant an ER evaluation: Sudden change/worsening in condition, lethargy, signs of dehydration, fever greater than 102 F that is not responding to Tylenol or ibuprofen (Motrin, Advil), drooling, difficulty swallowing, difficulty breathing, shortness of breath, chest pain, evidence of airway compromise (tripod position, neck extension, retractions), seizures, changes in mental status, or other concerns. documented in this encounter [facility] 06-26-2022 History of Present illness Narrative This note was created using [employer]. Subjective Mattie Rodriguez is a 17 year old female. HPI by patient: Mattie Rodriguez is a 17 year old female presenting to the office with the complaint of viral symptoms. Started approximately 3 days ago, Saturday. Associated symptoms include sore throat, cough, headache, feeling warm with chills, sinus congestion, fatigue, body aches, and nausea. Denies vomiting, diarrhea, and shortness of breath. Vaccinated for influenza: unsure. Covid Immunization Dates Postponed - COVID-19 VACCINE (1) Postponed until 05/04/2023 05/04/2022 Postponed until 05/04/2023 by Kenneth Salazar PA-C (Declined at this time) Personal history of Covid: unsure. Flu/RSV contacts: none. Strep contacts: none. Sick contacts: none. Covid + contacts: none. Travel in the last 14 days: none. Smoking history/second hand smoke: none. OTC ibuprofen. No antibiotic use in the last 60 days. ALLERGIES No Known Allergies No family history on file. Social History Tobacco Use Smoking status: Never Smokeless tobacco: Never Vaping Use Vaping Use: current everyday user Alcohol use: Yes Comment: socially Drug use: Yes Types: Marijuana Comment: daily Active Ambulatory Problems No Active Ambulatory Problems Resolved Ambulatory Problems No Resolved Ambulatory Problems No Additional Past Medical History Review of Systems Constitutional: Positive for chills and fatigue. Fever: felt warm. HENT: Positive for congestion and sore throat. Negative for ear pain. Eyes: Negative. Respiratory: Positive for cough. Cardiovascular: Negative. Gastrointestinal: Positive for nausea. Negative for diarrhea and vomiting. Endocrine: Negative. Genitourinary: Negative. Musculoskeletal: Negative. Skin: Negative. Neurological: Positive for headaches. Hematological: Negative. Objective BP 114/70 Pulse 68 Temp 36.3 C (97.4 F) (Temporal) Ht 167.6 cm (5' 5.98) Wt 83.9 kg (185 lb) LMP 05/13/2022 BMI 29.87 kg/m Physical Exam Vitals reviewed. Constitutional: General: She is not in acute distress. Appearance: She is not ill-appearing, toxic-appearing or diaphoretic. HENT: Head: Normocephalic and atraumatic. Right Ear: Tympanic membrane, ear canal and external ear normal. Left Ear: Tympanic membrane, ear canal and external ear normal. Nose: Rhinorrhea present. Right Sinus: No maxillary sinus tenderness or frontal sinus tenderness. Left Sinus: No maxillary sinus tenderness or frontal sinus tenderness. Mouth/Throat: Mouth: Mucous membranes are moist. Pharynx: Oropharynx is clear. No oropharyngeal exudate or posterior oropharyngeal erythema. Cardiovascular: Rate and Rhythm: Normal rate and regular rhythm. Pulmonary: Effort: Pulmonary effort is normal. Breath sounds: Normal breath sounds. Lymphadenopathy: Head: Right side of head: No submandibular or tonsillar adenopathy. Left side of head: No submandibular or tonsillar adenopathy. Cervical: Cervical adenopathy present. Right cervical: Superficial cervical adenopathy present. Left cervical: Superficial cervical adenopathy present. Psychiatric: Behavior: Behavior is cooperative. Assessment and Plan (J06.9) Viral URI with cough (primary encounter diagnosis) Plan: COVID WITH FLUA+B, ROUTINE, Zogxnxlvnekexts-Bradsuawu-ZJ (BROMFED DM) 2-30-10 mg/5 mL syrup, fluticasone (FLONASE ALLERGY RELIEF) 50 mcg/actuation nasal spray (J02.9) Pharyngitis, unspecified etiology Plan: COVID WITH FLUA+B, ROUTINE, Bmxbacltauagqjp-Kmpdkmfhr-HM (BROMFED DM) 2-30-10 mg/5 mL syrup, fluticasone (FLONASE ALLERGY RELIEF) 50 mcg/actuation nasal spray (R51.9) Headache, unspecified headache type Plan: COVID WITH FLUA+B, ROUTINE, methylPREDNISolone (MEDROL DOSE-PACK) 4 mg Dose-Pack Education on viral vs bacterial infections. Most viral infections will last 10 days, sometimes 14. It is possible to have back to back viral infections. An antibiotic will not treat a virus. -Negative strep culture in office. -Covid test for rule out, results in 48 hours, isolation in the interim. Result to mychart. -Drink lots of fluids and get plenty of rest. Gargle with salt water 3 times/day. -Vaporizers, cool mist humidifiers, warm showers, and warm fluids help open respiratory and sinus passages. Clean humidifiers daily. -OTC tylenol as directed on the bottle. Medrol dose for migraine/headache. No ibuprofen or other nsaids, like Excedrin, while taking steroids. -Saline nasal spray as needed. Flonase twice daily can help reduce inflammation through the sinus cavities. -Bromfed for cough/congestion- changed to mucinex dm. -Cough/deep breathing education, promote clearing of the airways and good lung expansion. -Make follow up with primary care for monitoring and resolution in symptoms. -Signs that warrant an ER evaluation: Sudden change/worsening in condition, lethargy, signs of dehydration, fever greater than 102 F that is not responding to Tylenol or ibuprofen (Motrin, Advil), drooling, difficulty swallowing, difficulty breathing, shortness of breath, chest pain, evidence of airway compromise (tripod position, neck extension, retractions), seizures, changes in mental status, or other concerns. The patient will pursue further outpatient evaluation with the primary care physician or another Urgent Care/Express Care as outlined in the after visit summary. The patient is agreeable to this plan of care and follow-up instructions have been explained in detail. The patient has received these instructions in written format and have expressed an understanding of the after visit summary. Medical Decision Making: Level: 3 - Low I spent a total of 20 minutes on the date of the service which included preparing to see the patient, [id number] patient care, completing clinical documentation, obtaining and/or reviewing separately obtained history, performing a medically appropriate examination, counseling and educating the patient/family/caregiver, and ordering medications, tests, or procedures. This patient encounter involved the screening or treatment of novel coronavirus infection (COVID-19). documented in this encounter [facility] 05-10-2022 Miscellaneous Notes Left message for patient to return call. Kayli August ----- Message from Kenneth Salazar PA-C sent at 05/07/2022 8:03 AM EDT ----- Let patient know: Vitamin D is somewhat low, will send supplement to pharmacy. Hepatitis C antibody was positive, but confirmation test was negative. This means she was exposed to the hepatitis C virus, but must have cleared the virus naturally. She DOES NOT currently have hepatitis C. HIV negative. B12 is fine. A1C (3 month glucose average) is good. CBC/CMP are good. HDL (good cholesterol) is a little low. This can be helped with exercise, smoking cessation, and healthy weight loss. Keep appointment with Dr. Carlson for follow-up. documented in this encounter [facility] 05-06-2022 Hospital Discharge instructions Pietro Oleary MD - 05/06/2022 Ice to the area, use the splint for the next 3 days, follow-up with your regular medical doctor, and return to the ER if any worsening problems or occur at all. Call and follow-up with your physician Dr. Garcia as if your wrist still bothering you may need repeat x-ray in a week. The following attachments cannot be sent through Care Everywhere.Cervical Strain (Kyrgyz)Strain or Sprain (Kyrgyz)documented in this encounter [facility] Work Phone: 05-04-2022 Note HNO ID: [id number] Author: Kenneth Salazar PA-C Service: ? Author Type: Physician Bioinformatics Scientist Type: Progress Notes Filed: 05/04/2022 5:01 PM Note Text: ESTABLISH CARE PHYSICAL Mattie Rodriguez is a 17 year old female presents today to [facility]. She was previously seen by [facility]. She is accompanied today by her mother and nephew. Recently seen at [facility] 05/02/22 for urinary frequency and intermittent nausea. Urine dip with glucose, hemoglobin, protein, urobilinogen, and leukocytes. Treated for UTI (did not start antibiotic yet), culture resulted mixed rhianna. FSBS at this visit was 84. HCG negative. She is still having urinary frequency x1 week. No dysuria. No hematuria. No abdominal pain. No constipation or diarrhea. She has intermittent nausea without vomiting. Regularly drinks alcohol at night but doesn't eat or drink much otherwise. Has had some intermittent increased thirst recently. No known family history of DM, but doesn't know history on dad's side. Mattie smokes nicotine (vapes) constantly and smokes marijuana daily. No other drug use. Alcohol daily recently as well with friends as noted above. Mattie reports feeling down about herself for several months. She was previously seeing a counselor in high school and through [facility], but hasn't seen them in a while. She has been prescribed Lexapro and Atarax PRN in the past but doesn't really take them. Denies SI/HI at this time, denies any thoughts of self-harm. She doesn't feel comfortable talking about the issues she has, but would be willing to consider establishing with a new counselor/psychiatrist. Immunizations: - up to date on childhood immunizations per mother, who is at visit - Flu: 08/18/2013 - COVID: no, not interested - HPV: 09/13/, 02/16/16, 06/12/16 -TDaP: 06/01/2015 Women's Health: - LMP: irregular, unsure of date. Has been off DepoProvera injections x19 months but cycles never regulated. - hx of ovarian cyst with reupture - follows with OBGYN and had recent negative STI testing 06/2021 - Pap: few months ago Diet: Doesn't eat much, especially the last few months. Nothing besides water today (4pm). States she doesn't have much of an appetite typically. Exercise: Active hiking and rock climbing with friends, no formal exercise. Eye Exam: Just there a few months ago. Has glasses but doesn't wear them Dentist: not regularly Review of Systems: Review of Systems Constitutional: Positive for appetite change. Negative for chills, fatigue and fever. HENT: Negative for congestion, rhinorrhea and sore throat. Respiratory: Negative for cough and shortness of breath. Cardiovascular: Negative for chest pain. Gastrointestinal: Positive for nausea. Negative for abdominal pain, blood in stool, constipation, diarrhea and vomiting. Genitourinary: Positive for frequency. Negative for decreased urine volume, difficulty urinating, dysuria, hematuria, pelvic pain, urgency, vaginal bleeding and vaginal discharge. Musculoskeletal: Negative for joint swelling and neck pain. Skin: Negative for rash. Allergic/Immunologic: Negative for immunocompromised state. Neurological: Negative for dizziness, weakness and light-headedness. Hematological: Does not bruise/bleed easily. Psychiatric/Behavioral: Negative for agitation, behavioral problems and confusion. History Reviewed: No past medical history on file. No past surgical history on file. No family history on file. Social History Tobacco Use - Smoking status: Never Smoker - Smokeless tobacco: Never Used Substance Use Topics - Alcohol use: Not on file - Drug use: Not on file ALLERGIES No Known Allergies Current Outpatient Medications Medication Sig - nitrofurantoin monohydrate and macrocrystal (MACROBID) 100 mg capsule Take 1 capsule by mouth twice daily for 5 days. (Patient not taking: Reported on 05/04/2022 ) Physical Exam: Physical Exam Vitals and nursing note reviewed. Constitutional: General: She is awake. She is not in acute distress. Appearance: Normal appearance. She is well-developed and well-groomed. She is not ill-appearing, toxic-appearing or diaphoretic. HENT: Head: Normocephalic and atraumatic. Right Ear: Tympanic membrane, ear canal and external ear normal. No drainage, swelling or tenderness. No middle ear effusion. There is no impacted cerumen. No foreign body. Tympanic membrane is not injected, scarred, perforated, erythematous, retracted or bulging. Left Ear: Tympanic membrane, ear canal and external ear normal. No drainage, swelling or tenderness. No middle ear effusion. There is no impacted cerumen. No foreign body. Tympanic membrane is not injected, scarred, perforated, erythematous, retracted or bulging. Mouth/Throat: Lips: [place]. No lesions. Mouth: Mucous membranes are moist. Pharynx: Oropharynx is clear. Uvula midline. Neck: Thyroid: No thyromegal (more content not included)... [facility] 05-04-2022 Miscellaneous Notes Left message with patient's mother asking patient to return call. If patient's symptoms are improving, she can continue to take antibiotics as prescribed. If symptoms are not improving, please have her come in for a nurse visit to provide another urine sample. documented in this encounter [facility] 05-02-2022 Note HNO ID: [id number] Author: Amos Wright PA-C Service: ? Author Type: Physician Bioinformatics Scientist Type: Progress Notes Filed: 05/02/2022 7:32 PM Note Text: Mattie returned with a urine sample. She denies taking any Azo or OTC products to help urinary symptoms. She denies eating today, but states she drank a full Coke (not diet) on the drive back here tonight. Component Latest Ref Rng AND Units 05/02/2022 GLUCOSE UA (POCT) Negative mg/dL 100 (A) BILIRUBIN UA (POCT) Negative Small (A) KETONE UA (POCT) Negative mg/dL Trace SPECIFIC GRAVITY UA (POCT) 1.005 - 1.030 >=1.030 HEMOGLOBIN/BLOOD UA (POCT) Negative Large (A) PH UA (POCT) 4.5 - 8.0 6.0 PROTEIN UA (POCT) Negative mg/dL >=300 (A) UROBILINOGEN UA (POCT) Normal E.U./dL 2.0 (A) NITRITE UA (POCT) Negative Negative LEUKOCYTES UA (POCT) Negative Trace (A) COLOR UA (POCT) Dark yellow CLARITY UA (POCT) Clear Component Latest Ref Rng AND Units 05/02/2022 , Urine neg - pos Negative Quality Check yes/no Yes Component Latest Ref Rng AND Units 05/02/2022 GLUCOSE 65 - 100 mg/dL 84 ASSESSMENT/PLAN: 1. Nausea - off and on x 1 week 2. Irregular menses - this is ongoing, but is not on BC or sure when her LMP was. 3. Leukocytes in urine - 4. Urinary frequency - x1 week - HCG QUAL UR B/O- negative - UA DIP, URINE (POC)- dark urine and shows +glucose, +leuks, +hematuria, - URINE CULTURE - NITROFURANTOIN MONOHYDRATE AND MACROCRYSTAL 100 MG ORAL CAP- to cover for UTI - GLUCOSE, BLOOD (POC)- normal, 84 5. Encounter to establish care - ICD9: V65.8, ICD10: Z76.89 Needs follow up to ensure symptoms resolution and recheck of the urine. Unsure if the UA findings (ie +glucose) is accurate. - ESTABLISH WITH PRIMARY CARE ? NEW PATIENT- appt for 05/04/22 - Advised PCP or CORE MAKER follow up - Work excuse provided Encourage fluids, rest. Fallon foods Tums before bed and in the morning Tylenol If you cannot drink or keep down fluids- go to ER for dehydration. If you have worsening symptoms- go to ER Call PCP if sx worsen or no better. If symptoms worsen, or new symptoms develop go to ER. If you have worsening of breathing or breathing changes- go to ER. If you have persistent fever unrelieved by Tylenol/Motrin- go to the ER. Discussed all red flag symptoms and reasons to go to ER No further questions. Follow up as needed. Barriers to learning: none. The patient verbalizes understanding and is in agreement with plan of care. Amos Wright PA-C [facility] 05-02-2022 Miscellaneous Notes Addended by: AMOS WRIGHT on: 05/02/2022 06:18 PM Modules accepted: Orders Addended by: AMOS WRIGHT on: 05/02/2022 05:46 PM Modules accepted: Orders Addended by: AMOS WRIGHT on: 05/02/2022 05:42 PM Modules accepted: Orders documented in this encounter [facility] 05-02-2022 History of Present illness Narrative Mattie returned with a urine sample. She denies taking any Azo or OTC products to help urinary symptoms. She denies eating today, but states she drank a full Coke (not diet) on the drive back here tonight. Component Latest Ref Rng & Units 05/02/2022 GLUCOSE UA (POCT) Negative mg/dL 100 (A) BILIRUBIN UA (POCT) Negative Small (A) KETONE UA (POCT) Negative mg/dL Trace SPECIFIC GRAVITY UA (POCT) 1.005 - 1.030 >=1.030 HEMOGLOBIN/BLOOD UA (POCT) Negative Large (A) PH UA (POCT) 4.5 - 8.0 6.0 PROTEIN UA (POCT) Negative mg/dL >=300 (A) UROBILINOGEN UA (POCT) Normal E.U./dL 2.0 (A) NITRITE UA (POCT) Negative Negative LEUKOCYTES UA (POCT) Negative Trace (A) COLOR UA (POCT) Dark yellow CLARITY UA (POCT) Clear Component Latest Ref Rng & Units 05/02/2022 , Urine neg - pos Negative Quality Check yes/no Yes Component Latest Ref Rng & Units 05/02/2022 GLUCOSE 65 - 100 mg/dL 84 ASSESSMENT/PLAN: 1. Nausea - off and on x 1 week 2. Irregular menses - this is ongoing, but is not on BC or sure when her LMP was. 3. Leukocytes in urine - 4. Urinary frequency - x1 week - HCG QUAL UR B/O- negative - UA DIP, URINE (POC)- dark urine and shows +glucose, +leuks, +hematuria, - URINE CULTURE - NITROFURANTOIN MONOHYDRATE & MACROCRYSTAL 100 MG ORAL CAP- to cover for UTI - GLUCOSE, BLOOD (POC)- normal, 84 5. Encounter to establish care - ICD9: V65.8, ICD10: Z76.89 Needs follow up to ensure symptoms resolution and recheck of the urine. Unsure if the UA findings (ie +glucose) is accurate. - ESTABLISH WITH PRIMARY CARE NEW PATIENT- appt for 05/04/22 - Advised PCP or CORE MAKER follow up - Work excuse provided Encourage fluids, rest. Fallon foods Tums before bed and in the morning Tylenol If you cannot drink or keep down fluids- go to ER for dehydration. If you have worsening symptoms- go to ER Call PCP if sx worsen or no better. If symptoms worsen, or new symptoms develop go to ER. If you have worsening of breathing or breathing changes- go to ER. If you have persistent fever unrelieved by Tylenol/Motrin- go to the ER. Discussed all red flag symptoms and reasons to go to ER No further questions. Follow up as needed. Barriers to learning: none. The patient verbalizes understanding and is in agreement with plan of care. Amos Wright PA-C 05/02/2022 Patient presents with: Nausea Work Note SUBJECTIVE: This is a 17 year old female that is here for a return to work letter. She initially stated that she came in for a work excuse letter. She and a friend (whom she works with) missed a day of work 7 days ago, and her work requires her to have a return to work letter. She states she missed work due to nausea, which has resolved. Then she states nausea actually has not resolved, and has been off and on daily x 7 days. She had a negative test at home yesterday. She is not on BC. She has irregular menses, and so, does not know when her LMP was. She then states she has had off and on STACY and urine frequency. I'm urinating constantly. Though she states she eats and drinks little due to decreased appetite. She denies dysuria or other UTI symptoms. No vaginal complaints. No diarrhea, abdominal pain, back pain, fever, chills, sweats, or other sick symptoms. . No sinus symptoms, cough, or rash. Denies fever, chills, sweats, or fatigue. Patient denies wheezing, shortness of breath, increased WOB, or chest pain. No other URI symptoms. No other sick symptoms. Pain on scale of 0-10 with 0 being no pain and 10 being greatest pain: 0 Nothing makes the symptoms better. Nothing makes them worse. Self-treatment:. none The severity is mild and the symptoms are not improving. The patient did not have a similar problem in the last 3 months. The patient did not take any antibiotics in the last 3 months. Barriers to learning: none. Reviewed meds, OTCs, herbals or supplements. Reviewed allergies, medications, social history, and past medical history. No past medical history on file. ALLERGIES Patient has no known allergies. MEDICATIONS No current outpatient medications on file. No current facility-administered medications for this visit. Medications and allergies reviewed by this provider. SOCIAL HISTORY Social History Tobacco Use Smoking status: Never Smoker Smokeless tobacco: Never Used Substance Use Topics Alcohol use: Not on file Drug use: Not on file REVIEW OF SYSTEMS Review of Systems ROS: constitutional-neg, HENT-neg, Eyes- neg, heart-neg, respiratory-neg, GI- nasuea, -neg, skin-neg, lymph-neg, MSK- neg, All systems neg except as noted above in HPI. OBJECTIVE: BP 125/84 Pulse 84 Temp 36.7 C (98 F) (Oral) Resp 16 Ht 167.6 cm (5' 6) Wt 80.2 kg (176 lb 12.8 oz) SpO2 99% BMI 28.54 kg/m . Vital signs reviewed by this provider. Physical Exam Vitals reviewed. Constitutional: General: She is not in acute distress. Appearance: Normal appearance. She is normal weight. She is not ill-appearing, toxic-appearing or diaphoretic. HENT: Head: Normocephalic and atraumatic. No right periorbital erythema or left periorbital erythema. Eyes: General: Lids are normal. Conjunctiva/sclera: Conjunctivae normal. Pupils: Pupils are equal, round, and reactive to light. Cardiovascular: Rate and Rhythm: Normal rate and regular rhythm. Heart sounds: Normal heart sounds. Pulmonary: Effort: Pulmonary effort is normal. Breath sounds: Normal breath sounds and air entry. Abdominal: General: Abdomen is flat. Bowel sounds are normal. Palpations: Abdomen is soft. Tenderness: There is no abdominal tenderness. There is no right CVA tenderness, left CVA tenderness, guarding or rebound. Negative signs include Rowe's sign, McBurney's sign, psoas sign and obturator sign. Lymphadenopathy: Cervical: No cervical adenopathy. Skin: General: Skin is warm. Findings: No rash. Neurological: General: No focal deficit present. Mental Status: She is alert and oriented to person, place, and time. Psychiatric: Behavior: Behavior is cooperative. ASSESSMENT/PLAN: 1. Nausea - ICD9: 787.02, ICD10: R11.0 (primary diagnosis) 2. Irregular menses - ICD9: 626.4, ICD10: N92.6 x1 week No other sick symptoms Unable to urinate here in the clinic for further work up. Sent home with Urine collection supplies and instructed to come back in a sample by 6:30 tonight for testing. She VU - HCG QUAL UR B/O- Not performed. Could not urinate - UA DIP, URINE (POC)- Not performed. Could not urinate - Negative home test yesterday - Advised PCP or CORE MAKER follow up Call your TRAVELING CLERK Encourage fluids, rest. Fallon foods Tylenol and Motrin If you cannot drink or keep down fluids- go to ER for dehydration. If you have worsening abdominal pain- go to ER Call PCP if sx worsen or no better. If symptoms worsen, or new symptoms develop go to ER. If you have worsening of breathing or breathing changes- go to ER. If you have persistent fever unrelieved by Tylenol/Motrin- go to the ER. Discussed all red flag symptoms and reasons to go to ER No further questions. Follow up as needed. Barriers to learning: none. The patient verbalizes understanding and is in agreement with plan of care. Amos Wright PA-C Medical Decision Making: Problems: Moderate: Acute illness with systemic symptoms Data: Unique test(s) ordered: 3+ Risk: Low: Low risk from testing/treatment Moderate: Drug management Medical Decision Making Level: 4 - Moderate I spent a total of 20 minutes on the date of the service which included preparing to see the patient, [id number] patient care, completing clinical documentation, performing a medically appropriate examination, counseling and educating the patient/family/caregiver and ordering medications, tests, or procedures. documented in this encounter [facility] 05-02-2022 Note HNO ID: [id number] Author: Amos Wright PA-C Service: ? Author Type: Physician Bioinformatics Scientist Type: Progress Notes Filed: 05/02/2022 7:36 PM Note Text: 05/02/2022 Patient presents with: Nausea Work Note SUBJECTIVE: This is a 17 year old female that is here for a return to work letter. She initially stated that she came in for a work excuse letter. She and a friend (whom she works with) missed a day of work 7 days ago, and her work requires her to have a return to work letter. She states she missed work due to nausea, which has resolved. Then she states nausea actually has not resolved, and has been off and on daily x 7 days. She had a negative test at home yesterday. She is not on BC. She has irregular menses, and so, does not know when her LMP was. She then states she has had off and on STACY and urine frequency. I'm urinating constantly. Though she states she eats and drinks little due to decreased appetite. She denies dysuria or other UTI symptoms. No vaginal complaints. No diarrhea, abdominal pain, back pain, fever, chills, sweats, or other sick symptoms. . No sinus symptoms, cough, or rash. Denies fever, chills, sweats, or fatigue. Patient denies wheezing, shortness of breath, increased WOB, or chest pain. No other URI symptoms. No other sick symptoms. Pain on scale of 0-10 with 0 being no pain and 10 being greatest pain: 0 Nothing makes the symptoms better. Nothing makes them worse. Self-treatment:. none The severity is mild and the symptoms are not improving. The patient did not have a similar problem in the last 3 months. The patient did not take any antibiotics in the last 3 months. Barriers to learning: none. Reviewed meds, OTCs, herbals or supplements. Reviewed allergies, medications, social history, and past medical history. No past medical history on file. ALLERGIES Patient has no known allergies. MEDICATIONS No current outpatient medications on file. No current facility-administered medications for this visit. Medications and allergies reviewed by this provider. SOCIAL HISTORY Social History Tobacco Use - Smoking status: Never Smoker - Smokeless tobacco: Never Used Substance Use Topics - Alcohol use: Not on file - Drug use: Not on file REVIEW OF SYSTEMS Review of Systems ROS: constitutional-neg, HENT-neg, Eyes- neg, heart-neg, respiratory-neg, GI- nasuea, -neg, skin-neg, lymph-neg, MSK- neg, All systems neg except as noted above in HPI. OBJECTIVE: BP 125/84 Pulse 84 Temp 36.7 ?C (98 ?F) (Oral) Resp 16 Ht 167.6 cm (5' 6) Wt 80.2 kg (176 lb 12.8 oz) SpO2 99% BMI 28.54 kg/m? . Vital signs reviewed by this provider. Physical Exam Vitals reviewed. Constitutional: General: She is not in acute distress. Appearance: Normal appearance. She is normal weight. She is not ill-appearing, toxic-appearing or diaphoretic. HENT: Head: Normocephalic and atraumatic. No right periorbital erythema or left periorbital erythema. Eyes: General: Lids are normal. Conjunctiva/sclera: Conjunctivae normal. Pupils: Pupils are equal, round, and reactive to light. Cardiovascular: Rate and Rhythm: Normal rate and regular rhythm. Heart sounds: Normal heart sounds. Pulmonary: Effort: Pulmonary effort is normal. Breath sounds: Normal breath sounds and air entry. Abdominal: General: Abdomen is flat. Bowel sounds are normal. Palpations: Abdomen is soft. Tenderness: There is no abdominal tenderness. There is no right CVA tenderness, left CVA tenderness, guarding or rebound. Negative signs include Rowe's sign, McBurney's sign, psoas sign and obturator sign. Lymphadenopathy: Cervical: No cervical adenopathy. Skin: General: Skin is warm. Findings: No rash. Neurological: General: No focal deficit present. Mental Status: She is alert and oriented to person, place, and time. Psychiatric: Behavior: Behavior is cooperative. ASSESSMENT/PLAN: 1. Nausea - ICD9: 787.02, ICD10: R11.0 (primary diagnosis) 2. Irregular menses - ICD9: 626.4, ICD10: N92.6 x1 week No other sick symptoms Unable to urinate here in the clinic for further work up. Sent home with Urine collection supplies and instructed to come back in a sample by 6:30 tonight for testing. She VU - HCG QUAL UR B/O- Not performed. Could not urinate - UA DIP, URINE (POC)- Not performed. Could not urinate - Negative home test yesterday - Advised PCP or CORE MAKER follow up Call your TRAVELING CLERK Encourage fluids, rest. Fallon foods Tylenol and Motrin If you cannot drink or keep down fluids- go to ER for dehydration. If you have worsening abdominal pain- go to ER Call PCP if sx worsen or no better. If symptoms worsen, or new symptoms develop go to ER. If you have worsening of breathing or breathing changes- go to ER. If you have persistent fever unrelieved by Tylenol/Motrin- go to the ER. Discussed all red flag symptoms and reaso (more content not included)... [facility] 05-02-2022 Instructions Amos Wright PA-C - 05/02/2022 3:26 PM EDT ASSESSMENT/PLAN: 1. Nausea - ICD9: 787.02, ICD10: R11.0 (primary diagnosis) 2. Irregular menses - ICD9: 626.4, ICD10: N92.6 3. Leukocytes in urine - ICD9: 791.7, ICD10: R82.998 4. Urinary frequency - ICD9: 788.41, ICD10: R35.0 - HCG QUAL UR B/O- negative - UA DIP, URINE (POC) - URINE CULTURE - NITROFURANTOIN MONOHYDRATE & MACROCRYSTAL 100 MG ORAL CAP - GLUCOSE, BLOOD (POC)- normal 5. Encounter to establish care - ICD9: V65.8, ICD10: Z76.89 - ESTABLISH WITH PRIMARY CARE NEW PATIENT - Advised PCP or CORE MAKER follow up Call your TRAVELING CLERK - Work excuse provided Encourage fluids, rest. Fallon foods Tums before bed and in the morning Tylenol If you cannot drink or keep down fluids- go to ER for dehydration. If you have worsening symptoms- go to ER Call PCP if sx worsen or no better. If symptoms worsen, or new symptoms develop go to ER. If you have worsening of breathing or breathing changes- go to ER. If you have persistent fever unrelieved by Tylenol/Motrin- go to the ER. Discussed all red flag symptoms and reasons to go to ER No further questions. Follow up as needed. Barriers to learning: none. The patient verbalizes understanding and is in agreement with plan of care. Amos Wright PA-C documented in this encounter [facility] 05-02-2022 Nurse Note Patient presents with: Nausea Work Note documented in this encounter [facility] 09-26-2021 Hospital Discharge instructions Hieu Schroeder, NIKI - SLASH TRIMMER - 09/26/2021 Walk in appointments are at Noon at the [facility] Professional services, you will start by seeing a counselor and will go from there, counseling could be extremely beneficial for you The following attachments cannot be sent through Care Everywhere.Mental Health Crisis: Getting Help: General Info (Kyrgyz)Suicidal Thoughts (Kyrgyz)Depression: Self Care (Kyrgyz)Depression: Undiagnosed: General Info (Kyrgyz)documented in this encounter [facility] Work Phone: Evaluation note Diagnosis Cyst of left ovary- Primary Other and unspecified ovarian cyst documented in this encounter [facility] Work Phone: Evaluation note* Diagnosis Mass of joint of right wrist documented in this encounter [facility] Work Phone: Evaluation note* Diagnosis Mass of joint of right wrist documented in this encounter [facility] Work Phone: Evaluation note* Diagnosis Depression, unspecified depression type- Primary Suicidal thoughts Suicidal ideation 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 documented in this encounter [facility] Work Phone: Evaluation note* Diagnosis Abdominal pain, left lower quadrant- Primary documented in this encounter [facility] Work Phone: Evaluation note* Diagnosis Nausea- Primary Nausea alone Irregular menses Irregular menstrual cycle Leukocytes in urine Other cells and casts in urine Urinary frequency Encounter to establish care Other reasons for seeking consultation [facility] Diagnosis Contusion of right wrist, initial encounter- Primary Strain of neck muscle, initial encounter documented in this encounter [facility] Work Phone: Evaluation note* Diagnosis Vitamin D deficiency- Primary Unspecified vitamin D deficiency documented in this encounter [facility] note* Diagnosis Viral URI with cough- Primary Acute upper respiratory infections of unspecified site Pharyngitis, unspecified etiology Headache, unspecified headache type documented in this encounter [facility] note* Diagnosis Food impaction of esophagus, initial encounter- Primary documented in this encounter [facility] noteNo assessment information availableWTogus [facility] Work Phone: Hospital Discharge instructions* Instructions* Ziggy Salazar MD - 06/16/2021 Use Motrin 600 mg [id number]-klu-[id number] every 6 hours as needed for pain. Use it with food. You do have a left ovarian cyst. This does need follow-up to make sure it improves and also to make sure it is nothing more serious. Often these are benign cysts but important to follow-up with TRAVELING CLERK. Return here if any other problems or concerns. * Attachments The following attachments cannot be sent through Care Everywhere. * Ovarian Cyst: Functional (Kyrgyz) documented [facility] this [facility] Work Phone: Hospital Discharge instructions* Attachments The following attachments cannot be sent through Care Everywhere. * Abdominal Pain (Kyrgyz) documented [facility] this [facility] Work Phone: Hospital Discharge instructions* Attachments The following attachments cannot be sent through Care Everywhere. * Food Obstruction (Kyrgyz) [facility] Additional Instructions Please make sure you take the entire course of antibiotics prescribed. The doxycycline to treat chlamydia. The metronidazole is to treat bacterial vaginosis. Please follow-up with TRAVELING CLERK and family medicine. Please contact any partners about your diagnosis of they can be tested and treated appropriately. Please also follow-up with primary care medicine. Begin referral for the [facility]. You did have a mild anemia. I would recommend taking nugc-jjv-rtskdoi iron supplement twice a day.[facility] Work Phone: Reason for referral (narrative)No reason for referral information availableWTogus VA Medical Center Work Phone: Reason for Referral Status Reason Specialty Diagnoses / Procedures Referred By Contact Referred To Contact [facility] Required Obstetrics & Gynecology / Obstetrics and Gynecology Diagnoses Cyst of left ovary Ziggy Salazar MD [address] [place] [address] Afl Spi Yesi Track Laying Supervisor [address] [place] [id number] Scheduling Instructions [facility] [employer]FIN[employer] OPERATOR [place] [address] [place] [address] Status Reason Specialty Diagnoses / Procedures Referre d By Contact Referred To Contact [facility] Diagnoses Mass of joint of right wrist Procedures US EXTREMITY NON VASCULAR COMPLETE Richard Jimenez MD [address] [place] [address] Status Reason Specialty Diagnoses / Procedures Referre d By Contact Referred To Contact [facility] Diagnoses Mass of joint of right wrist Procedures MRI UPPER EXTREMITY RIGHT W JT WO CONTRAST Richard Jimenez MD [address] [place] [address] Specialty Diagnoses / Procedures Referred By Farrukh vu Referred To Contact Diagnoses Encounter to establish care Procedures ESTABLISH WITH PRIMARY CARE NEW PATIENT OFFICE/OUTPATIENT [facility] 60-74 MINUTES Amos Wright PA-C [address] [place] [address] Referral ID Status Reason Start Date Expiration Date Visits Requested Visits Authorized [id number] Authorized PCP Requested Referral 05/02/2022 05/02/2023 1 1 Summary Purpose Family History No Family History Records FoundNo Family History Records FoundNo Family History Records FoundNo Family History Records FoundNo Family History Records FoundNo Family History Records FoundNo Family History Records Found Advance Directives No Advanced Directives Records Found Advance Directive Response Recorded Date/ Time Do you have a Healthcare Power of Senior Clinical Research Scientist? No May 24, 2025 9:25am Chief Complaint and Reason for Visit Chief Complaint Admit Date abd pain May 24, 2025 9:24 am Additional Source Comments Reason for Visit (unrecogniz ed section and content) Reason Comments Abdominal Pain Emesis Reason Comments Suicidal has not been eating, making herself throw up, 3-4 weeks, feels very depressed - grandfather , has been cutting herself on her thighs. has been cutting herself for a while. states she is supposed to take lexapro. denies specific plan in place to harm herself. Reason Comments Abdominal Pain Reason Comments Nausea Work Note Reason Comments Results Reason Comments Fall Neck and right wrist Reason Comments Vaginal Bleeding Reason Comments Headache Sore throat yesterda y hurts to swallow cough Reason Comments Food Bolus in Throat Food Bolus Stuck in Throat: Pt eating mac and cheese with peterson bits; food bolus stuck around 2230 tonight. Scheduled Active and Recently Administ ered Medications (unrecognized section and content) Medication Order 06/14/2021 06/15/2021 06/16/2021 0.9 % sodium chloride bolus (COMPLETED) 1,000 mL, Intravenous, at 1,000 mL/hr, Administer over 1 Hours, ONCE, On Sat06/16/21 at 0518, For 1 dose 0551 (New Bag - Prov ider: Ayesha Huertas RN)0652 (Stopped - Provider: Ayesha Huertas RN) morphine injection 4 mg (COMPLETED) 4 mg, Intravenous, ONCE, On Sat06/16/21 at 0518, For 1 dose, If oral and IV narcotics ordered, use oral first and only use IV if oral is ineffective or cannot take oral. Do Not give oral and IV within 1 hour of each other unless specifically ordered. 0552 (Given - Provid er: Ayesha Huertas RN) ondansetron (ZOFRAN) injection 4 mg (COMPLETED) 4 mg, Intravenous, ONCE, On Sat06/16/21 at 0518, For 1 dose 0552 (Given - Provid er: Ayesha Huertas RN) Scheduled Medication Order 01/30/2023 01/31/2023 02/01/2023 aluminum & magnesium hydroxide-simethicone (Mylanta) 200-200-20 MG/5ML oral suspension 10 mL (COMPLETED) 10 mL, Oral, Once, On Sat02/01/23 at 0105, For 1 dose 0143 (Given - Provid er: Janette Rosado LPN) glucagon (human recombinant) injection 1 mg (COMPLETED) 1 mg, IntraVENous, Once, On Jessica 01/31/23 at 2345, For 1 dose 0029 (Given - Provid er: Trang Odom RN) lidocaine (Xylocaine) 2 % mouth solution 15 mL (COMPLETED) 15 mL, Mouth/Throat, Once, On 02/01/23 at 0105, For 1 dose 0143 (Given - Provid er: Janette Rosado LPN) Ordered Prescriptions (unrec ognized section and content) Prescription Sig Dispensed Refills Start Date End Da te escitalopram (LEXAPRO) 20 MG tablet Take 1 tablet by mouth daily 30 tablet 0 09/26/2021 Prescription Sig Dispensed Refills Start Date End Da te naproxen (NAPROSYN) 500 MG tablet Take 1 tablet by mouth 2 times daily 20 tablet 0 05/06/2022 Care Teams (unrecognized sec tion and content) Fuel Buyer Relationship Specialty Start Date End Date Mariama Garcia [address] [place] [phone] PCP - General 08/29/17 Fuel Buyer Relationship Specialty Start Date End Date [facility] [address] [place] [address] PCP - General Pediatrics 07/16/20 Fuel Buyer Relationship Specialty Start Date End Date EdilbertoCassie larose [facility] [address] [place] [address] PCP - General Pediatrics 07/16/20 Fuel Buyer Relationship Specialty Start Date End Date Mariama Garcia [address] [place] [phone] PCP - General 08/29/17 Fuel Buyer Relationship Specialty Start Date End Date Cassie Casanova [facility] [address] [place] [id number] PCP - General Pediatrics 07/16/20 Fuel Buyer Relationship Specialty Start Date End Date Cassie Casanova [facility] [address] [place] [id number] PCP - General Pediatrics 07/16/20 Fuel Buyer Relationship Specialty Start Date End Date Mariama Garcia [address] [place] [address] PCP - General 08/29/17 Fuel Buyer Relationship Specialty Start Date End Date Cassie Casanova [facility] [address] [place] [address] PCP - General Pediatrics 07/16/20 Fuel Buyer Relationship Specialty Start Date End Date Sumit Palacios [address] [place] [address] PCP - General 12/11/21 Team Status: Active Member Role/Relationship Status Dates No Primary Care Physician Primary Care Provider Active Team Status: Inactive Member Role/Relationship Status Dates Dr. Shy Lozano , Emergency Provider Active Start: May 24, 2025 End: May 24, 2025 No Primary Care Physician Primary Care Provider Active Start: May 24, 2025 End: May 24, 2025 Source Comments (unrecognize d section and content) In the event this informatio n is protected by the Federal Confidentiality of Alcohol and Drug Abuse Patient Records regulations: The Federal rules restrict any use of the information to criminally investigate or prosecute any alcohol or drug abuse patient.[facility] the event this information is protected by the Federal Confidentiality of Alcohol and Drug Abuse Patient Records regulations: The Federal rules restrict any use of the information to criminally investigate or prosecute any alcohol or drug abuse patient.[facility] the event this information is protected by the Federal Confidentiality of Alcohol and Drug Abuse Patient Records regulations: The Federal rules restrict any use of the information to criminally investigate or prosecute any alcohol or drug abuse patient.[facility] the event this information is protected by the Federal Confidentiality of Alcohol and Drug Abuse Patient Records regulations: The Federal rules restrict any use of the information to criminally investigate or prosecute any alcohol or drug abuse patient.[facility] the event this information is protected by the Federal Confidentiality of Alcohol and Drug Abuse Patient Records regulations: The Federal rules restrict any use of the information to criminally investigate or prosecute any alcohol or drug abuse patient.[facility] INFORMATION SOURCE (unrecogn ized section and content) DATE CREATED AUTHOR 06/06/2022 [facility] DATE CREATED AUTHOR AUTHOR'S ORGANIZ ATION 06/23/2022 [facility] DATE CREATED AUTHOR AUTHOR'S ORGANIZ ATION 06/27/2022 [facility] DATE CREATED AUTHOR AUTHOR'S ORGANIZ ATION 02/02/2023 [facility] DATE CREATED AUTHOR AUTHOR'S ORGANIZ ATION 03/10/2024 [facility] DATE CREATED AUTHOR AUTHOR'S ORGANIZ ATION 02/06/2025 DATE CREATED AUTHOR AUTHOR'S ORGANIZ ATION 05/24/2025 [facility] Goals (unrecognized section and content) Goals may be documented in a n alternate section FOR RECORDS PERTAINING TO PATIENTS WHO ARE OR HAVE BEEN ENROLLED IN A CHEMICAL DEPENDENCY/SUBSTANCEABUSE PROGRAM, SOME INFORMATION MAY BE OMITTED. This clinical summary was aggregated from multiple sources. Caution should be exercised in using it in the provision of clinical care. This summary normalizes information from multiple sources, and as a consequence, information in this document may materially change the coding, format and clinical context of patient data. In addition, data may be omitted in some cases. CLINICAL DECISIONS SHOULD BE BASED ON THE PRIMARY CLINICAL RECORDS. [facility]. provides no warranty or guarantee of the accuracy or completeness of information in this document.
--- NOTE | 2025-05-26 02:04 | ED.VIS.GI ---
HPI HPI - GI History of Present Illness Chief Complaint: Abd Pain Informant: patient Narrative Narrative: 20-year-old female was seen here yesterday after having 2-3 weeks worth of abdominal discomfort vaginal discharge, she was diagnosed with chlamydia and started on treatment after having relatively negative workup. She states last night and today, after taking the antibiotic pills, she has been having a lot of abdominal discomfort and some nausea. It seems to be on the left side of her abdomen more now where she was having pain in the right pelvis. That is still there as well. She denies any other new symptoms such as fevers or chills. PFSH PFSH Medical History no medical history Home Medications ?Medication ?Instructions ?Recorded ?Last Taken ?Type doxycycline monohydrate 100 mg 100 mg PO BID #14 CAPSULES 05/24/25 Unknown Rx capsule metronidazole 500 mg tablet 500 mg PO BID 7 days #14 tabs 05/24/25 Unknown Rx promethazine 25 mg tablet 25 mg PO Q6H PRN PRN Nausea #20 05/26/25 Unknown Rx TABLETS Allergy/AdvReac Type Severity Reaction Status Date / Time latex Allergy Mild Rash Verified 05/26/25 00:44 Social History Smoking Status: Never smoker ROS ROS ED Constitutional Constitutional ED: Denies chills or fever(s) Eyes Eyes: Denies change in vision or diplopia ENT ENT ED: Denies rhinorrhea or sore throat Cardiovascular Cardiovascular: Denies chest pain or palpitations Respiratory/Chest Respiratory/Chest: Denies cough or dyspnea Gastrointestinal Gastrointestinal: Reports abdominal pain and nausea; Denies diarrhea or vomiting Genitourinary Genitourinary ED: Denies dysuria or hematuria Musculoskeletal Musculoskeletal: Denies back pain or neck pain Integumentary Denies abscess or rash Neurologic Neurologic: Denies headache(s), paresthesias or weakness Psychiatric Psychiatric: Denies anxiety or suicidal thoughts EXAM Physical Exam Const Vital Signs: 05/26/25 00:45 05/26/25 02:20 Temperature 98.8 F 98 F Temperature Source Oral Pulse Rate 76 63 Respiratory Rate 18 18 Blood Pressure 155/93 H 143/87 H Blood Pressure Mean 113 105 Pulse Ox 99 100 Oxygen Delivery Method Room Air Positive well nourished and well developed Constitutional Narrative: Well-appearing NAD General Appearance ED: well developed and NAD HEENT Reports moist mucous membranes normocephalic and atraumatic Eyes PERRL and EOMs intact bilaterally Neck full ROM and supple Resp normal respiratory effort and clear to auscultation bilaterally Cardio regular rate, regular rhythm and no murmurs GI non-distended GI Narrative: Some tenderness in the suprapubic area as well as the epigastrium. No guarding or rebound. Auscultation: normoactive bowel sounds Palpation: soft Back/Spine no CVA tenderness General Back: other FROM Extremity normal to inspection General Extremety ED: Negative for edema, pulses abnormal or tenderness General Extremity: Negative for edema or pulses abnormal Neuro oriented x3, CN's II-XII intact bilaterally and no sensory deficits noted Sensorium / Orientation: awake and alert Motor Exam: strength 5/5 throughout Skin no rashes or lesions noted and no wounds MDM MDM MDM Narrative Medical decision making narrative: I reviewed the patient's visit from yesterday. She had quite a few test including blood tests, positive chlamydia test, positive wet prep for clue cells, and ultrasound that showed she had normal female pelvis and no evidence of a TOA, and a pelvic exam that showed no CMT. Given all this, she was basically treated for chlamydia vaginitis/bacterial vaginosis and/or cervicitis without suspicion for PID which I think is totally appropriate based on what I am seeing. Given the history, the patient is having more discomfort and nausea right after taking the antibiotics. She was placed on doxycycline and metronidazole. This is appropriate for what the testing showed. Given that she had clue cells and vaginal discharge, it certainly is possible that she has both bacterial vaginosis in addition to chlamydia cervicitis and therefore I would not discontinue either 1 of these medications. However if I had to choose, the metronidazole is probably causing her symptoms. I had gave her a GI cocktail, Zofran, and dicyclomine. She was much improved, although she was still little nauseated so we gave her an additional promethazine prior to discharge. I do not think she needs any other testing right now for the reasons above, the patient agrees that makes sense. I gave her prescription for promethazine, advised her to take her metronidazole on a full stomach if able, and she may try taking an occasional dose of Mylanta if she needs it for more discomfort. History & Record Review Additional record(s) reviewed:: Prior ED visit Discharge Plan Triage Chief Complaint: Abd Pain ED Provider: Johnathan Saez Dx/Rx/DC Orders Clinical Impression: Drug-induced dyspepsia, Bacterial vaginosis, Chlamydia, Lower abdominal pain Instructions: Metronidazole Oral Tablet 500 mg, ED Drug Reaction, Other Prescriptions: New promethazine 25 mg tablet 25 mg PO Q6H PRN PRN (Reason: Nausea) Qty: 20 0RF Continued metronidazole 500 mg tablet 500 mg PO BID 7 Days Qty: 14 0RF doxycycline monohydrate 100 mg capsule 100 mg PO BID Qty: 14 0RF Primary Care Provider: Care Physician,No Primary Referrals: Trang Kennedy MD [Med Staff - Active Staff] - 3-5 Days Print Language: Lithuanian Disposition Disposition: Home, Self Care Discharge Date/Time: 05/26/25 02:21
[2025-05-26 02:20] VITALS: BP 143/87; PULSE 63; RESP 18; TEMP 36.6; O2SAT 100
== END 2025-05-26 02:21 | disposition home or self-care (01) ==
PROVIDERS: Emergency Provider Emergency Medicine; Visit Provider Emergency Medicine
DX: R10.13 Epigastric pain (principal); N76.0 Acute vaginitis; R10.30 Lower abdominal pain, unspecified; A56.09 Other chlamydial infection of lower genitourinary tract
CPT/HCPCS: 99283